=== PATIENT | male | born 1980 ===

== ENCOUNTER 2020-02-16 16:38 | Outpatient (REF) | payer OTHER, SELFPAY | END 2020-02-16 16:39 | disposition home or self-care (01) | LOC: HO.LAB 16:38 | PROVIDERS: Visit Provider Nurse Practitioner Family | DX: B00.1 Herpesviral vesicular dermatitis (principal) | CPT/HCPCS: 87255 ==

== ENCOUNTER 2020-08-23 11:49 | Outpatient (REF) | payer OTHER, SELFPAY ==
[2020-08-23 13:31] LABS: Glucose Urine UA NEG (NEG); Leukocyte Esterase Urine NEG (NEG); Nitrite Urine NEG (NEG); Specific Gravity - Urine >= 1.030 (1.005-1.025); Urine Blood NEG (NEG); Urine Ketones NEG (NEG); Urine Protein NEG (NEG-TRACE)
[2020-08-23 13:31] LABS: MANUAL DIFF FLAG NO
[2020-08-23 13:34] LABS: Appearance Urine HAZY; Color Urine DARK YELLOW
[2020-08-23 13:43] LABS: Basophils Absolute Auto 0.1 X10*3/uL (0.0-0.2); Basophils Percent Auto 1.2 % (0-2); Eosinophils Absolute Auto 0.2 X10*3/uL (0.0-0.4); Eosinophils Percent Auto 2.5 % (0-4); Hematocrit 42.6 % (42-52); Hemoglobin 14.1 g/dl (14.0-18.0); Imm Gran Abs Auto 0.01 X10*3/uL (0.00-0.03); Imm Gran Pct Auto 0.2 % (0.0-0.4); Lymphocytes Absolute Auto 2.2 X10*3/uL (1.2-4.9); Lymphocytes Percent Auto 37.3 % (20-40); Mean Corpuscular HGB Conc 33.1 g/dl (31.0-36.0); Mean Corpuscular Hemoglobin 30.7 pg (27.0-33.0); Mean Corpuscular Volume 92.8 fL (80-98); Mean Platelet Volume 10.2 fL (9.4-12.4); Monocytes Absolute Auto 0.5 X10*3/uL (0.1-1.2); Monocytes Percent Auto 8.4 % (2-11); Neutrophils Percent Auto 50.4 % (45-73); Platelet Count 333 X10*3/uL (160-400); Red Blood Count 4.59 X10*6/uL (4.60-5.80); Red Cell Distribution Width 12.8 % (11.0-16.0)
[2020-08-23 14:01] LABS: Alanine Aminotransferase 22 U/L (0-40); Albumin Level 4.4 g/dL (3.5-5.0); Alkaline Phosphatase 57 U/L (39-117); Anion Gap 13 (12-20); Aspartate Amino Transferase 29 U/L (5-37); Bilirubin Total 1.7 mg/dL (0.0-1.0); Blood Urea Nitrogen 20 mg/dL (9-16); Calcium 9.5 mg/dL (8.4-10.2); Carbon Dioxide 29 mmol/L (22-29); Chloride 103 mmol/L (96-108); Cholesterol 181 mg/dL; Estimated Glomerular Filt Rate > 60; Glucose Fasting 93 mg/dL (60-99); HDL Cholesterol 75 mg/dL; LDL Cholesterol Calculated 96 mg/dl; Potassium 4.1 mmol/L (3.3-5.1); Sodium 141 mmol/L (135-145); Total Protein 6.9 g/dL (6.5-8.0); Triglycerides 50 mg/dL
[2020-08-23 14:15] LABS: TSH reflex Free T4 1.92 uIU/mL (0.32-4.0); Vitamin D 25-OH Total 18.2 ng/mL (>30)
[2020-08-23 14:30] LABS: Folate 16.6 ng/mL (> or = 4.0); Vitamin B12 215 pg/mL (200-900)
[2020-08-23 14:36] LABS: Erythrocyte Sedimentation Rate 19 MM/HR (0-15)
== END 2020-08-23 11:50 | disposition home or self-care (01) ==
LOC: HO.LAB 11:49
PROVIDERS: PCP Internal Medicine; Visit Provider Internal Medicine
DX: Z00.00 Encounter for general adult medical examination without abnormal findings (principal); E66.9 Obesity, unspecified; E78.00 Pure hypercholesterolemia, unspecified; R20.2 Paresthesia of skin; I10 Essential (primary) hypertension; E55.9 Vitamin D deficiency, unspecified
CPT/HCPCS: 36415; 80053; 80061; 81003; 82306; 82607; 82746; 84443; 85025; 85652

== ENCOUNTER → 2021-01-16 11:37 | Outpatient (BNVA) | payer OTHER, SELFPAY | PROVIDERS: PCP Internal Medicine; Referring Provider Internal Medicine; Visit Provider Psychiatry & Neurology Neurology ==

== ENCOUNTER → 2021-01-23 11:36 | Outpatient (BNVA) | payer OTHER, SELFPAY | PROVIDERS: PCP Internal Medicine; Referring Provider Internal Medicine; Visit Provider Nurse Practitioner Family ==

== ENCOUNTER → 2021-02-21 12:47 | Outpatient (REF) | payer OTHER, SELFPAY | LOC: HO.SL 12:47 | PROVIDERS: PCP Internal Medicine; Visit Provider Nurse Practitioner Family | DX: R06.81 Apnea, not elsewhere classified (principal); R40.0 Somnolence; R06.83 Snoring | CPT/HCPCS: 95806 ==

== ENCOUNTER → 2021-05-08 14:01 | Outpatient (BNVA) | payer OTHER, SELFPAY | PROVIDERS: PCP Internal Medicine; Referring Provider Internal Medicine; Visit Provider Nurse Practitioner Family ==

== ENCOUNTER 2022-03-04 16:32 | Outpatient (REF) | payer OTHER, SELFPAY ==
[2022-03-04 17:19] LABS: Influenza A PCR NEGATIVE (Negative); Influenza B PCR NEGATIVE (Negative); Resp Syncy Virus RNA Qual PCR NEGATIVE (Negative); SARS COV2 PCR INHOUSE POSITIVE (Negative)
== END 2022-03-04 16:33 | disposition home or self-care (01) ==
LOC: HO.LNP 16:32
PROVIDERS: Visit Provider Nurse Practitioner Family
DX: Z20.822 Contact with and (suspected) exposure to COVID-19 (principal); J06.9 Acute upper respiratory infection, unspecified
CPT/HCPCS: 0241U

== ENCOUNTER → 2022-07-18 15:36 | Outpatient (BNVA) | payer OTHER, SELFPAY | PROVIDERS: PCP Internal Medicine; Visit Provider Nurse Practitioner Family | DX: Z13.89 Encounter for screening for other disorder (principal) ==

== ENCOUNTER 2022-12-05 09:20 | Emergency (ER) | payer OTHER, SELFPAY ==
--- NOTE | 2022-12-05 09:25 | ECG_ITS ---
Test Reason : chest pain Blood Pressure : / mmHG Vent. Rate : 066 BPM Atrial Rate : 066 BPM P-R Int : 190 ms QRS Dur : 114 ms QT Int : 422 ms P-R-T Axes : 015 -39 002 degrees QTc Int : 442 ms Normal sinus rhythm Left axis deviation Moderate voltage criteria for LVH, may be normal variant ( R in aVL , [place] product ) Abnormal ECG When compared with ECG of 27-OCT-2019 09:31, No significant change was found Referred By: Generic ED Physician Electronically Signed By:JENNIFER STROUD
[2022-12-05 09:52] VITALS: BP 129/87; PULSE 70; RESP 10; TEMP 36.7; O2SAT 97; BMI 38.5
[2022-12-05 09:53] LABS: MANUAL DIFF FLAG NO
[2022-12-05 09:57] LABS: Basophils Absolute Auto 0.1 X10*3/uL (0.0-0.2); Basophils Percent Auto 0.7 % (0-2); Eosinophils Absolute Auto 0.2 X10*3/uL (0.0-0.4); Eosinophils Percent Auto 3.2 % (0-4); Hemoglobin 15.4 g/dl (14.0-18.0); Imm Gran Abs Auto 0.02 X10*3/uL (0.00-0.03); Imm Gran Pct Auto 0.3 % (0.0-0.4); Lymphocytes Absolute Auto 2.6 X10*3/uL (1.2-4.9); Lymphocytes Percent Auto 38.5 % (20-40); Mean Corpuscular HGB Conc 34.2 g/dl (31.0-36.0); Mean Corpuscular Hemoglobin 31.2 pg (27.0-33.0); Mean Corpuscular Volume 91.1 fL (80.0-98.0); Mean Platelet Volume 9.7 fL (9.4-12.4); Monocytes Absolute Auto 0.5 X10*3/uL (0.1-1.2); Monocytes Percent Auto 7.6 % (2-11); Neutrophils Absolute Auto 3.4 x10*3/uL (2.0-8.3); Neutrophils Percent Auto 49.7 % (45-73); Platelet Count 279 X10*3/uL (160-400); Red Blood Count 4.94 X10*6/uL (4.60-5.80); Red Cell Distribution Width 12.5 % (11.0-16.0); White Blood Count 6.8 X10*3/uL (4.8-10.8)
[2022-12-05 10:14] LABS: Anion Gap 10 (12-20); Blood Urea Nitrogen 16 mg/dL (9-16); Calcium 9.3 mg/dL (8.4-10.2); Carbon Dioxide 27 mmol/L (22-29); Chloride 106 mmol/L (96-108); Creatinine Clr Calc Pharmacy 125.7; Estimated Glomerular Filt Rate > 60; Glucose Random 97 mg/dL (60-115); Potassium 3.9 mmol/L (3.3-5.1); Sodium 139 mmol/L (135-145)
[2022-12-05 10:25] LABS: Troponin-I High Sensitivity < 2.7 ng/L (<3.5-35.0)
--- NOTE | 2022-12-05 12:31 | ED_ITS ---
HPI - Chest Pain General Chief Complaint: Chest Pain Stated Complaint: chest discomfort Time Seen by Provider: 12/05/22 12:23 Source: patient and old records reviewed Mode of arrival: ambulatory Limitations: no limitations History of Present Illness HPI narrative: 42 yo male with hx of asthma, anxiety, obesity, HLD here with c/o chest pain x 1 month better with burping, no symtoms while exercising at the gym and no other associated symptoms. no known CAD, no travel or procedures in last month. States his job is stressful. this happened 15 years ago and he was told it was stress MD complaint: chest pain Onset (ago): month(s) (1) Timing of current episode: episodic Prior episodes: Yes Onset: during rest Pain location: left chest Pain radiation: none Severity: mild Quality: dull Relieving factors: nothing Exacerbating factors: nothing Treatment prior to arrival: none Related Data Previous Rx's Medication Instructions Recorded azithromycin 250 mg tablet See Rx Instructions PO .COMPLEX #6 07/30/22 tabs prednisone 20 mg tablet 60 mg PO DAILY #9 tabs 07/30/22 albuterol sulfate 90 mcg/actuation 2 puff PO Q6H PRN for wheezing 10/07/22 aerosol inhaler #8.5 ea montelukast 10 mg tablet 10 mg PO BEDTIME #90 tabs 10/30/22 Allergies Allergy/AdvReac Type Severity Reaction Status Date / Time No Known Allergies Allergy Verified 07/30/22 16:32 Review of Systems Review of Systems: Constitutional : No Weight loss, No Fever, No Chills Cardiovascular : pos Chest Pain, no SOB, no Dyspnea on Exertion, No Orthopnea, No Edema, No Palpitations Respiratory : No Cough, No Sputum Gastrointestinal : no Nausea, No Vomiting, No Diarrhea, No abdominal Pain, No Hematochezia, No Melena Genitourinary : No Dysuria, No Urinary Frequency Musculoskeletal : No joint pain, No Myalgias, No Joint Swelling Skin : No Skin Lesions, No rash Neuro : No Weakness, No Numbness, No Dizziness, No Headache Psych : No Anxiety/Panic, No Depression All other systems reviewed and are negative [facility] Past Medical History Attestation statement: The following information was validated with the patient. Source: old records reviewed Medical History Anxiety Asthma Elevated blood pressure reading Excess skin of abdominal wall Obesity (BMI 30-39.9) Obstructive sleep apnea Paresthesia of left arm Pure hypercholesterolemia Vitamin D deficiency Surgical History History of hip surgery History of tonsillectomy Family History Family History Father Healthy adult Mother No problems noted. Sister Healthy adult Social History Social History Housing: House Alcohol intake: current Alcohol intake frequency: a few times a month Patient Tobacco Use Status: Never used Tobacco e-Cigarette/Vaping Use: Never Used Second Hand Smoke Exposure: No service: No Current occupational status: employed Cognitive needs: No Hearing needs: No Vision needs: Yes Physical Exam Vital Signs: Vital Signs: Last Vital Signs Temp 98.1 F 12/05/22 09:52 Pulse 70 12/05/22 09:52 Resp 10 L 12/05/22 09:52 BP 129/87 12/05/22 09:52 Pulse Ox 97 12/05/22 09:52 BMI result Body Mass Index 38.5 Appearance: Alert. Oriented X3. No acute distress. Eyes: Pupils equal, round and reactive to light. ENT: Pharynx normal. Neck: Normal inspection. Neck supple. CVS: Normal heart rate and rhythm. Pulses normal. Respiratory: No respiratory distress. Breath sounds normal. Abdomen: Soft and nontender. Skin: Skin warm and dry. Normal skin color. Normal skin turgor. Extremities: No lower extremity edema. No calf ttp Neuro: Oriented X 3. No motor deficit. No sensory deficit. Medical Decision Making Medical Decision Making MDM Narrative: 42 yo male with hx of asthma, anxiety, obesity, HLD here with c/o atypical chest pain for 1 month on and off with no associated symptoms relieved with burping. He feels great working out without any chest pain so atypical for ACS, PERC negative, he has normal pulses intact distally doubt dissection. EKG no acute ischemia and trop flat - he can follow up with cardiology will trial pepcid x 1 week to see if that improves his symptoms. Differential Diagnosis Differential Diagnoses: The differential diagnosis associated with the presentation includes GERD, atypical chest pain, PERC negative doubt VTE, acs low risk given avid work out without symptoms, MSK pain, dissection low risk given 1 month Admission/Observation Consideration of admission/observation: Escalation of care including admission/observation considered EKG nonischemic trop flat and HEART score = 1 can be followed up as outpatient Lab Data MDM Lab Attestation statement: I reviewed the patient's lab results. trop flat 12/05/22 09:40 12/05/22 09:40 Labs: Lab Results 12/05/22 12/05/22 12/05/22 Range/Units 09:40 09:40 09:40 WBC 6.8 (4.8-10.8) X10*3/uL RBC 4.94 (4.60-5.80) X10*6/uL Hgb 15.4 (14.0-18.0) g/dl Hct 45.0 (42.0-52.0) % MCV 91.1 (80.0-98.0) fL MCH 31.2 (27.0-33.0) pg MCHC 34.2 (31.0-36.0) g/dl RDW 12.5 (11.0-16.0) % Plt Count 279 (160-400) X10*3/uL MPV 9.7 (9.4-12.4) fL Immature Gran % (Auto) 0.3 (0.0-0.4) % Neut % (Auto) 49.7 (45-73) % Lymph % (Auto) 38.5 (20-40) % [place] % (Auto) 7.6 (2-11) % Eos % (Auto) 3.2 (0-4) % Baso % (Auto) 0.7 (0-2) % Lymph # (Auto) 2.6 (1.2-4.9) X10*3/uL [place] # (Auto) 0.5 (0.1-1.2) X10*3/uL Eos # (Auto) 0.2 (0.0-0.4) X10*3/uL Baso # (Auto) 0.1 (0.0-0.2) X10*3/uL Abs Immat Gran (auto) 0.02 (0.00-0.03) X10*3/uL Absolute Neuts (auto) 3.4 (2.0-8.3) x10*3/uL Absolute Nucleated RBC 0.000 (0.0-0.012) X10*3/uL Nucleated RBC % (auto) 0.0 (0.0-0.2) /100WBC Sodium 139 (135-145) mmol/L Potassium 3.9 (3.3-5.1) mmol/L Chloride 106 (96-108) mmol/L Carbon Dioxide 27 (22-29) mmol/L Anion Gap 10 L (12-20) BUN 16 (9-16) mg/dL Creatinine 1.04 (0.5-1.4) mg/dL Estim Creat Clear Calc 125.7 Estimated GFR > 60 Random Glucose 97 (60-115) mg/dL Calcium 9.3 (8.4-10.2) mg/dL Troponin I High Sens < 2.7 (<3.5-35.0) ng/L Independent Interpretation I performed an independent interpretation of an: EKG Interpretation: Rate: 66 Rhythm: NSR [place]: normal Normal P waves. Normal YOU. Normal QRS complex. ST T wave : inverted t waves V1 and III qTC: normal prior studies: no acute ischemia The study has been interpreted contemporaneously by me. . External Record Review External record reviewed: Office record Tests considered The following testing was considered but not selected: CXR but clear lungs and no dyspnea doubt pneumonia Discharge Plan Discharge Clinical Impression: Atypical chest pain Patient Disposition: Home, Self-Care Instructions: Chest Pain (ED) Additional Instructions: take 20mg pepcid over the counter daily for one week to see if this helps symptoms. avoid lat work out for a couple of days. follow up with cardiology for further workup return for worsening symptoms, increased pain, shortness of breath, fainting or any other concerns. Prescriptions: No Action albuterol sulfate 90 mcg/actuation HFA aerosol inhaler 2 puff PO Q6H PRN (Reason: for wheezing) Qty: 8.5 5RF montelukast 10 mg tablet 10 mg PO BEDTIME Qty: 90 1RF azithromycin 250 mg tablet See Rx Instructions PO .COMPLEX Qty: 6 0RF Rx Instructions: take 500 mg today (day 1), then 250 mg for 4 days (days 2-5) PO prednisone 20 mg tablet 60 mg PO DAILY Qty: 9 0RF Referrals: Taran La MD [Physician] - (schedule appointment - may need PCP referral. ) Interventions: ED Discharge Assessment Last Done: 12/05/22 12:55 Discharge Date/Time: 12/05/22 12:56
== END 2022-12-05 12:56 | disposition home or self-care (01) ==
PROVIDERS: Emergency Provider Emergency Medicine; PCP Internal Medicine
DX: R07.89 Other chest pain (principal); E78.00 Pure hypercholesterolemia, unspecified; E66.9 Obesity, unspecified; Z68.38 Body mass index [BMI] 38.0-38.9, adult
CPT/HCPCS: 36415; 80048; 84484; 85025; 93005; 99283

== ENCOUNTER 2023-01-08 17:01 | Emergency (ER) | payer OTHER, SELFPAY ==
--- NOTE | ~2023-01-08 | XR_ITS ---
EXAMINATION: XR CHEST CLINICAL INFORMATION: Chest pain. COMPARISON: 10/27/2019. TECHNIQUE: 2 views of the chest were obtained. FINDINGS: The cardiomediastinal silhouette is normal. There is no focal lung consolidation or pleural effusion. The bony structures and soft tissues are unremarkable. XR/XR chest 2V IMPRESSION: No active cardiopulmonary disease.
--- NOTE | 2023-01-08 17:04 | ECG_ITS ---
Test Reason : CHEST PAIN Blood Pressure : / mmHG Vent. Rate : 069 BPM Atrial Rate : 069 BPM P-R Int : 184 ms QRS Dur : 112 ms QT Int : 410 ms P-R-T Axes : 020 -41 012 degrees QTc Int : 439 ms Normal sinus rhythm Possible Left atrial enlargement Left axis deviation Left ventricular hypertrophy ( R in aVL , [place] product ) Abnormal ECG When compared with ECG of 05-DEC-2022 09:32, No significant change was found Referred By: Emily Rawls Electronically Signed By:JENNIFER STROUD
--- NOTE | 2023-01-08 17:32 | ED_ITS ---
HPI - Chest Pain General Chief Complaint: Chest Pain Stated Complaint: chest pain, back pain. seen same reason last mth Time Seen by Provider: 01/08/23 18:56 Source: patient Mode of arrival: ambulatory Limitations: no limitations History of Present Illness HPI narrative: Patient is a 42 old male who presents emergency department for evaluation of 2 months of left anterior chest pain that has been constant in nature with variable intensity. At times it is made worse with exercise/movement of the extremities, heavy lifting but is also felt while at rest. Denies shortness of breath, difficulty breathing, dizziness, lightheadedness, neck pain, neck stiffness, abdominal pain, nausea, vomiting, numbness or tingling of the extremities. Denies recent lower extremity pain, swelling, redness, prolonged immobilization or surgical procedure, personal history of DVT/PE/malignancy. He endorses history of similar symptoms in the remote past which was thought to be related to stress. Related Data Previous Rx's Medication Instructions Recorded azithromycin 250 mg tablet See Rx Instructions PO .COMPLEX #6 07/30/22 tabs prednisone 20 mg tablet 60 mg (3 x 20 mg) PO DAILY #9 tabs 07/30/22 albuterol sulfate 90 mcg/actuation 2 puff PO Q6H PRN for wheezing 10/07/22 aerosol inhaler #8.5 ea montelukast 10 mg tablet 10 mg PO BEDTIME #90 tabs 10/30/22 Allergies Allergy/AdvReac Type Severity Reaction Status Date / Time No Known Allergies Allergy Verified 01/08/23 17:32 Review of Systems 2 Review of Systems: Yes all other systems are reviewed and are negative [facility] Past Medical History Attestation statement: The following information was validated with the patient. Source: old records reviewed Medical History Obstructive sleep apnea Elevated blood pressure reading Excess skin of abdominal wall Paresthesia of left arm Anxiety Obesity (BMI 30-39.9) Pure hypercholesterolemia Vitamin D deficiency Asthma Surgical History History of hip surgery History of tonsillectomy Family History Family History Father Healthy adult Mother No problems noted. Sister Healthy adult Social History Social History (Reviewed 12/05/22 @ 12:32 by BRITTANY Tadeo Housing: House Alcohol intake: current Alcohol intake frequency: a few times a month Patient Tobacco Use Status: Never used Tobacco Smoked in Last 30 Days: No e-Cigarette/Vaping Use: Never Used Second Hand Smoke Exposure: No Advance Directives: No Advance Directives Information Provided: No service: No Current occupational status: employed Cognitive needs: No Hearing needs: No Vision needs: Yes Physical Exam 2 Vital Signs: Vital Signs: Last Vital Signs Temp 98 F 01/08/23 17:33 Pulse 84 01/08/23 17:33 Resp 18 01/08/23 17:33 BP 137/96 H 01/08/23 17:33 Pulse Ox 100 01/08/23 17:33 O2 Del Method Room Air 01/08/23 17:33 BMI result Body Mass Index 38.1 Appearance: Alert.?Oriented to person, place and time. No acute distress.?Normal affect. Eyes: Pupils equal, round and reactive to light.? ENT: Pharynx normal.?? Neck: Normal inspection.? Neck supple.?? CVS: Heart sounds normal. Normal heart rate and rhythm.? Pulses normal.?? Respiratory: No respiratory distress.? Lung sounds clear to auscultation bilaterally?? Abdomen: Soft and non-tender. Normoactive bowel sounds. No pulsatile mass.?? Skin: Skin warm and dry.? Normal skin color.? ? Extremities: No lower extremity edema.? No calf ttp? Neuro: Moves all extremities spontaneously. Sensation intact bilaterally. CN II- XII intact. No focal neuro deficits. Ambulates with normal steady gait. Course Course Course Narrative: RME: 42-year-old male with past medical history anxiety, asthma, RADHA, HLD presenting to the ED complaining of constant chest pain x2 months. Admits working out w/certain movements makes pain worse & stress makes pain worse. Described as sharp, nonradiating. Denies SOB, LE edema, travel Lungs CTA, CP not reproducible on exam EKG, Labs, CXR ordered Full HPI, ROS and PE to be performed by primary ED provider. Reevaluation(s) Reevaluation #1: CBC is without leukocytosis or anemia, CMP is unremarkable. High sensitive troponin below detectable levels an EKG is without acute ischemic findings. HEART score 1. Unlikely ACS, no indication for admission at this time. Although PERC negative and no risk factors to suggest pulmonary embolism given persistent pain D-dimer was obtained which was negative, reassured patient this is unlikely pulmonary embolism. Advised outpatient follow-up with his primary care provider, who is working to try and obtain earlier outpatient appointment with Cardiology. Currently Cardiology appointment scheduled for March 2023. Although as previously mentioned chest pain is atypical. Time: 21:28 Medications Administered Discontinued Medications Generic Name Dose Route Start Last Admin Trade Name Freq PRN Reason Stop Dose Admin Naproxen 500 mg 01/08/23 20:34 01/08/23 20:41 Naproxen 500 Mg Tablet PO 01/08/23 20:35 500 mg ONCE ONE Administration Medical Decision Making Medical Decision Making [facility] Narrative: Patient is a 42 old male with past medical history of asthma, anxiety, BC, hyperlipidemia presenting to emergency department for evaluation of persistent chest pain as per HPI. The time my examination he is overall well-appearing, nontoxic, afebrile, without tachycardia tachypnea or hypoxia. Pain is atypical in nature, less likely to be ACS, perc negative unlikely pulmonary embolism, pulsatile mass, doubt dissection. Will obtain CBC to evaluate for leukocytosis/ anemia, CMP and lipase to evaluate for abnormal electrolytes /abnormal renal function/ abnormal hepatic/biliary function, EKG and troponin to evaluate for ischemia/ACS. Chest x-ray to evaluate for consolidation/ infiltrate/ mass/ pulmonary congestion. Differential Diagnosis Differential Diagnoses: The differential diagnosis associated with the presentation includes (GERD, atypical chest pain, pulmonary embolism, ACS, musculoskeletal pain) Admission/Observation Consideration of admission/observation: Escalation of care including admission/observation considered (Considered admission for chest pain, see course narrative for further detail) Lab Data [facility] Lab Attestation statement: I reviewed the patient's lab results. (See course narrative for further detail) 01/08/23 18:09 01/08/23 18:09 Labs: Lab Results 01/08/23 01/08/23 Range/Units 18:09 20:50 WBC 8.8 (4.8-10.8) X10*3/uL RBC 5.00 (4.60-5.80) X10*6/uL Hgb 15.7 (14.0-18.0) g/dl Hct 44.9 (42.0-52.0) % MCV 89.8 (80.0-98.0) fL MCH 31.4 (27.0-33.0) pg MCHC 35.0 (31.0-36.0) g/dl RDW 12.2 (11.0-16.0) % Plt Count 325 (160-400) X10*3/uL MPV 9.7 (9.4-12.4) fL Immature Gran % (Auto) 0.5 H (0.0-0.4) % Neut % (Auto) 55.6 (45-73) % Lymph % (Auto) 33.1 (20-40) % [place] % (Auto) 8.2 (2-11) % Eos % (Auto) 1.9 (0-4) % Baso % (Auto) 0.7 (0-2) % Lymph # (Auto) 2.9 (1.2-4.9) X10*3/uL [place] # (Auto) 0.7 (0.1-1.2) X10*3/uL Eos # (Auto) 0.2 (0.0-0.4) X10*3/uL Baso # (Auto) 0.1 (0.0-0.2) X10*3/uL Abs Immat Gran (auto) 0.04 H (0.00-0.03) X10*3/uL Absolute Neuts (auto) 4.9 (2.0-8.3) x10*3/uL Absolute Nucleated RBC 0.000 (0.0-0.012) X10*3/uL Nucleated RBC % (auto) 0.0 (0.0-0.2) /100WBC D-Dimer High Sensitivty < 150 NG/ML Sodium 142 (135-145) mmol/L Potassium 3.7 (3.3-5.1) mmol/L Chloride 104 (96-108) mmol/L Carbon Dioxide 28 (22-29) mmol/L Anion Gap 14 (12-20) BUN 12 (9-16) mg/dL Creatinine 0.90 (0.5-1.4) mg/dL Estim Creat Clear Calc 144.5 Estimated GFR > 60 Random Glucose 87 (60-115) mg/dL Calcium 9.8 (8.4-10.2) mg/dL Total Bilirubin 0.9 (0.0-1.0) mg/dL Direct Bilirubin 0.3 (0.0-0.5) mg/dL AST 20 (5-37) U/L ALT 13 (0-40) U/L Alkaline Phosphatase 69 (39-117) U/L Troponin I High Sens < 2.7 (<3.5-35.0) ng/L Total Protein 7.6 (6.5-8.0) g/dL Albumin 4.4 (3.5-5.0) g/dL Independent Interpretation I performed an independent interpretation of an: EKG and Plain X-Ray (I personally interpreted chest x-ray and agree with radiologist impression, no evidence of consolidation pneumonia or pulmonary congestion) Interpretation: Rate: 69 Rhythm:? Normal sinus rhythm with LVH Normal P waves.? Normal YOU.?? Normal QRS complex.?? ST T wave :??No ST elevation, no ST depression, T-wave inversion in III, which is seen on prior qTC:439 prior studies:? November 2022 The study has been interpreted contemporaneously by me. Radiology Impression Discussion of test interpretation with radiology: I have reviewed the radiologist's reading. Radiologist Impression: XR/XR chest 2V IMPRESSION: No active cardiopulmonary disease. External Record Review External record reviewed: Outpatient record Discharge Plan Discharge Clinical Impression: Atypical chest pain Patient Disposition: Home, Self-Care Instructions: Chest Pain (ED), Noncardiac Chest Pain (ED) Additional Instructions: As discussed you may trial a course of anti-inflammatory medication to help with pain. You can take ibuprofen 200 mg, 3 tablets (600mg) every 6-8 hours as needed for pain, in addition to Tylenol 500 mg, 2 tablets (1,000mg) every 4-6 hours as needed for pain, but not to exceed 3 doses daily (3,000mg).? Please contact your primary care provider to arrange for follow-up within the next 3 days, and further follow-up with cardiology as scheduled. You may return back to the emergency department with any new or worsening symptoms or concerns. Prescriptions: No Action albuterol sulfate 90 mcg/actuation HFA aerosol inhaler 2 puff PO Q6H PRN (Reason: for wheezing) Qty: 8.5 5RF montelukast 10 mg tablet 10 mg PO BEDTIME Qty: 90 1RF azithromycin 250 mg tablet See Rx Instructions PO .COMPLEX Qty: 6 0RF Rx Instructions: take 500 mg today (day 1), then 250 mg for 4 days (days 2-5) PO prednisone 20 mg tablet 60 mg PO DAILY Qty: 9 0RF Referrals: Kofi Bright MD [Primary Care Provider] -
[2023-01-08 17:33] VITALS: BP 137/96; PULSE 84; RESP 18; TEMP 36.6; O2SAT 100; BMI 38.1
[2023-01-08 18:21] LABS: MANUAL DIFF FLAG NO
[2023-01-08 18:35] LABS: Alanine Aminotransferase 13 U/L (0-40); Albumin Level 4.4 g/dL (3.5-5.0); Alkaline Phosphatase 69 U/L (39-117); Anion Gap 14 (12-20); Aspartate Amino Transferase 20 U/L (5-37); Basophils Absolute Auto 0.1 X10*3/uL (0.0-0.2); Basophils Percent Auto 0.7 % (0-2); Bilirubin Direct 0.3 mg/dL (0.0-0.5); Bilirubin Total 0.9 mg/dL (0.0-1.0); Blood Urea Nitrogen 12 mg/dL (9-16); Calcium 9.8 mg/dL (8.4-10.2); Carbon Dioxide 28 mmol/L (22-29); Chloride 104 mmol/L (96-108); Creatinine Clr Calc Pharmacy 144.5; Eosinophils Absolute Auto 0.2 X10*3/uL (0.0-0.4); Eosinophils Percent Auto 1.9 % (0-4); Estimated Glomerular Filt Rate > 60; Glucose Random 87 mg/dL (60-115); Hematocrit 44.9 % (42.0-52.0); Hemoglobin 15.7 g/dl (14.0-18.0); Imm Gran Abs Auto 0.04 X10*3/uL (0.00-0.03); Imm Gran Pct Auto 0.5 % (0.0-0.4); Lymphocytes Absolute Auto 2.9 X10*3/uL (1.2-4.9); Lymphocytes Percent Auto 33.1 % (20-40); Mean Corpuscular Hemoglobin 31.4 pg (27.0-33.0); Mean Corpuscular Volume 89.8 fL (80.0-98.0); Mean Platelet Volume 9.7 fL (9.4-12.4); Monocytes Absolute Auto 0.7 X10*3/uL (0.1-1.2); Monocytes Percent Auto 8.2 % (2-11); Neutrophils Absolute Auto 4.9 x10*3/uL (2.0-8.3); Neutrophils Percent Auto 55.6 % (45-73); Platelet Count 325 X10*3/uL (160-400); Potassium 3.7 mmol/L (3.3-5.1); Red Cell Distribution Width 12.2 % (11.0-16.0); Sodium 142 mmol/L (135-145); Total Protein 7.6 g/dL (6.5-8.0); White Blood Count 8.8 X10*3/uL (4.8-10.8)
[2023-01-08 18:43] LABS: Troponin-I High Sensitivity < 2.7 ng/L (<3.5-35.0)
[2023-01-08] MEDS: NaPROXEN 500 MG TABLET PO (20:41)
--- NOTE | 2023-01-08 20:51 | PC.NURSE ---
pt medicated per JUN for 10/21 left upper cp
[2023-01-08 21:22] LABS: D Dimer High Sensitivity < 150 NG/ML
== END 2023-01-08 21:52 | disposition home or self-care (01) ==
PROVIDERS: Nurse Practitioner Family; Physician Assistant; Emergency Provider Emergency Medicine; PCP Internal Medicine
DX: R07.89 Other chest pain (principal); M54.50 Low back pain, unspecified; G47.33 Obstructive sleep apnea (adult) (pediatric); Z79.899 Other long term (current) drug therapy
CPT/HCPCS: 36415; 71046; 80048; 80076; 84484; 85025; 85379; 93005; 99284

== ENCOUNTER 2023-01-24 15:06 | Outpatient (AMB) | payer OTHER, SELFPAY ==
[2023-01-24 15:13] VITALS: BP 132/96; PULSE 95; RESP 17; O2SAT 98; BMI 38.6
--- NOTE | 2023-01-24 15:13 | MHC.PC.OV ---
Vital Signs 01/24/23 15:13 Height 6 ft Weight 285 lb BMI 38.6 BP 132/96 H Blood Pressure Location Lt brachial Position Sitting Respiration 17 Pulse 95 Pulse Source Pulse Oximeter Pulse Oximetry (%) 98 Oxygen Delivery Method Room Air Intake Visit Reasons: patient requesting pe Intake Note: Patient is here today for a physical. Pt seen seen multiple time at the ER for chest discomfort near the heart area. Last EKG done at [facility]- possible Left atrial enlargement. Cardiology consult is scheduled for 04/03/23 at 1:00 p.m and pt would like to be seen sooner. 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: No Accompanied by: Self / Same As Patient Allergies No Known Allergies Allergy (Verified 01/24/23 15:52) Medication List - Last Reconciled 01/24/23 by Kofi Bright MD albuterol sulfate 90 mcg/actuation 2 puffs PO Q6H PRN montelukast 10 mg PO BEDTIME naproxen 500 mg PO BID PRN Tobacco use date assessed: 01/24/23 Dental Screening Dental Screen Date: 01/24/23 Did you have a dental visit in the last 12 months?: Yes Did you have a dental problem in the last 6 months where you did not have access to dental care?: No Was dental information given to patient?: Patient has dentist HPI patient requesting pe HPI Details Patient comes in today for his annual physical examination - was last seen by me in August 2021 Relates that he went to the ER twice in the past few weeks (on 12/05/22 and then on 01/08/23) for recurrent anterior chest pains Describes his chest pains as more of heartburn-like symptoms rather than actual sharp pains States that he is able to work out at the gym and lift weights as well as go on a treadmill and these do not seem to make his chest symptoms worse but he is still concerned about his recurrent symptoms States that he had a 3 y/o child that he needs to be around for and would like to get these checked out ABBE He has requested for a cardiology referral and was given an appt for March 2023 - states that he does not want to wait 2 months to find out whether he is having some heart issues or not He denies any headaches or dizziness Denies any SOB No nausea/vomiting, no abdominal pain No change in bowel habits noted Denies any acute urinary symptoms [facility] Medical History Obstructive sleep apnea Elevated blood pressure reading Excess skin of abdominal wall Paresthesia of left arm Anxiety Obesity (BMI 30-39.9) Pure hypercholesterolemia Vitamin D deficiency Asthma Surgical History History of hip surgery History of tonsillectomy Family History Father Healthy adult Mother No problems noted. Sister Healthy adult Social History Housing: House Alcohol intake: current Alcohol intake frequency: a few times a month Patient Tobacco Use Status: Never used Tobacco e-Cigarette/Vaping Use: Never Used Second Hand Smoke Exposure: No service: No Current occupational status: employed Cognitive needs: No Hearing needs: No Vision needs: Yes Questionnaire PHQ-9 Over the last 2 weeks, how often have you been bothered by any of the following problems? 1. Little interest or pleasure in doing things: not at all 2. Feeling down, depressed, or hopeless: not at all 3. Trouble falling or staying asleep, or sleeping too much: not at all 4. Feeling tired or having little energy: not at all 5. Poor appetite or overeating: not at all 6. Feeling bad about yourself - or that you are a failure or have let yourself or your family down: not at all 7. Trouble concentrating on things, such as reading the newspaper or watching television: not at all 8. Moving or speaking so slowly that other people could have noticed. Or the opposite - being so fidgety or restless that you have been moving around a lot more than usual: not at all 9. Thoughts that you would be better off or of hurting yourself in some way: not at all Total score: 0 Depression Screening Interpretation: Negative Depression Screening Done: Yes 90414 - PHQ-9 Billing: Yes Source: Developed by Drs. Nadir Bean, Alysa Hernandez, Helder Hayes and colleagues, with an educational maia from [employer]. Thrive Questionnaire Date Thrive assessed: 01/24/23 I am a: Patient What is your living situation today?: I have a steady place to live Within the past 12 months, did the food you bought not last and you didn't have the money to get more?: Never true Within the past 12 months, did you worry whether your food would run out before you got money to buy more?: Never true Do you have trouble paying for medicines?: No Do you have trouble getting transportation to medical appointments?: No Do you have trouble paying your heating and electricity bill?: No Do you have trouble taking care of your child, family member or friend?: No Do you have trouble with day-to-day activities such as bathing, preparing meals, shopping, managing finances, etc.?: No Are you currently unemployed and looking for a job?: No Are you interested in more education?: No Currently or been in a relationship where the following occur: no concerns reported AUDIT C Alcohol Use Questionnaire (AUDIT-C) 1. How often do you have a drink containing alcohol?: Monthly or less 2. How many drinks containing alcohol do you have on a typical day when you are drinking?: 1 or 2 3. How often do you have six or more drinks on one occasion?: Never Total Score: 1 Score Reviewed/Action Taken: Yes KADY-7 AMB Questionnaire KADY-7 Date KADY - 7 assessed: 08/31/21 Source: Developed by Drs. Nadir Bean, Alysa Hernandez, Helder Hayes and colleagues, with an educational maia from [employer]. Review of Systems Const Denies chills, Denies fatigue, Denies fever(s), Denies headache(s), Denies malaise and Denies weakness Eyes Denies blurry vision, Denies change in vision, Denies irritation and Denies itchy eyes ENT Denies dysphagia, Denies dizziness, Denies otalgia, Denies headache(s), Denies nasal congestion, Denies neck pain, Denies odynophagia and Denies sore throat Card Reports chest pain (recurrent-described as similar to heartburns although he denies heartburns), Denies rapid heart rate, Denies irregular heart rhythm, Denies palpitations and Denies dyspnea Resp Denies chest congestion, Denies cough, Denies dyspnea and Denies wheezing GI Denies abdominal pain, Denies bloating, Denies constipation, Denies dysphagia, Denies heartburn, Denies diarrhea, Denies nausea, Denies odynophagia and Denies vomiting Denies hematuria, Denies difficulty urinating, Denies dysuria, Denies urinary frequency and Denies urinary urgency Musc Denies back pain, Denies arthralgias, Denies joint swelling, Denies muscle weakness and Denies neck pain Skin/Breast Denies change in pigmentation, Denies lesions, Denies rash and Denies unusual bruising Neuro Denies dizziness, Denies headache(s), Denies paresthesias and Denies weakness Endo Denies fatigue and Denies palpitations Aller/Immun Denies itchy eyes and Denies wheezing Physical exam (Primary Care) Vital Signs: Last Vital Signs Pulse 95 01/24/23 15:13 Resp 17 01/24/23 15:13 BP 132/96 H 01/24/23 15:13 Pulse Ox 98 01/24/23 15:13 Oxygen Delivery Method Room Air 01/24/23 15:13 BMI result Body Mass Index 38.6 Tobacco/Smoking Status: Tobacco use Status Tobacco use date assessed 01/24/23 01/24/23 15:24 Patient Tobacco Use Status Never used Tobacco 01/24/23 15:17 e-Cigarette/Vaping Use Never Used 01/24/23 15:17 Depression Screening Interpretation: Negative Thrive Assessment: Date of Thrive Assessment Date Thrive assessed 08/31/21 01/24/23 15:17 Currently or been in a relationship where the following occur: no concerns reported Const General: no acute distress, alert and awake Orientation/consciousness: patient oriented x3 [facility] Head: Yes normocephalic and Yes atraumatic Ears: external ears normal, TM's normal bilaterally and EAC's normal General nose exam: No nasal discharge present Face and sinus: Yes normal facial exam and Yes sinuses nontender Teeth and gingiva: dentition normal Throat: Yes posterior oropharynx normal and Yes tonsils normal (no TP congestion) Eyes Eyelids: Yes eyelids normal Conjunctivae: conjunctivae normal Pupils: Equal, round and reactive pupils present EOM: EOMs intact bilaterally Neck Neck: Yes no lymphadenopathy and Yes supple Thyroid: Thyroid normal Resp Auscultation: clear to auscultation bilaterally, no rales and no wheezes Cardio Rate: regular rate Rhythm: regular rhythm Heart sounds: no murmurs GI Palpation (GI): Soft to palpation, nontender and No hepatosplenomegaly present Auscultation: normal bowel sounds General: Yes no CVA tenderness Back/Spine/Pelvis Back: no CVA tenderness Thoracic/Lumbar Spine: thoracic and lumbar spine normal to inspection Skin Lesions: no lesions Rashes: no rashes Neuro General: patient oriented x3, moves all extremities, no focal motor deficits and CN's II-XI intact bilaterally Cranial nerves: Yes Equal, round and reactive pupils present Cognition (Neuro): normal cognition Gait exam (Neuro): Normal gait present Extrem General: Yes no clubbing, cyanosis or edema Assessment and Plan Assessment & Plan (1) Annual physical exam: Code(s): Z00.00 - Encounter for general adult medical examination without abnormal findings Plan: Check labs ABBE (2) Chest pressure: Code(s): R07.89 - Other chest pain Plan: Patient's EKGs done recently (on 12/05/22 and 01/08/23) show NSR with possible LAE, LAD and LVH (presence of R wave in aVL) but are mostly unchanged compared to his EKGs done in 2019 and in 2013 - his EKG back in 2013 also did show a left axis deviation with (+) R wave in aVL suggestive of LVH He has an appointment scheduled to see cardiology and is instructed to make sure he keeps that appt. He is also on a cancellation list so he will be called in earlier if anyone cancels his or her appt He is advised in the meantime to start taking low dose Aspirin 81 mg QD at least until he is seen by cardiology Will send him for some additional labs for further evaluation Will also send him for an echocardiogram ABBE for further evaluation (3) Pure hypercholesterolemia: Code(s): E78.00 - Pure hypercholesterolemia, unspecified Plan: Reinforced low cholesterol diet Will recheck his fasting lipids ABBE for follow up (4) Benign essential hypertension: Code(s): I10 - Essential (primary) hypertension Plan: Reinforced low sodium diet Patient used to take Losartan 25 mg QD (had a recurrent cough when he was on Lisinopril previously) but he stopped taking Losartan when his BP improved significantly after he was able to lose weight down to about 220 pounds a few years ago He has since gained weight again to his current 285 pounds His BP has been up and down over the past few years and with his current symptoms, have advised that he should start back on Losartan 25 mg QD for now until his chest symptoms get checked out further Have instructed patient to call if he starts experiencing recurrent symptoms of hypotension, including dizziness/lightheadedness that are especially triggered by changes in position and his systolic BP drops below 100 mm consistently (5) Obstructive sleep apnea: Comment: Mild to moderate degree of sleep apnea. The AHI was 15/hr and oxygen denise was 86%. Code(s): G47.33 - Obstructive sleep apnea (adult) (pediatric) Plan: Was diagnosed with moderate RADHA on previous sleep study Continue using his CPAP device when sleeping at night Follow up with Sleep Medicine as scheduled (6) Asthma: Code(s): J45.909 - Unspecified asthma, uncomplicated Qualifiers: Asthma severity: mild Asthma persistence: intermittent Asthma complication type: uncomplicated Qualified Code(s): J45.20 - Mild intermittent asthma, uncomplicated Plan: Stable - continue Montelukast 10 mg QD and Albuterol HFA 2 inhalations every 6 hours as needed (7) Vitamin D deficiency: Code(s): E55.9 - Vitamin D deficiency, unspecified Plan: He has not been taking his Vitamin D supplements in a while now Will recheck his Vitamin D level ABBE for follow up (8) Anxiety: Code(s): F41.9 - Anxiety disorder, unspecified Plan: Used to take Hydroxyzine PRN but stopped taking it a while back when he felt that his anxiety was better controlled although he has been getting more anxious again lately due to his recurrent chest symptoms Does not wish to take anything for his anxiety at this time and just wants to get his heart checked out ABBE (9) Obesity (BMI 30-39.9): Code(s): E66.9 - Obesity, unspecified Plan: Reinforced diet/exercise as tolerated/lose weight Plan Follow up in 3 months but is advised that if any of his tests and/or labs come back with concerning results, we will check back with him ABBE and see him again sooner if appropriate or necessary Orders: Orders Lipid Panel 01/24/23 E78.00 - Pure hypercholesterolemia, unspecified, R07.9 - Chest pain, unspecified C Reactive Protein 01/24/23 R07.9 - Chest pain, unspecified Erythrocyte Sedimentation Rate 01/24/23 M79.7 - Fibromyalgia, R07.9 - Chest pain, unspecified TSH reflex Free T4 01/24/23 E78.00 - Pure hypercholesterolemia, unspecified, R07.9 - Chest pain, unspecified Vitamin D 25-OH Total 01/24/23 E55.9 - Vitamin D deficiency, unspecified, R07.9 - Chest pain, unspecified Troponin-I High Sensitivity 01/24/23 R07.9 - Chest pain, unspecified CA echo transthoracic complete 01/24/23 I51.7 - Cardiomegaly, R07.9 - Chest pain, unspecified, R94.31 - Abnormal electrocardiogram [ECG] [EKG] Medications: New losartan 25 mg PO DAILY 90 days 90 tabs 1RF aspirin 81 mg PO DAILY 90 days 90 tabs 1RF Coding Level of Care Code Est Pt Prev Care 40-64y(34219) Diagnoses Annual physical exam Z00.00 Chest pressure R07.89 Pure hypercholesterolemia E78.00 Benign essential hypertension I10 Obstructive sleep apnea G47.33 Mild intermittent asthma without complication J45.20 Asthma severity: mild Asthma persistence: intermittent Asthma complication type: uncomplicated Vitamin D deficiency E55.9 Anxiety F41.9 Obesity (BMI 30-39.9) E66.9
== END 2023-01-24 16:13 | disposition home or self-care (01) ==
PROVIDERS: PCP Internal Medicine; Visit Provider Internal Medicine
DX: Z00.00 Encounter for general adult medical examination without abnormal findings (principal); R07.89 Other chest pain; E78.00 Pure hypercholesterolemia, unspecified; I10 Essential (primary) hypertension; G47.33 Obstructive sleep apnea (adult) (pediatric); J45.20 Mild intermittent asthma, uncomplicated; E55.9 Vitamin D deficiency, unspecified; F41.9 Anxiety disorder, unspecified
CPT/HCPCS: 99396

== ENCOUNTER 2023-01-24 16:23 | Outpatient (REF) | payer OTHER, SELFPAY ==
[2023-01-24 16:35] LABS: MANUAL DIFF FLAG NO
[2023-01-24 17:10] LABS: Basophils Absolute Auto 0.1 X10*3/uL (0.0-0.2); Basophils Percent Auto 0.8 % (0-2); Eosinophils Absolute Auto 0.2 X10*3/uL (0.0-0.4); Eosinophils Percent Auto 2.1 % (0-4); Hematocrit 45.9 % (42.0-52.0); Hemoglobin 15.8 g/dl (14.0-18.0); Imm Gran Abs Auto 0.03 X10*3/uL (0.00-0.03); Imm Gran Pct Auto 0.4 % (0.0-0.4); Lymphocytes Absolute Auto 3.3 X10*3/uL (1.2-4.9); Lymphocytes Percent Auto 39.1 % (20-40); Mean Corpuscular HGB Conc 34.4 g/dl (31.0-36.0); Mean Corpuscular Hemoglobin 31.5 pg (27.0-33.0); Mean Corpuscular Volume 91.4 fL (80.0-98.0); Mean Platelet Volume 10.2 fL (9.4-12.4); Monocytes Absolute Auto 0.7 X10*3/uL (0.1-1.2); Monocytes Percent Auto 7.7 % (2-11); Neutrophils Absolute Auto 4.2 x10*3/uL (2.0-8.3); Neutrophils Percent Auto 49.9 % (45-73); Platelet Count 334 X10*3/uL (160-400); Red Blood Count 5.02 X10*6/uL (4.60-5.80); Red Cell Distribution Width 12.4 % (11.0-16.0); White Blood Count 8.4 X10*3/uL (4.8-10.8)
[2023-01-24 17:14] LABS: Appearance Urine Clear; Color Urine Yellow; Glucose Urine UA Negative (Negative); Leukocyte Esterase Urine Negative (Negative); Nitrite Urine Negative (Negative); PH 5.5 (5.0-9.0); Specific Gravity - Urine >= 1.030 (1.005-1.025); Urine Blood Negative (Negative); Urine Ketones Negative (Negative); Urine Protein Negative (Neg-Trace)
[2023-01-24 17:45] LABS: Alanine Aminotransferase 20 U/L (0-40); Albumin Level 4.6 g/dL (3.5-5.0); Alkaline Phosphatase 68 U/L (39-117); Anion Gap 13 (12-20); Aspartate Amino Transferase 20 U/L (5-37); Bilirubin Total 0.9 mg/dL (0.0-1.0); Blood Urea Nitrogen 15 mg/dL (9-16); C Reactive Protein 0.36 mg/dL (< or = 0.50); Calcium 9.8 mg/dL (8.4-10.2); Carbon Dioxide 27 mmol/L (22-29); Chloride 106 mmol/L (96-108); Cholesterol 242 mg/dL (<200); Estimated Glomerular Filt Rate > 60; Glucose Fasting 89 mg/dL (60-99); HDL Cholesterol 60 mg/dL (>40); LDL Cholesterol Calculated 163 mg/dL (<100); Potassium 3.8 mmol/L (3.3-5.1); Sodium 142 mmol/L (135-145); Total Protein 7.7 g/dL (6.5-8.0); Triglycerides 99 mg/dL (<150)
[2023-01-24 17:47] LABS: Troponin-I High Sensitivity < 2.7 ng/L (<3.5-35.0)
[2023-01-24 17:58] LABS: Erythrocyte Sedimentation Rate 2 MM/HR (0-15)
[2023-01-24 18:00] LABS: TSH reflex Free T4 2.69 uIU/mL (0.32-4.0); Vitamin D 25-OH Total 15.3 ng/mL (>30)
== END 2023-01-24 16:24 | disposition home or self-care (01) ==
LOC: HO.LAB 16:23
PROVIDERS: PCP Internal Medicine; Visit Provider Internal Medicine
DX: I10 Essential (primary) hypertension (principal); M79.7 Fibromyalgia; R07.9 Chest pain, unspecified; R30.0 Dysuria; E55.9 Vitamin D deficiency, unspecified; E78.00 Pure hypercholesterolemia, unspecified
CPT/HCPCS: 36415; 80053; 80061; 81003; 82306; 84443; 84484; 85025; 85652; 86140

== ENCOUNTER → 2023-02-21 09:01 | Outpatient (REF) | payer OTHER, SELFPAY ==
--- NOTE | 2023-02-21 09:03 | CA_ITS ---
Transthoracic Echocardiogram Patient (Last, First, Middle): Baljeet Lopez O Gender: Male Date of : 1980 Age: 42 Procedure Date: 02/21/2023 Procedure Type: Transthoracic Echocardiogram Location: OP Height: 182.88 cm Weight: 129.28 kg BSA: 2.48 m2 Heart Rate: bpm BP: 110 / 78 mmHg Smalltalk Developer: TO Referring MD: Kofi Bright MD Javascript Software Engineer: Naman Blackwood MD Symptoms: R07.9 - Chest pain, unspecified Study Quality: Fair ECG Rhythm: Sinus Conclusions: - 1. Normal LV ejection fraction 60 65% with mild LVH with normal filling pattern 2. Normal cardiac valvular Doppler 3. Normal RV systolic pressure 4. Mildly dilated ascending aorta at 4.1 cm 5. No gross pericardial effusion Findings Procedure Information The patient declines contrast. Left Ventricle Normal left ventricular size and systolic function. There is mildly increased left ventricular wall thickness. The visually estimated ejection fraction is between 60-65%. Spectral Doppler is indicative of a normal filling pattern. Right Ventricle Normal right ventricular cavity size and systolic function. Atria The left atrium is normal in size. Interatrial shunt cannot be excluded. The right atrium is normal in size. Aortic Valve Normal aortic valve structure and function. There is no aortic valve stenosis. There is no aortic valve regurgitation. Mitral Valve Normal mitral valve structure and function. There is trace mitral valve regurgitation. There is no mitral valve stenosis. Pulmonic Valve The pulmonic valve is likely normal. There is trace pulmonic valve regurgitation. Tricuspid Valve Normal tricuspid valve structure. There is trace tricuspid valve regurgitation. The right ventricular systolic pressure is normal. The right ventricular systolic pressure is 18 mmHg. Normal right atrial pressure. There is no evidence of pulmonary hypertension. Great Vessels The pulmonary artery was not well visualized. There is mild dilatation of the ascending aorta measuring 4.10 cm. Venous The inferior vena cava is normal in size and collapses greater than 50% with inspiration. Pericardium/Pleural There is no evidence of pericardial effusion. Prior Study Comparison No prior study available for comparison. Measurements 2D Linear Measurements IVSd: 1.25 0.6-0.9/0.6-1.0 cm LVIDd: 5.10 3.9-5.3/4.2-5.9 cm LVIDd Index: 2.06 2.4-3.2/2.2-3.1 cm/m2 LVIDs: 3.09 2.0-3.6 cm LVPWd: 1.09 0.7-1.1 cm LA Diam: 3.90 2.7-3.8/3.0-4.0 cm LAIDs Index: 1.57 1.5-2.3 cm/m2 LV Mass: 290.35 67-162/88-224 g LV Mass Index: 117.08 43-95/49-115 g/m2 LVOT Diam: 2.40 3.0+(-)1.3 cm 2D Systolic Function EF 4C: 65.80 >55% Mitral Valve MV Pk E: 0.77 MV PK A: 0.67 MV Decel Time: 239.00 E/A: 1.10 E'Lateral: 11.10 E'Medial: 7.29 E/E' Med: 10.50 E/E' Lat: 6.90 PHT: 70.00 MVA PHT: 3.14 Decel Summers: 3.21 Aortic Valve AoV Pk Kevin: 1.26 AoV Mn Kevin: 0.86 AoV VTI: 0.27 AoV Pk Grad: 6.00 Aov Mn Grad: 3.00 RUTH Cont.VTI: 3.64 LVOT LVOT Pk Kevin: 1.12 LVOT Mn Kevin: 0.68 LVOT VTI: 0.22 LVOT Pk Grad: 5.00 LVOT Mn Grad: 2.00 LVOT Diam: 2.40 LVOT Area: 4.52 Diastolic Function MV Pk E: 0.77 MV Pk A: 0.67 E/A: 1.10 E'Medial: 7.29 E/E' Med: 10.50 E' Laterial: 11.10 E/E' Lat: 6.90 Right Ventricle TAPSE (mm): 25.90 TVS' Kevin: 12.20 Tricuspid Valve TR Pk Kevin: 1.95 TR Pk Grad: 15.00 RA Press: 3.00 RVSP: 18.00 Great Vessels Aorta Sinus of Valsalva: 4.45 2.0-3.5 cm Ao Asc: 4.10 2.1-3.4 cm Updated in Other Vendor System with Status of Final Naman Blackwood MD electronically signed on 02/21/2023 5:48:24 PM with status of Final
== END ==
LOC: HO.CARD 09:01
PROVIDERS: PCP Internal Medicine; Visit Provider Internal Medicine
DX: R07.9 Chest pain, unspecified (principal); I51.7 Cardiomegaly; R94.31 Abnormal electrocardiogram [ECG] [EKG]
CPT/HCPCS: 93306

== ENCOUNTER → 2023-02-21 09:03 | Outpatient (BNV) | payer OTHER, SELFPAY | PROVIDERS: PCP Internal Medicine; Visit Provider Internal Medicine Cardiovascular Disease | DX: R07.9 Chest pain, unspecified (principal) | CPT/HCPCS: 93306 ==

== ENCOUNTER 2023-04-03 12:53 | Outpatient (AMB) | payer OTHER, SELFPAY ==
--- NOTE | 2023-04-03 12:55 | A.OFFVIS_ITS ---
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 He is a 42-year-old male with recently diagnosed hypertension on losartan as was hyperlipidemia with last LDL of 163 done in January. Patient also has obstructive sleep apnea. He has been having are retrosternal chest discomfort which she describes as heartburn which is almost constantly present as per him but gets exacerbated and has symptoms that can last for an hour or so. He has some tingling down his left arm. This has gotten concern. He went to emergency room twice and both times he had negative EKGs and blood work. He was subsequently referred here for further workup. He just had a baby about 4 weeks ago and had taken 3 weeks off from work. He notice that his symptoms improved and he thinks this might be stress-induced related to the work. Over the last year or so he has gained weight. He is concerned about the same. However he said with exercises symptoms are not worse. And symptoms make it better. Denies any other associated symptoms. [facility] Medical History Obstructive sleep apnea Elevated blood pressure reading Excess skin of abdominal wall Paresthesia of left arm Anxiety Obesity (BMI 30-39.9) Pure hypercholesterolemia Vitamin D deficiency Asthma Surgical History History of hip surgery History of tonsillectomy Family History Father Healthy adult Mother No problems noted. Sister Healthy adult Social History Housing: House Alcohol intake: current Alcohol intake frequency: a few times a month Patient Tobacco Use Status: Never used Tobacco e-Cigarette/Vaping Use: Never Used Second Hand Smoke Exposure: No service: No Current occupational status: employed Cognitive needs: No Hearing needs: No Vision needs: Yes Review of Systems Const Denies chills, Denies daytime sleepiness, Denies fatigue, Denies fever(s), Denies frequent falls, Denies poor appetite, Denies snoring, Denies stops breathing during sleep, Denies weakness, Denies weight gain and Denies weight loss Eyes Denies loss of vision ENT Denies dizziness and Denies hearing loss Card Denies chest pain, Denies claudication, Denies leg edema, Denies lighthea dedness, Denies palpitations, Denies dyspnea, Denies dyspnea on exertion and Denies orthopnea Resp Denies cough, Denies excessive phlegm production, Denies dyspnea, Denies dyspnea on exertion, Denies snoring and Denies wheezing GI Denies abdominal pain, Denies hematochezia, Denies change in bowel habits, Denies nausea and Denies vomiting Denies dysuria and Denies urinary frequency Musc Denies arthralgias, Denies muscle weakness, Denies numbness and Denies other (frequent falls) Skin/Breast Denies nail changes and Denies rash Neuro Denies Abnormal speech present, Denies dizziness, Denies frequent falls, Denies loss of vision, Denies memory loss, Denies numbness and Denies weakness Psych Denies depression and Denies memory loss Endo Denies fatigue and Denies palpitations Wes/Lymph Reports easy bruising and Reports other (anemia) Aller/Immun Denies wheezing Physical Exam Vital Signs: Last Vital Signs Pulse 74 04/03/23 12:56 BP 126/80 04/03/23 12:56 BMI result Body Mass Index 39.5 Const General: cooperative, comfortable, no acute distress, well developed, alert, awake and Physically active Nutritional Appearance: well nourished and obese Orientation/consciousness: patient oriented x3 HEENT Head: Yes normocephalic and Yes atraumatic Neck Neck: Yes trachea midline, Yes supple and Yes no JVD Resp Effort & Inspection: normal respiratory effort Auscultation: clear to auscultation bilaterally Cardio Jugular venous distension: no JVD Palpation: normal PMI Rate: regular rate Rhythm: regular rhythm Heart sounds: S1 normal heart sound present, S2 normal heart sound present, no click, no gallops, no murmurs and no rubs Bruits: no carotid bruits GI Inspection: Yes obesity Auscultation: normal bowel sounds Skin General skin exam: no rashes or lesions noted Neuro General: patient oriented x3 and no focal motor deficits Speech: No Abnormal speech present Extrem General: Yes no clubbing, cyanosis or edema Office Procedures EKG Details: EKG shows normal sinus rhythm with leftward axis with minimal voltage criteria for LVH [id number], Complete Assessment & Plan Assessment & Plan (1) Chest pain: Code(s): R07.9 - Chest pain, unspecified Plan: Patient with chest pain syndrome mostly induced by stress. Coronary artery disease is likely but given the nature of his chest pain is fairly atypical for myocardial ischemia. He has baseline EKG which appears normal. He has good functional status. Will suggest a treadmill stress test to evaluate for myocardial ischemia. If this is negative, further workup for acid reflux should be pursued. Would consider starting empirically on omeprazole 20 mg daily to see if this improves his symptoms. We discussed about stress mitigation strategies. He understands this well. P.r.n. antacid use can also be considered. (2) Pure hypercholesterolemia: Code(s): E78.00 - Pure hypercholesterolemia, unspecified Plan: Hyperlipidemia is not meeting the criteria for treatment at this point time. Although he has multiple risk factors including hypertension, obesity. Eliazar mmend aggressive lifestyle modification weight loss program regular physical activity. If his LDL remains elevated can consider target for treatment for statin therapy to target goal LDL less than 100 mg/dL. Blood pressure is currently well optimized advised to monitor blood pressure at home maintain a log. Goal blood pressure less than 130/84. Low-salt diet was discussed. Continue CPAP therapy. Follow up in the clinic if need be. Thank you for allowing me to partake in her care Orders: Orders CA stress test 2 Weeks R07.9 - Chest pain, unspecified Coding Level of Care Code New Pt Level 4 (04620) Diagnoses Chest pain R07.9 Pure hypercholesterolemia E78.00 CPT Codes EKG - CPT: 47487-[id number], Complete ([id number])
[2023-04-03 12:56] VITALS: BP 126/80; PULSE 74; BMI 39.5
== END 2023-04-03 13:32 | disposition home or self-care (01) ==
PROVIDERS: PCP Internal Medicine; Visit Provider Internal Medicine Cardiovascular Disease
DX: R07.9 Chest pain, unspecified (principal); E78.00 Pure hypercholesterolemia, unspecified
CPT/HCPCS: 93010; 99204

== ENCOUNTER → 2023-04-03 12:53 | Outpatient (BNVA) | payer OTHER, SELFPAY | PROVIDERS: PCP Internal Medicine; Visit Provider Internal Medicine Cardiovascular Disease | DX: R07.9 Chest pain, unspecified (principal); E78.00 Pure hypercholesterolemia, unspecified | CPT/HCPCS: 93005 ==

== ENCOUNTER → 2023-04-17 08:29 | Outpatient (REF) | payer OTHER, SELFPAY | LOC: HO.CARD 08:29 | PROVIDERS: PCP Internal Medicine; Visit Provider Internal Medicine Cardiovascular Disease | DX: R07.9 Chest pain, unspecified (principal) | CPT/HCPCS: 93017 ==

== ENCOUNTER → 2023-04-17 08:31 | Outpatient (BNV) | payer OTHER, SELFPAY | PROVIDERS: PCP Internal Medicine; Visit Provider Nurse Practitioner | DX: R07.9 Chest pain, unspecified (principal) | CPT/HCPCS: 93016; 93018 ==

== ENCOUNTER 2023-07-18 14:39 | Outpatient (AMB) | payer OTHER, SELFPAY ==
--- NOTE | 2023-07-18 14:52 | MHC.OFFVIS ---
Intake Vital Signs 07/18/23 14:55 Height 6 ft Weight 300 lb 2 oz BMI 40.7 BP 130/80 Blood Pressure Location Lt brachial Position Sitting Pulse 95 Pulse Source Pulse Oximeter Pulse Oximetry (%) 96 Oxygen Delivery Method Room Air Intake Visit Reasons: 1yr Sleep apnea F/U - CONF w/address Intake Note: Patient presents for 1 year F/U. Allergies No Known Allergies Allergy (Verified 07/18/23 14:55) HPI HPI Comments History of Present Illness Details 42 y/o male patient presents for follow up of RADHA on CPAP. The compliance and therapy response (04/17/23-07/15/23) reviewed with the patient. He is on APAP [id number]. Usage days 84% and average usage hours 6 hours. The max pressure is 14.5 and the residual AHI was 0.4. Pt's sleep study (02/22/21) result was significant for mild to moderate degree of sleep apena. The AHI was 15/hr and oxygen denise was 86%. Pt reports sleep well with CPAP and having refreshing sleep. He feels more energy during the day. [facility] Medical History Obstructive sleep apnea Elevated blood pressure reading Excess skin of abdominal wall Paresthesia of left arm Anxiety Obesity (BMI 30-39.9) Pure hypercholesterolemia Vitamin D deficiency Asthma Surgical History History of hip surgery History of tonsillectomy Family History Father Healthy adult Mother No problems noted. Sister Healthy adult Social History Housing: House Alcohol intake: current Alcohol intake frequency: a few times a month Patient Tobacco Use Status: Never used Tobacco e-Cigarette/Vaping Use: Never Used Second Hand Smoke Exposure: No service: No Current occupational status: employed Cognitive needs: No Hearing needs: No Vision needs: Yes Review of Systems Const All systems reviewed & are unremarkable except as noted in HPI and below Physical Exam Vital Signs: Last Vital Signs Pulse 95 07/18/23 14:55 BP 130/80 07/18/23 14:55 Pulse Ox 96 07/18/23 14:55 Oxygen Delivery Method Room Air 07/18/23 14:55 BMI result Body Mass Index 40.7 Const General: no acute distress Orientation/consciousness: patient oriented x3 HEENT Other: Mallampati grade 3 Resp Effort & Inspection: able to speak in complete sentences Auscultation: clear to auscultation bilaterally Cardio Rate: regular rate Rhythm: regular rhythm Neuro General: patient oriented x3 Psych Mental Status: mental status grossly normal Speech and movement: Clear speech present Attitude: cooperative Assessment & Plan Assessment & Plan (1) Obstructive sleep apnea: Comment: Mild to moderate degree of sleep apnea. The AHI was 15/hr and oxygen denise was 86%. Code(s): G47.33 - Obstructive sleep apnea (adult) (pediatric) Plan Advised patient to continue to use APAP [id number] as patient experiences good clinical effects. Stressed compliance, use CPAP nightly and more than 4 hours. Coding Level of Care Code Est Pt Level 3 (43577) Diagnoses Obstructive sleep apnea G47.33
[2023-07-18 14:55] VITALS: BP 130/80; PULSE 95; O2SAT 96; BMI 40.7
== END 2023-07-18 15:05 | disposition home or self-care (01) ==
PROVIDERS: PCP Internal Medicine; Visit Provider Nurse Practitioner Family
DX: G47.33 Obstructive sleep apnea (adult) (pediatric) (principal)
CPT/HCPCS: 99213

== ENCOUNTER → 2023-07-18 14:39 | Outpatient (BNVA) | payer OTHER, SELFPAY | PROVIDERS: Visit Provider Nurse Practitioner Family ==

== ENCOUNTER 2023-11-28 10:32 | Outpatient (AMB) | payer OTHER, SELFPAY ==
--- NOTE | 2023-11-28 10:33 | MHC.OFFWIV ---
Intake Vital Signs 11/28/23 10:35 Height 6 ft Weight 302 lb BMI 41.0 BP 120/90 H Blood Pressure Location Rt brachial Position Sitting Pulse 80 Pulse Source Pulse Oximeter Temp 98.1 F Temp Source Oral Pulse Oximetry (%) 98 Oxygen Delivery Method Room Air Intake Visit Reasons: EP- Sinuses are all stuffy, feels pressure in head Intake Note: Patient here sinus congestion and slight cough since yesterday Patient Tobacco Use Status: Never used Tobacco Allergies No Known Allergies Allergy (Verified 11/28/23 10:36) Do you need a note to return to daycare/school/sports/work: No HPI HPI Comments History of Present Illness Details 43 y/o male patient who presents to the walk in clinic with c/o URI symptoms since yesterday. Reports coughing, body aches and subjective fevers. He was in [place] with his family for 1 week, and was around alot of people. [facility] Medical History Obstructive sleep apnea Elevated blood pressure reading Excess skin of abdominal wall Paresthesia of left arm Anxiety Obesity (BMI 30-39.9) Pure hypercholesterolemia Vitamin D deficiency Asthma Surgical History History of hip surgery History of tonsillectomy Family History Father Healthy adult Mother No problems noted. Sister Healthy adult Social History Housing: House Alcohol intake: current Alcohol intake frequency: a few times a month Patient Tobacco Use Status: Never used Tobacco e-Cigarette/Vaping Use: Never Used Second Hand Smoke Exposure: No service: No Current occupational status: employed Cognitive needs: No Hearing needs: No Vision needs: Yes Review of Systems Const All systems reviewed & are unremarkable except as noted in HPI and below Physical Exam Vital Signs: Last Vital Signs Temp 98.1 F 11/28/23 10:35 Pulse 80 11/28/23 10:35 BP 120/90 H 11/28/23 10:35 Pulse Ox 98 11/28/23 10:35 Oxygen Delivery Method Room Air 11/28/23 10:35 BMI result Body Mass Index 41.0 Const General: comfortable and no acute distress Nutritional Appearance: obese Orientation/consciousness: patient oriented x3 HEENT Head: Yes normocephalic Ears: external ears normal and TM abnormal bulging bilateral and with fluid behind the TM bilateral General nose exam: Abnormal mucous membranes and turbinates present boggy and erythematous and Nasal discharge present mucoid Resp Effort & Inspection: normal respiratory effort and able to speak in complete sentences Auscultation: clear to auscultation bilaterally, no crackles, no rales, no rhonchi and no wheezes Cardio Heart sounds: S1 normal heart sound present and S2 normal heart sound present Neuro General: patient oriented x3 Assessment & Plan Assessment & Plan (1) Upper respiratory tract infection: Code(s): J06.9 - Acute upper respiratory infection, unspecified Qualifiers: URI type: unspecified viral URI Qualified Code(s): J06.9 - Acute upper respiratory infection, unspecified Plan: SARs ordered Rest and hydrate well Acetaminophen for pain relief Plan SARs ordered Rest and hydrate well Acetaminophen for pain relief Orders: Orders SARS-CoV2/FLU/RSV Today J06.9 - Acute upper respiratory infection, unspecified Medications: New pseudoephedrine HCl ER (Sudafed 24 Hour) 240 mg PO DAILY PRN 60 tabs 0RF nasal congestion J06.9 - Acute upper respiratory infection, unspecified oxymetazoline 0.05% (Afrin (oxymetazoline)) 2 sprays intranasal Q12H 3 days PRN 15 mL 0RF nasal congestion J06.9 - Acute upper respiratory infection, unspecified acetaminophen 1,000 mg (2 x 500 mg) PO Q6H PRN 30 caps 0RF fever J06.9 - Acute upper respiratory infection, unspecified Coding Level of Care Code Est Pt Level 3 (74719) Diagnoses Viral upper respiratory tract infection J06.9 URI type: unspecified viral URI Time Spent (min) 15
[2023-11-28 10:35] VITALS: BP 120/90; PULSE 80; TEMP 36.7; O2SAT 98; BMI 41.0
== END 2023-11-28 11:10 | disposition home or self-care (01) ==
PROVIDERS: PCP Internal Medicine; Visit Provider Nurse Practitioner Family
DX: J06.9 Acute upper respiratory infection, unspecified (principal)
CPT/HCPCS: 99213

== ENCOUNTER 2023-11-28 11:04 | Outpatient (REF) | payer OTHER, SELFPAY ==
[2023-11-28 14:07] LABS: Influenza A PCR NEGATIVE (Negative); Influenza B PCR NEGATIVE (Negative); Resp Syncy Virus RNA Qual PCR NEGATIVE (Negative); SARS COV2 PCR INHOUSE POSITIVE (Negative)
== END 2023-11-28 11:05 | disposition home or self-care (01) ==
LOC: HO.LAB 11:04
PROVIDERS: Visit Provider Nurse Practitioner Family
DX: J06.9 Acute upper respiratory infection, unspecified (principal)
CPT/HCPCS: 0241U

== ENCOUNTER 2024-01-19 08:41 | Outpatient (AMB) | payer OTHER, SELFPAY ==
--- NOTE | 2024-01-19 09:19 | MHC.OFFWIV ---
Intake Vital Signs 01/19/24 09:20 Height 6 ft Weight 304 lb BMI 41.2 BP 120/78 Blood Pressure Location Rt brachial Position Sitting Pulse 91 Pulse Source Pulse Oximeter Pulse Oximetry (%) 97 Oxygen Delivery Method Room Air Intake Visit Reasons: EP ? woke up w/right eye swollen & some discharge Intake Note: Patient here for swelling in right eye, woke up with discharge this morning. Patient Tobacco Use Status: Never used Tobacco Allergies No Known Allergies Allergy (Verified 01/19/24 09:21) Do you need a note to return to daycare/school/sports/work: No HPI EP ? woke up w/right eye swollen & some discharge HPI Details This note is constructed using voice recognition software. While every effort has been made to ensure accuracy, clinical safety specialist errors may have been included. The patient is a 43 year old male who presents to the clinic today with right eye swelling with clear discharge since yesterday. He denies fever, chills, cough, shortness of breath, or any other URI symptoms. He denies difficulty vision and any pain with moving his eye. He has not tried anything to make it better, nothing seems to make it worse COUNTS INCLUDE 234 BEDS AT THE [facility] Medical History Obstructive sleep apnea Elevated blood pressure reading Excess skin of abdominal wall Paresthesia of left arm Anxiety Obesity (BMI 30-39.9) Pure hypercholesterolemia Vitamin D deficiency Asthma Surgical History History of hip surgery History of tonsillectomy Family History Father Healthy adult Mother No problems noted. Sister Healthy adult Social History Housing: House Alcohol intake: current Alcohol intake frequency: a few times a month Patient Tobacco Use Status: Never used Tobacco e-Cigarette/Vaping Use: Never Used Second Hand Smoke Exposure: No service: No Current occupational status: employed Cognitive needs: No Hearing needs: No Vision needs: Yes Review of Systems Const All systems reviewed & are unremarkable except as noted in HPI and below Physical Exam Vital Signs: Last Vital Signs Pulse 91 01/19/24 09:20 BP 120/78 01/19/24 09:20 Pulse Ox 97 01/19/24 09:20 Oxygen Delivery Method Room Air 01/19/24 09:20 BMI result Body Mass Index 41.2 Const General: cooperative, healthy appearing, comfortable, no acute distress and well developed Orientation/consciousness: patient oriented x3 Limitations: no limitations Eyes Alignment and Position: alignment normal Eyelids: Yes eyelid abnormality (Hordeolum to right upper lid with slight edema) Conjunctivae: conjunctivae normal Sclerae: sclerae normal Corneas: corneas normal Pupils: Equal, round and reactive pupils present EOM: EOMs intact bilaterally Direct Ophthalmoscopy: normal light reflex and no photophobia Resp Effort & Inspection: normal respiratory effort and able to speak in complete sentences Neuro General: patient oriented x3 Cranial nerves: Yes Equal, round and reactive pupils present Assessment & Plan Assessment & Plan (1) Hordeolum: Code(s): H00.019 - Hordeolum externum unspecified eye, unspecified eyelid Qualifiers: Hordeolum type: externum Laterality: right Eyelid: upper Qualified Code(s): H00.011 - Hordeolum externum right upper eyelid Plan: Advised warm compresses minimum 4 times per day. Offered prescription of erythromycin for symptomatic management, however patient has declined at this time. Advised follow up as needed with worsening or failure to resolve, or any problems with vision that should develop. Plan See above for full details and plan. Coding Level of Care Code Est Pt Level 3 (59427) Diagnoses Hordeolum externum of right upper eyelid H00.011 Hordeolum type: externum Laterality: right Eyelid: upper
[2024-01-19 09:20] VITALS: BP 120/78; PULSE 91; O2SAT 97; BMI 41.2
== END 2024-01-19 10:15 | disposition home or self-care (01) ==
PROVIDERS: PCP Internal Medicine; Visit Provider Registered Nurse
DX: H00.011 Hordeolum externum right upper eyelid (principal)

== ENCOUNTER → 2024-01-19 08:41 | Outpatient (BNVA) | payer OTHER, SELFPAY | PROVIDERS: PCP Internal Medicine; Visit Provider Registered Nurse ==

== ENCOUNTER 2024-03-25 08:44 | Emergency (ER) | payer OTHER, SELFPAY ==
[2024-03-25 09:38] VITALS: BP 146/92; PULSE 68; RESP 18; TEMP 36.3; O2SAT 97; BMI 40.7
--- NOTE | 2024-03-25 09:43 | ED.BACK ---
HPI - Back Pain/Injury General Chief Complaint: Back Pain/Injury Stated Complaint: back pain Source: patient Limitations: no limitations History of Present Illness ED Provider: Megan robledo PA-C HPI Narrative: 43-year-old male with a history of hypertension, sleep apnea, obesity, presents with right-sided lumbar back pain x2 weeks. Patient states he was moving furniture prior to the onset of his discomfort. The pain is nonradiating, worse with transitioning from sitting to standing. Denies weakness of lower extremities, paresthesia, bowel incontinence or urinary retention. Related Data Previous Rx's ?Medication ?Instructions ?Recorded aspirin 81 mg chewable tablet 81 mg PO DAILY 90 days #90 tabs 07/18/23 losartan 25 mg tablet 25 mg PO DAILY 90 days #90 tabs 07/21/23 acetaminophen 500 mg capsule 1,000 mg (2 x 500 mg) PO Q6H PRN 11/28/23 fever #30 caps oxymetazoline 0.05 % nasal spray 2 spray intranasal Q12H PRN nasal 11/28/23 (Afrin (oxymetazoline)) congestion 3 days #15 mL montelukast 10 mg tablet 10 mg PO BEDTIME #90 tabs 02/23/24 albuterol sulfate 90 mcg/actuation 2 puff PO Q6H PRN for wheezing 03/15/24 aerosol inhaler #8.5 ea meloxicam 15 mg tablet 15 mg PO DAILY #7 tabs 03/25/24 methocarbamol 750 mg tablet 1,500 mg (2 x 750 mg) PO TID PRN 03/25/24 pain #20 tabs Allergies Allergy/AdvReac Type Severity Reaction Status Date / Time No Known Allergies Allergy Verified 03/25/24 09:42 Review of Systems Review of Systems: Yes all other systems are reviewed and are negative Constitutional: Constitutional: Denies fatigue and Denies fever(s) Cardiovascular: Cardiovascular: Denies chest pain Gastrointestinal: Gastrointestinal: Denies abdominal pain Musculoskeletal: Musculoskeletal: Denies muscle weakness, Denies numbness and Denies tingling Neurologic: Denies numbness and Denies tingling Endocrine: Endocrine: Denies fatigue [facility] Past Medical History Attestation statement: The following information was validated with the patient. Medical History Obstructive sleep apnea Elevated blood pressure reading Excess skin of abdominal wall Paresthesia of left arm Anxiety Obesity (BMI 30-39.9) Pure hypercholesterolemia Vitamin D deficiency Asthma Surgical History History of hip surgery History of tonsillectomy Family History Family History Father Healthy adult Mother No problems noted. Sister Healthy adult Social History Social History Housing: House Alcohol intake: current Alcohol intake frequency: a few times a month Patient Tobacco Use Status: Never used Tobacco e-Cigarette/Vaping Use: Never Used Second Hand Smoke Exposure: No service: No Current occupational status: employed Cognitive needs: No Hearing needs: No Vision needs: Yes Physical Exam Vital Signs: Vital Signs: Last Vital Signs Temp 97.3 F 03/25/24 09:38 Pulse 68 03/25/24 09:38 Resp 18 03/25/24 09:38 BP 146/92 H 03/25/24 09:38 Pulse Ox 97 03/25/24 09:38 O2 Del Method Room Air 03/25/24 09:38 BMI result Body Mass Index 40.7 Const: Other: Alert overall well-appearing Orientation/consciousness: patient oriented x3 Resp: Other: Nonlabored respirations Cardio: Other: Normal peripheral perfusion Skin: Other: Warm dry no rash Neuro: General: patient oriented x3, gait normal, no focal motor deficits and CN's II-XI intact bilaterally Extrem: Other: Strength 5/5 bilateral lower extremities with resistance Psych: Other: Calm cooperative Medical Decision Making Medical Decision Making MDM Narrative: 43-year-old male with a history of hypertension, sleep apnea, obesity, presents with right-sided lumbar back pain x2 weeks. Patient states he was moving furniture prior to the onset of his discomfort. The pain is nonradiating, worse with transitioning from sitting to standing. Denies weakness of lower extremities, paresthesia, bowel incontinence or urinary retention. Problem: Obesity History: Per patient I have considered the following differential diagnoses: Lumbar strain, sciatica, radiculopathy, cauda equina Plan: Patient has simple lumbar strain, he has a mechanism of injury that preceded the discomfort. He has no red flag signs or symptoms concerning for cord compression, also no symptoms of sciatica/radiculopathy. We will treat with a muscle relaxant and an anti-inflammatory. No indication for labs or imaging. Discharge Plan Discharge Clinical Impression: Lumbar strain Patient Disposition: Home, Self-Care Instructions: Low Back Strain (ED), Lower Back Exercises (ED) Additional Instructions: You are being treated for lumbar strain. See home care instructions. Use the methocarbamol, this is a muscle relaxant, as needed for pain. To note you can not drive or operate machinery while taking this medication as it can cause drowsiness. Use the meloxicam as directed, this is an anti-inflammatory, take it with food. You need to follow up with your primary care provider if your symptoms persist, you may require physical therapy. Prescriptions: New methocarbamol 750 mg tablet 1,500 mg PO TID PRN (Reason: pain) Qty: 20 0RF meloxicam 15 mg tablet 15 mg PO DAILY Qty: 7 0RF No Action aspirin 81 mg tablet,chewable 81 mg PO DAILY 90 Days Qty: 90 1RF losartan 25 mg tablet 25 mg PO DAILY 90 Days Qty: 90 1RF montelukast 10 mg tablet 10 mg PO BEDTIME Qty: 90 1RF albuterol sulfate 90 mcg/actuation HFA aerosol inhaler 2 puff PO Q6H PRN (Reason: for wheezing) Qty: 8.5 1RF oxymetazoline [Afrin (oxymetazoline)] 0.05 % spray,non-aerosol 2 spray intranasal Q12H PRN (Reason: nasal congestion) 3 Days Qty: 15 0RF acetaminophen 500 mg capsule 1,000 mg PO Q6H PRN (Reason: fever) Qty: 30 0RF Stand Alone Forms: Work/School Release Print Language: Frisian
[2024-03-25 09:55] VITALS: BP 146/92; PULSE 68; RESP 18; TEMP 36.3; O2SAT 97
== END 2024-03-25 09:56 | disposition home or self-care (01) ==
PROVIDERS: Emergency Provider Student in an Organized Health Care Education/Training Program; PCP Internal Medicine
DX: S39.012A Strain of muscle, fascia and tendon of lower back, initial encounter (principal); X50.0XXA Overexertion from strenuous movement or load, initial encounter; Y93.E9 Activity, other interior property and clothing maintenance; Y92.019 Unspecified place in single-family (private) house as the place of occurrence of the external cause; Y99.9 Unspecified external cause status
CPT/HCPCS: 99282; 99283

== ENCOUNTER 2024-04-28 12:59 | Outpatient (REF) | payer OTHER, SELFPAY ==
--- NOTE | ~2024-04-28 | XR_ITS ---
CLINICAL HISTORY: S92.351A - Displaced fracture of fifth metatarsal bone, left foot, init... 3 view left foot Comparison: None Findings: Fracture of the proximal 5th metatarsal. No dislocations. No significant loss of joint space, osteophytes, or erosions. No ankle effusion. No radiopaque foreign body. IMPRESSION: 1. Fifth metatarsal fracture. This document has been electronically signed by: Ronald Blum MD on 04/30/2024 08:03:40
== END 2024-04-28 13:00 | disposition home or self-care (01) ==
LOC: HO.HOSX 12:59
DX: S99.192A Other physeal fracture of left metatarsal, initial encounter for closed fracture (principal)
CPT/HCPCS: 28470; 73630

== ENCOUNTER 2024-04-28 14:33 | Outpatient (AMB) | payer OTHER, SELFPAY ==
--- NOTE | 2024-04-28 14:57 | A.OFFVIS_ITS ---
Vital Signs 04/28/24 15:02 Height 6 ft Weight 300 lb BMI 40.7 Handedness Left Intake Visit Reasons: FC - left 5th metatarsal fx, DOI 04/11/24 Intake Note: Baljeet is a 43 year old male who presents today for a evaluation of his left foot injury, DOI 04/11/24. Patient reports he was getting ready for bed. When he was shutting the [employer] tree lights he stumbled and tripped into his slides and fell. He mentions he is feeling relief with the boot. Patient was seen at [facility] and they gave him a tall walking boot and crutches. Denies numbness and tingling. Allergies No Known Allergies Allergy (Verified 05/05/24 13:05) HPI HPI FC - left 5th metatarsal fx, DOI 04/11/24: Details: Baljeet is a 43 year old male who presents today for a evaluation of his left foot injury, DOI 04/11/24. Patient reports he was getting ready for bed. When he was shutting the [email or web address] tree lights he stumbled and tripped into his slides and fell. He mentions he is feeling relief with the boot. Patient was seen at [facility] and they gave him a tall walking boot and crutches. Denies numbness and tingling. [facility] Medical History Obstructive sleep apnea Elevated blood pressure reading Excess skin of abdominal wall Paresthesia of left arm Anxiety Obesity (BMI 30-39.9) Pure hypercholesterolemia Vitamin D deficiency Asthma Surgical History History of hip surgery History of tonsillectomy Family History Father Healthy adult Mother No problems noted. 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 Cognitive needs: No Hearing needs: No Vision needs: Yes Review of Systems Const All systems reviewed & are unremarkable except as noted in HPI and below Physical Exam Vital Signs: BMI result Body Mass Index 40.7 Extrem Other: Patient's left foot swollen and ecchymotic to inspection No erythema No lacerations, abrasions, open areas No evidence of infection Patient reports tenderness to palpation of the lateral aspect of the left foot, particularly over the base of the 5th metatarsal No tenderness to palpation of the medial foot, lateral or medial malleoli, or elsewhere on the left foot Patient is able to flex and extend the digits of the left foot without difficulty Distal sensation intact Capillary refill brisk Office Procedures AMB Fracture Care Fracture Billing Code: Fracture Billing Code Casting/Splints 36711-[id number] Leg Cast Application Procedure code (CPT) selection complete Results Reviewed Results Reviewed: X-rays obtained in the office today and independently reviewed by me, Jose Roberto Anthony PA-C, demonstrate nondisplaced fracture of the base of the 5th metatarsal of the right foot consistent with Jacobs fracture. Assessment & Plan Assessment & Plan (1) Jacobs fracture: Code(s): S99.199A - Other physeal fracture of unspecified metatarsal, initial encounter for closed fracture Category: Medical Plan 1. Jacobs fracture of the left foot Date of injury 04/11/2024 Patient is educated about this injury Patient is educated about the typical treatment course At this time, patient was told that he needs to be completely nonweightbearing on the left foot, and is placed into a short-leg cast Patient is also provided with crutches at this time, as he did not have them coming into the office Patient is educated on proper cast care and precautions Patient will be out of work until follow-up Patient will follow-up in 3 weeks with repeat x-rays, sooner with any acute concerns Coding Level of Care Code New Pt Level 3 (34044) Diagnoses Jacobs fracture S99.199A CPT Codes Fracture Care - Fracture Billing Code: Fracture Billing Code ([id number]) Casting - CPT: 69578-[id number] Leg Cast Application ([id number])
[2024-04-28 15:02] VITALS: BMI 40.7
== END 2024-04-28 15:46 | disposition home or self-care (01) ==
PROVIDERS: PCP Internal Medicine
DX: S92.355A Nondisplaced fracture of fifth metatarsal bone, left foot, initial encounter for closed fracture (principal)
CPT/HCPCS: 28470; 99203

== ENCOUNTER → 2024-04-28 14:37 | Outpatient (BNV) | payer OTHER, SELFPAY | PROVIDERS: Visit Provider Specialist | DX: S92.352A Displaced fracture of fifth metatarsal bone, left foot, initial encounter for closed fracture (principal) | CPT/HCPCS: 73630 ==

== ENCOUNTER 2024-05-05 12:45 | Emergency (ER) | payer OTHER, SELFPAY ==
--- NOTE | 2024-05-05 12:46 | ECG_ITS ---
Test Reason : CHEST PAIN Blood Pressure : */* mmHG Vent. Rate : 71 BPM Atrial Rate : 71 BPM P-R Int : 178 ms QRS Dur : 102 ms QT Int : 388 ms P-R-T Axes : 22 -43 18 degrees QTcB Int : 421 ms Normal sinus rhythm Possible Left atrial enlargement Left axis deviation Incomplete right bundle branch block Abnormal ECG When compared with ECG of 08-Jan-2023 17:58, No significant change was found Referred By: Alexandra Orellana Electronically Signed By: MIRIAM CHIU MD
[2024-05-05 13:04] VITALS: BP 116/80; PULSE 77; RESP 18; TEMP 36.6; O2SAT 96; BMI 39.3
--- NOTE | 2024-05-05 13:04 | ED_ITS ---
HPI - General Adult General Chief complaint: Chest Pain Stated complaint: Chest Pain X 2 Days Time Seen by Provider: 05/05/24 17:07 Source: patient Mode of arrival: ambulatory Limitations: no limitations History of Present Illness ED Provider: Dr. Martin Sandra HPI narrative: 43-year-old male with a history of RADHA, hypertension, paresthesias, anxiety, obesity, hypercholesterolemia, asthma who presents emergency department for evaluation of constant, left anterior chest pain x2 days. Patient states that the pain came on gradually 2 days prior and has been constant since onset but waxing and waning in intensity. Describes the pain as a tingling/burning/sharp pain which is 6/10 at its worst. The pain is worse if he moves his head or neck. He states that he was had similar pain in the past and has been treated with anti-inflammatory medications and anti spasm medications. The patient states he had a twisting injury to his left foot in March of 2024 and was diagnosed with a 5th metatarsal fracture and placed in a cast proximally 1 week prior. He denies any pain or swelling in his leg. He denied shortness of breath, nausea, vomiting, pain radiating to his neck, jaw back or arms. Related Data Previous Rx's ?Medication ?Instructions ?Recorded aspirin 81 mg chewable tablet 81 mg PO DAILY 90 days #90 tabs 07/18/23 losartan 25 mg tablet 25 mg PO DAILY 90 days #90 tabs 07/21/23 acetaminophen 500 mg capsule 1,000 mg (2 x 500 mg) PO Q6H PRN 11/28/23 fever #30 caps oxymetazoline 0.05 % nasal spray 2 spray intranasal Q12H PRN nasal 11/28/23 (Afrin (oxymetazoline)) congestion 3 days #15 mL montelukast 10 mg tablet 10 mg PO BEDTIME #90 tabs 02/23/24 albuterol sulfate 90 mcg/actuation 2 puff PO Q6H PRN for wheezing 03/15/24 aerosol inhaler #8.5 ea meloxicam 15 mg tablet 15 mg PO DAILY #7 tabs 03/25/24 methocarbamol 750 mg tablet 1,500 mg (2 x 750 mg) PO TID PRN 03/25/24 pain #20 tabs cyclobenzaprine 10 mg tablet 10 mg PO TID PRN muscle pain or 05/05/24 spasm #20 tabs naproxen sodium 550 mg tablet 550 mg PO BID PRN pain #20 tabs 05/05/24 (Anaprox DS) Allergies Allergy/AdvReac Type Severity Reaction Status Date / Time No Known Allergies Allergy Verified 05/05/24 13:05 Review of Systems 2 Review of Systems: Yes all other systems are reviewed and are negative [facility] Past Medical History [facility] Narrative: Social history: He denies tobacco, alcohol and drug use. Medical History Obstructive sleep apnea Elevated blood pressure reading Excess skin of abdominal wall Paresthesia of left arm Anxiety Obesity (BMI 30-39.9) Pure hypercholesterolemia Vitamin D deficiency Asthma Surgical History History of hip surgery History of tonsillectomy Family History Family History Father Healthy adult Mother No problems noted. 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 Elevated BMI of 39.3 kg per m2. Head: Normocephalic, atraumatic EENT: PERRL, Lids normal, sclera normal, conjunctiva normal, nose normal , ears normal, throat without erythema or exudates Neck: Supple, no adenopathy Lung: breath sounds symmetric, no wheezing, rales or rhonchi Chest: symmetric movement, tenderness with palpation of the left anterior chest along the costochondral joints Heart: regular rate and rhythm, normal S1, S2 no murmurs or rubs Abdomen: soft, non-tender, nondistended, normal bowel sounds Back: no vertebral tenderness, no CVAT Extremities: Left foot and ankle he was in a short fiberglass cast, patient has no significant tenderness palpation of his thighs bilaterally and he was states that his thighs are symmetric with no swelling Neuro: Awake, alert, oriented, normal speech, cranial nerves intact, moves all extremities symmetrically Psych: Pleasant, cooperative Course Course Course Narrative: This is a rapid medical exam performed by Aileen Orellana NP: Additional HPI, ROS, PE not included below will be deferred to primary provider. Patient is a 43-year-old male with history of HTN, RADHA, anxiety, asthma presenting with complaint of chest pain for the past few days. Left foot in cast for 5th metatarsal fx. Denies any calf pain or swelling. Medical Decision Making Medical Decision Making [facility] Narrative: 43-year-old male with a history of RADHA, hypertension, paresthesias, anxiety, obesity, hypercholesterolemia, asthma who presents emergency department for evaluation of gradual onset, constant, waxing and waning left anterior chest pain x2 days. Pain is worse with movement of his chest head and neck, with no shortness of breath, dyspnea on exertion. The patient does have a cast on his left foot and ankle secondary to a 5th metatarsal fracture x1 week, but he was had no pain or swelling of his thigh. Vital signs were normal. Physical examination did reveal tenderness palpation of the left anterior chest and left costochondral joints. Differential diagnosis: ?Includes but is not limited to myocardial infarction, myocardial ischemia, pulmonary embolism, costochondritis, musculoskeletal pain, anemia, electrolyte abnormalities Course: My independent interpretation patient's laboratory evaluation as follows: CBC was normal. PT/INR normal. Chloride elevated 110, BUN elevated 21 with a normal creatinine. LFTs were normal. High sensitive troponin I was below detectable limits Twelve EKG was unremarkable. Patient's presentation physical findings and worse with movement laboratory evaluation is consistent with costochondritis and I did discuss this with the patient. Patient was given a prescription for naproxen 500 mg q.12 hours as needed for pain and Flexeril 10 mg 3 times a day as needed for pain and spasm. He was given printed and verbal instructions and discharged home. Admission/Observation Consideration of admission/observation: Escalation of care including admission/observation considered (Yes) Lab Data [facility] Lab Attestation statement: I reviewed the patient's lab results. 05/05/24 13:02 05/05/24 13:02 Labs: Lab Results 05/05/24 Range/Units 13:02 WBC 9.0 (4.8-10.8) X10*3/uL RBC 4.95 (4.60-5.80) X10*6/uL Hgb 15.5 (14.0-18.0) g/dl Hct 44.8 (42.0-52.0) % MCV 90.5 (80.0-98.0) fL MCH 31.3 (27.0-33.0) pg MCHC 34.6 (31.0-36.0) g/dl RDW 12.3 (11.0-16.0) % Plt Count 343 (160-400) X10*3/uL MPV 9.8 (9.4-12.4) fL Immature Gran % (Auto) 0.3 (0.0-0.4) % Neut % (Auto) 60.6 (45-73) % Lymph % (Auto) 27.1 (20-40) % [place] % (Auto) 8.8 (2-11) % Eos % (Auto) 2.4 (0-4) % Baso % (Auto) 0.8 (0-2) % Lymph # (Auto) 2.5 (1.2-4.9) X10*3/uL [place] # (Auto) 0.8 (0.1-1.2) X10*3/uL Eos # (Auto) 0.2 (0.0-0.4) X10*3/uL Baso # (Auto) 0.1 (0.0-0.2) X10*3/uL Abs Immat Gran (auto) 0.03 (0.00-0.03) X10*3/uL Absolute Neuts (auto) 5.5 (2.0-8.3) x10*3/uL Absolute Nucleated RBC 0.000 (0.0-0.012) X10*3/uL Nucleated RBC % (auto) 0.0 (0.0-0.2) /100WBC PT 12.4 (10.9-12.4) SEC INR 1.1 (0.9-1.1) Sodium 140 (135-145) mmol/L Potassium 3.9 (3.3-5.1) mmol/L Chloride 110 H (96-108) mmol/L Carbon Dioxide 25 (22-29) mmol/L Anion Gap 9 L (12-20) BUN 21 H (9-16) mg/dL Creatinine 0.85 (0.5-1.4) mg/dL Estim Creat Clear Calc 153.9 Estimated GFR > 60 Random Glucose 91 (60-115) mg/dL Calcium 9.8 (8.4-10.2) mg/dL Total Bilirubin 0.8 (0.0-1.0) mg/dL AST 32 (5-37) U/L ALT 34 (0-40) U/L Alkaline Phosphatase 65 (39-117) U/L Troponin I High Sens < 2.7 (<3.5-35.0) ng/L Total Protein 7.5 (6.5-8.0) g/dL Albumin 4.2 (3.5-5.0) g/dL Independent Interpretation I performed an independent interpretation of an: EKG Interpretation: My independent interpretation patient's laboratory evaluation done at 12:57 hours is as follows: Normal sinus rhythm with a rate of 71, normal SD interval, prolonged QRS of 102 milliseconds, normal QTC of 421 milliseconds, no ST segment elevation, no ST segment depression, inverted T-waves in lead 3 and V1, no PACs, no PVCs. Compared to EKG dated 01/08/2023 T-wave inversions were old, there is no significant change. Prescription Management I considered prescription management with: Pain Medication (Naproxen) and Other (Muscle anti spasmodic: Flexeril) Chronic Conditions Patient?s care impacted by: Hypertension and Other (Hypercholesterolemia) Discharge Plan Discharge Clinical Impression: Acute costochondritis Patient Disposition: Home, Self-Care Instructions: Costochondritis (ED) Additional Instructions: Your blood work was unremarkable. Your EKG was normal. Your exam and findings are consistent with inflammation of the muscles and joints of your chest (costochondritis). Please follow the costochondritis instructions. Take naproxen 500 mg pills, 1 pill every 12 hours as needed for pain. Take Flexeril (cyclobenzaprine) 10 mg pills, 1 pill every 6-8 hours as needed for pain or spasm. ?This medication will make you sleepy. ?Do not drive or work while taking this medication. Follow-up with your doctor in 2 days. Please return to the emergency department if your symptoms get worse or if you develop any symptoms that are concerning to you. Prescriptions: New naproxen sodium [Anaprox DS] 550 mg tablet 550 mg PO BID PRN (Reason: pain) Qty: 20 0RF cyclobenzaprine 10 mg tablet 10 mg PO TID PRN (Reason: muscle pain or spasm) Qty: 20 0RF No Action aspirin 81 mg tablet,chewable 81 mg PO DAILY 90 Days Qty: 90 1RF losartan 25 mg tablet 25 mg PO DAILY 90 Days Qty: 90 1RF montelukast 10 mg tablet 10 mg PO BEDTIME Qty: 90 1RF albuterol sulfate 90 mcg/actuation HFA aerosol inhaler 2 puff PO Q6H PRN (Reason: for wheezing) Qty: 8.5 1RF methocarbamol 750 mg tablet 1,500 mg PO TID PRN (Reason: pain) Qty: 20 0RF meloxicam 15 mg tablet 15 mg PO DAILY Qty: 7 0RF oxymetazoline [Afrin (oxymetazoline)] 0.05 % spray,non-aerosol 2 spray intranasal Q12H PRN (Reason: nasal congestion) 3 Days Qty: 15 0RF acetaminophen 500 mg capsule 1,000 mg PO Q6H PRN (Reason: fever) Qty: 30 0RF Print Language: [place]
[2024-05-05 13:07] LABS: MANUAL DIFF FLAG NO
[2024-05-05 13:16] LABS: Basophils Absolute Auto 0.1 X10*3/uL (0.0-0.2); Basophils Percent Auto 0.8 % (0-2); Eosinophils Absolute Auto 0.2 X10*3/uL (0.0-0.4); Eosinophils Percent Auto 2.4 % (0-4); Hematocrit 44.8 % (42.0-52.0); Hemoglobin 15.5 g/dl (14.0-18.0); INTERNATIONAL NORM RATIO 1.1 (0.9-1.1); Imm Gran Abs Auto 0.03 X10*3/uL (0.00-0.03); Imm Gran Pct Auto 0.3 % (0.0-0.4); Lymphocytes Absolute Auto 2.5 X10*3/uL (1.2-4.9); Lymphocytes Percent Auto 27.1 % (20-40); Mean Corpuscular HGB Conc 34.6 g/dl (31.0-36.0); Mean Corpuscular Hemoglobin 31.3 pg (27.0-33.0); Mean Corpuscular Volume 90.5 fL (80.0-98.0); Mean Platelet Volume 9.8 fL (9.4-12.4); Monocytes Absolute Auto 0.8 X10*3/uL (0.1-1.2); Monocytes Percent Auto 8.8 % (2-11); Neutrophils Absolute Auto 5.5 x10*3/uL (2.0-8.3); Neutrophils Percent Auto 60.6 % (45-73); Platelet Count 343 X10*3/uL (160-400); Prothrombin Time 12.4 SEC (10.9-12.4); Red Blood Count 4.95 X10*6/uL (4.60-5.80); Red Cell Distribution Width 12.3 % (11.0-16.0)
[2024-05-05 13:28] LABS: Alanine Aminotransferase 34 U/L (0-40); Albumin Level 4.2 g/dL (3.5-5.0); Alkaline Phosphatase 65 U/L (39-117); Anion Gap 9 (12-20); Aspartate Amino Transferase 32 U/L (5-37); Bilirubin Total 0.8 mg/dL (0.0-1.0); Blood Urea Nitrogen 21 mg/dL (9-16); Calcium 9.8 mg/dL (8.4-10.2); Carbon Dioxide 25 mmol/L (22-29); Chloride 110 mmol/L (96-108); Creatinine Clr Calc Pharmacy 153.9; Estimated Glomerular Filt Rate > 60; Glucose Random 91 mg/dL (60-115); Potassium 3.9 mmol/L (3.3-5.1); Sodium 140 mmol/L (135-145); Total Protein 7.5 g/dL (6.5-8.0)
[2024-05-05 13:33] LABS: Troponin-I High Sensitivity < 2.7 ng/L (<3.5-35.0)
[2024-05-05 18:18] VITALS: BP 116/80; PULSE 77; RESP 18; TEMP 36.6; O2SAT 96
== END 2024-05-05 18:19 | disposition home or self-care (01) ==
PROVIDERS: Registered Nurse Emergency; Emergency Provider Emergency Medicine Emergency Medical Services; PCP Internal Medicine
DX: R07.89 Other chest pain (principal); M94.0 Chondrocostal junction syndrome [Tietze]; Z79.899 Other long term (current) drug therapy
CPT/HCPCS: 36415; 80053; 84484; 85025; 85610; 93005; 99283

== ENCOUNTER → 2024-05-05 12:46 | Outpatient (BNV) | payer OTHER, SELFPAY | PROVIDERS: PCP Internal Medicine; Visit Provider Internal Medicine Cardiovascular Disease | DX: R94.31 Abnormal electrocardiogram [ECG] [EKG] (principal) | CPT/HCPCS: 93010 ==

== ENCOUNTER 2024-05-17 09:56 | Outpatient (AMB) | payer OTHER, SELFPAY ==
--- NOTE | 2024-05-17 10:02 | A.OFFPC_ITS ---
Vital Signs 05/17/24 10:05 Height 6 ft BMI Reason not done Patient refused/unable BP 122/66 Blood Pressure Location Lt brachial Position Sitting Pulse 78 Pulse Source Pulse Oximeter Temp 96.9 F Temp Source Skin Pulse Oximetry (%) 97 Oxygen Delivery Method Room Air Intake Visit Reasons: discuss a wheelchair Intake Note: Patient is here to follow up on discuss wheelchair. 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: Not Required per policy Accompanied by: Self / Same As Patient Allergies No Known Allergies Allergy (Verified 05/17/24 10:49) Medication List - Last Reconciled 05/17/24 by Kofi Bright MD acetaminophen 1,000 mg (2 x 500 mg) PO Q6H PRN albuterol sulfate 90 mcg/actuation 2 puffs PO Q6H PRN aspirin 81 mg PO DAILY 90 days cyclobenzaprine 10 mg PO TID PRN [Kneeling Scooter As directed] losartan 25 mg PO DAILY 90 days meloxicam 15 mg PO DAILY methocarbamol 1,500 mg (2 x 750 mg) PO TID PRN montelukast 10 mg PO BEDTIME naproxen sodium (Anaprox DS) 550 mg PO BID PRN oxymetazoline 0.05% (Afrin (oxymetazoline)) 2 sprays intranasal Q12H PRN 3 days Tobacco use date assessed: 05/17/24 Dental Screening Dental Screen Date: 05/17/24 Did you have a dental visit in the last 12 months?: Yes Did you have a dental problem in the last 6 months where you did not have access to dental care?: No Was dental information given to patient?: Patient has dentist HPI discuss a wheelchair HPI Details Patient comes in today for his follow-up visit and mainly to discuss about getting a prescription for a wheelchair Patient recently sustained a fall at home when he tripped over a slide and landed awkwardly, resulting in a fracture of the 5th metatarsal in his left Following the initial injury, patient went to a local urgent care center about one week later for increasing pain in his foot and wasy diagnosed with a fracture after x-rays were done He was advised that surgery was not necessary but his foot was immobilized with a cast and he was instructed to follow-up with orthopedics ABBE He was initially considering requesting a wheelchair to help improve his mobility but was advised to get a knee scooter instead due to insurance constraints surrounding wheelchair coverage Patient also reports previous ER visits for increased back pain and chest pain, which were evaluated and he was then prescribed some anti-inflammatory medication and muscle relaxants [facility] Medical History Obstructive sleep apnea Elevated blood pressure reading Excess skin of abdominal wall Paresthesia of left arm Anxiety Obesity (BMI 30-39.9) Pure hypercholesterolemia Vitamin D deficiency Asthma Surgical History History of hip surgery History of tonsillectomy Family History Father Healthy adult Mother No problems noted. 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 1. Little interest or pleasure in doing things: not at all 2. Feeling down, depressed, or hopeless: not at all 3. Trouble falling or staying asleep, or sleeping too much: not at all 4. Feeling tired or having little energy: not at all 5. Poor appetite or overeating: not at all 6. Feeling bad about yourself - or that you are a failure or have let yourself or your family down: not at all 7. Trouble concentrating on things, such as reading the newspaper or watching television: not at all 8. Moving or speaking so slowly that other people could have noticed. Or the opposite - being so fidgety or restless that you have been moving around a lot more than usual: not at all 9. Thoughts that you would be better off or of hurting yourself in some way: not at all Total score: 0 Depression Screening Interpretation: Negative Depression Screening Done: Yes 40181 - PHQ-9 Billing: Yes Source: Developed by Drs. Nadir Bean, Helder Chandra and colleagues, with an educational maia from [employer]. Thrive Questionnaire Date Thrive assessed: 05/17/24 I am a: Patient What is your living situation today?: I have a steady place to live Within the past 12 months, did the food you bought not last and you didn't have the money to get more?: Never true Within the past 12 months, did you worry whether your food would run out before you got money to buy more?: Never true Do you have trouble paying for medicines?: No Do you have trouble getting transportation to medical appointments?: No Do you have trouble paying your heating and electricity bill?: No Do you have trouble taking care of your child, family member or friend?: No Do you have trouble with day-to-day activities such as bathing, preparing meals, shopping, managing finances, etc.?: No Are you currently unemployed and looking for a job?: No Are you interested in more education?: No Please select the resources that you would like help with: None Currently or been in a relationship where the following occur: No concerns reported THRIVE Score: 0 AUDIT C Alcohol Use Questionnaire (AUDIT-C) 1. How often do you have a drink containing alcohol?: Monthly or less 2. How many drinks containing alcohol do you have on a typical day when you are drinking?: 1 or 2 Total Score: 1 Score Reviewed/Action Taken: Yes KADY-7 AMB Questionnaire KADY-7 Date KADY - 7 assessed: 05/17/24 Feeling nervous, anxious, or on edge: 0 = Not at all Not being able to stop or control worryin = Not at all Worrying too much about different things: 0 = Not at all Trouble relaxin = Not at all Being so restless that it is hard to sit still: 0 = Not at all Becoming easily annoyed or irritable: 0 = Not at all Feeling afraid as if something awful might happen: 0 = Not at all Total KADY-7 score (0-4 normal; 5-9 mild; 10-14 moderate; 15-21 severe): 0 Source: Developed by Alysa Bobby Kurt Kroenke and colleagues, with an educational maia from [employer]. Review of Systems Const Denies chills, Denies fatigue, Denies fever(s) and Denies headache(s) ENT Denies dysphagia, Denies dizziness, Denies otalgia, Denies headache(s), Denies neck pain, Denies odynophagia and Denies sore throat Card Reports chest pain (recurrent-described as similar to heartburns although he denies heartburns), Denies irregular heart rhythm, Denies palpitations and Denies dyspnea Resp Denies chest congestion, Denies cough and Denies dyspnea GI Denies abdominal pain, Denies constipation, Denies dysphagia, Denies heartburn, Denies diarrhea, Denies nausea, Denies odynophagia and Denies vomiting Denies difficulty urinating, Denies dysuria and Denies urinary frequency Musc Details: increased pain over the left foot - foot is now in a cast Denies back pain, Denies arthralgias and Denies neck pain Skin/Breast Denies rash Neuro Denies dizziness, Denies headache(s) and Denies paresthesias Endo Denies fatigue and Denies palpitations Physical exam (Primary Care) Vital Signs: Last Vital Signs Temp 96.9 F 05/17/24 10:05 Pulse 78 05/17/24 10:05 BP 122/66 05/17/24 10:05 Pulse Ox 97 05/17/24 10:05 Oxygen Delivery Method Room Air 05/17/24 10:05 Tobacco/Smoking Status: Tobacco use Status Tobacco use date assessed 05/17/24 05/17/24 10:11 Patient Tobacco Use Status Never used Tobacco 05/17/24 10:11 e-Cigarette/Vaping Use Never Used 05/17/24 10:11 PHQ-9: PHQ-9 Score PHQ-9: Total score 0 05/17/24 10:53 Depression Screening Interpretation: Negative Thrive Assessment: Date of Thrive Assessment Date Thrive assessed 05/17/24 05/17/24 10:11 Currently or been in a relationship where the following occur: No concerns reported Const General: no acute distress and alert HENMT Ears: TM's normal bilaterally and EAC's normal Throat: Yes posterior oropharynx normal and Yes tonsils normal (no TP congestion) Neck Neck: Yes no lymphadenopathy and Yes supple Thyroid: Thyroid normal Resp Auscultation: clear to auscultation bilaterally, no rales and no wheezes Cardio Rate: regular rate Rhythm: regular rhythm Heart sounds: no murmurs GI Palpation (GI): Soft to palpation and nontender Auscultation: normal bowel sounds General: Yes no CVA tenderness Back/Spine/Pelvis Back: no CVA tenderness Thoracic/Lumbar Spine: No lumbar spinal tenderness Skin Rashes: no rashes Extrem General: Yes no clubbing, cyanosis or edema Left lower extremity: foot (is currently in a cast) Results Reviewed Results Reviewed: Laboratory Tests 01/24/23 05/05/24 16:33 13:02 WBC 8.4 9.0 Hgb 15.8 15.5 Hct 45.9 44.8 Plt Count 334 343 ESR 2 Sodium 142 140 Potassium 3.8 3.9 Creatinine 0.94 0.85 Estimated GFR > 60 > 60 Random Glucose 91 Fasting Glucose 89 Calcium 9.8 9.8 AST 20 32 ALT 20 34 Triglycerides 99 Cholesterol 242 H LDL Cholesterol, Calc 163 H Coding Level of Care Code Est Pt Level 3 (45323) Diagnoses Closed nondisplaced fracture of fifth metatarsal bone of left foot with routine healing, subsequent encounter S92.355D Fracture alignment: nondisplaced Fracture type: closed Pure hypercholesterolemia E78.00 Benign essential hypertension I10 Obstructive sleep apnea G47.33 Mild intermittent asthma without complication J45.20 Asthma severity: mild Asthma persistence: intermittent Asthma complication type: uncomplicated Vitamin D deficiency E55.9 Anxiety F41.9 Obesity (BMI 30-39.9) E66.9 Additional Codes PHQ-9 - 72611 - PHQ-9 Billing: Yes ([id number]) Assessment & Plan Assessment & Plan (1) Fracture of fifth metatarsal bone of left foot with routine healing: Code(s): S92.352D - Displaced fracture of fifth metatarsal bone, left foot, subsequent encounter for fracture with routine healing Category: Medical Qualifiers: Fracture alignment: nondisplaced Fracture type: closed Qualified Code(s): S92.355D - Nondisplaced fracture of fifth metatarsal bone, left foot, subsequent encounter for fracture with routine healing Plan: Patient's left foot is currently in a cast He has already been seen by Orthopedics for follow-up and is currently waiting for his knee scooter to arrive Follow-up with orthopedics as scheduled (2) Pure hypercholesterolemia: Code(s): E78.00 - Pure hypercholesterolemia, unspecified Category: Medical Plan: Reinforced low cholesterol diet Will recheck his fasting lipids in 4 months for follow up (3) Benign essential hypertension: Code(s): I10 - Essential (primary) hypertension Category: Medical Plan: Reinforced low sodium diet Patient used to take Losartan 25 mg QD (had a recurrent cough when he was on Lisinopril previously) but he stopped taking Losartan when his BP improved significantly after he was able to lose weight down to about 220 pounds a few years ago He has since gained weight again to his current 285 pounds His BP has been up and down over the past few years and with his current symptoms, have advised that he should start back on Losartan 25 mg QD for now until his chest symptoms get checked out further Have instructed patient to call if he starts experiencing recurrent symptoms of hypotension, including dizziness/lightheadedness that are especially triggered by changes in position and his systolic BP drops below 100 (4) Obstructive sleep apnea: Comment: Mild to moderate degree of sleep apnea. The AHI was 15/hr and oxygen denise was 86%. Code(s): G47.33 - Obstructive sleep apnea (adult) (pediatric) Category: Medical Plan: He was diagnosed with moderate RADHA on previous sleep study Continue using his CPAP device when sleeping at night Follow up with Sleep Medicine as scheduled (5) Asthma: Code(s): J45.909 - Unspecified asthma, uncomplicated Category: Medical Qualifiers: Asthma severity: mild Asthma persistence: intermittent Asthma complication type: uncomplicated Qualified Code(s): J45.20 - Mild intermittent asthma, uncomplicated Plan: Stable - continue Montelukast 10 mg QD and Albuterol HFA 2 inhalations every 6 hours as needed (6) Vitamin D deficiency: Code(s): E55.9 - Vitamin D deficiency, unspecified Category: Medical Plan: He has not been taking his Vitamin D supplements in a while now Will recheck his Vitamin D level in 4 months for follow up (7) Anxiety: Code(s): F41.9 - Anxiety disorder, unspecified Category: Medical Plan: He used to take Hydroxyzine PRN but stopped taking it a while back when he felt that his anxiety was better controlled although he has been getting more anxious again lately due to his recurrent chest symptoms Does not wish to take anything for his anxiety at this time (8) Obesity (BMI 30-39.9): Code(s): E66.9 - Obesity, unspecified Category: Medical Plan: Reinforced diet/exercise as tolerated/lose weight Plan To return in 4 months for his next annual physical examination Orders: Orders Complete Blood Count Auto Diff 4 Months D64.9 - Anemia, unspecified, Z00.00 - Encounter for general adult medical examination without abnormal findings TSH reflex Free T4 4 Months E78.00 - Pure hypercholesterolemia, unspecified, Z00.00 - Encounter for general adult medical examination without abnormal findings Vitamin D 25-OH Total 4 Months E55.9 - Vitamin D deficiency, unspecified, Z00.00 - Encounter for general adult medical examination without abnormal findings Hemoglobin A1c 4 Months R73.9 - Hyperglycemia, unspecified Comprehensive [place]. Panel Fast 4 Months E78.00 - Pure hypercholesterolemia, unspecified, Z00.00 - Encounter for general adult medical examination without abnormal findings Lipid Panel 4 Months E78.00 - Pure hypercholesterolemia, unspecified, Z00.00 - Encounter for general adult medical examination without abnormal findings UA CC w/rflx Micro + Cult 4 Months R30.0 - Dysuria, Z00.00 - Encounter for general adult medical examination without abnormal findings
[2024-05-17 10:05] VITALS: BP 122/66; PULSE 78; TEMP 36.1; O2SAT 97
== END 2024-05-17 11:06 | disposition home or self-care (01) ==
PROVIDERS: PCP Internal Medicine; Visit Provider Internal Medicine
DX: S92.355D Nondisplaced fracture of fifth metatarsal bone, left foot, subsequent encounter for fracture with routine healing (principal); E78.00 Pure hypercholesterolemia, unspecified; I10 Essential (primary) hypertension; G47.33 Obstructive sleep apnea (adult) (pediatric); J45.20 Mild intermittent asthma, uncomplicated; E55.9 Vitamin D deficiency, unspecified; F41.9 Anxiety disorder, unspecified; E66.9 Obesity, unspecified

== ENCOUNTER → 2024-05-17 09:56 | Outpatient (BNVA) | payer OTHER, SELFPAY | PROVIDERS: PCP Internal Medicine; Visit Provider Internal Medicine | DX: S92.355D Nondisplaced fracture of fifth metatarsal bone, left foot, subsequent encounter for fracture with routine healing (principal); E78.00 Pure hypercholesterolemia, unspecified; I10 Essential (primary) hypertension; G47.33 Obstructive sleep apnea (adult) (pediatric); J45.20 Mild intermittent asthma, uncomplicated; E55.9 Vitamin D deficiency, unspecified; F41.9 Anxiety disorder, unspecified; E66.9 Obesity, unspecified; Z99.89 Dependence on other enabling machines and devices | CPT/HCPCS: 96127 ==

== ENCOUNTER 2024-05-26 08:12 | Outpatient (REF) | payer OTHER, SELFPAY ==
--- NOTE | ~2024-05-26 | XR_ITS ---
EXAMINATION: XR FOOT 3 OR MORE VIEWS LEFT, XR ANKLE 3 OR MORE VIEWS LEFT HISTORY: M25.572 - Pain in left ankle and joints of left foot COMPARISON: Comparison is made with the prior examination of the left foot dated 04/28/2024. FINDINGS: Six views of the left foot and ankle are submitted. Osseous mineralization is normal. Again seen is a nondisplaced fracture of the base of the 5th metatarsal. The fracture line remains visible. The ankle is intact. The joint spaces are preserved. There is a small plantar calcaneal spur. The soft tissues are unremarkable. XR/XR ankle LT min 3V IMPRESSION: Nondisplaced fracture of the base of the 5th metatarsal without change. Electronically signed by: aNdir Ruiz MD 05/27/2024 07:08 AM [facility]IE SUE
--- NOTE | ~2024-05-26 | XR_ITS ---
EXAMINATION: XR FOOT 3 OR MORE VIEWS LEFT, XR ANKLE 3 OR MORE VIEWS LEFT HISTORY: M25.572 - Pain in left ankle and joints of left foot COMPARISON: Comparison is made with the prior examination of the left foot dated 04/28/2024. FINDINGS: Six views of the left foot and ankle are submitted. Osseous mineralization is normal. Again seen is a nondisplaced fracture of the base of the 5th metatarsal. The fracture line remains visible. The ankle is intact. The joint spaces are preserved. There is a small plantar calcaneal spur. The soft tissues are unremarkable. XR/XR foot LT min 3V IMPRESSION: Nondisplaced fracture of the base of the 5th metatarsal without change. Electronically signed by: Nadir Ruiz MD 05/27/2024 07:08 AM [facility]
== END 2024-05-26 08:13 | disposition home or self-care (01) ==
LOC: HO.HOSX 08:12
DX: S92.355D Nondisplaced fracture of fifth metatarsal bone, left foot, subsequent encounter for fracture with routine healing (principal)
CPT/HCPCS: 29405; 73610; 73630

== ENCOUNTER 2024-05-26 14:18 | Outpatient (AMB) | payer OTHER, SELFPAY ==
--- NOTE | 2024-05-26 14:31 | MHC.OFFVIS ---
Intake Visit Reasons: OV 5th metatarsal bone, left foot DOI-04/11/24 Intake Note: Baljeet is a 43 year old male who presents today for follow up s/p left foot injury, DOI 04/11/24. During last visit patient was instructed to be completely non-weight bearing, placed into a short-leg cast, and given crutches. Patient was also instructed to be out of work until today's visit. Today patient reports he is not having pain at the moment. Allergies No Known Allergies Allergy (Verified 05/26/24 14:57) HPI HPI OV 5th metatarsal bone, left foot DOI-04/11/24: Details: Baljeet is a 43 year old male who presents today for follow up s/p left foot injury, DOI 04/11/24. During last visit patient was instructed to be completely non-weight bearing, placed into a short-leg cast, and given crutches. Patient was also instructed to be out of work until today's visit. Today patient reports he is not having pain at the moment. [facility] Medical History Obstructive sleep apnea Elevated blood pressure reading Excess skin of abdominal wall Paresthesia of left arm Anxiety Obesity (BMI 30-39.9) Pure hypercholesterolemia Vitamin D deficiency Asthma Surgical History History of hip surgery History of tonsillectomy Family History Father Healthy adult Mother No problems noted. 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 Cognitive needs: No Hearing needs: No Vision needs: Yes (Glasses) Review of Systems Const All systems reviewed & are unremarkable except as noted in HPI and below Physical Exam Extrem Other: Patient's left foot swollen and ecchymotic to inspection No erythema No lacerations, abrasions, open areas No evidence of infection Patient reports mild tenderness to palpation of the lateral aspect of the left foot, particularly over the base of the 5th metatarsal No tenderness to palpation of the medial foot, lateral or medial malleoli, or elsewhere on the left foot Patient is able to flex and extend the digits of the left foot without difficulty Distal sensation intact Capillary refill brisk Office Procedures Casting/Splints 85565-Vqtla Leg Cast Application Procedure code (CPT) selection complete Results Reviewed Results Reviewed: X-rays obtained in the office today and independently reviewed by me, Jose Roberto Anthony PA-C, demonstrate nondisplaced fracture of the base of the 5th metatarsal of the right foot consistent with Jacobs fracture with minimal evidence of bony healing Assessment & Plan Assessment & Plan (1) Jacobs fracture: Code(s): S99.199A - Other physeal fracture of unspecified metatarsal, initial encounter for closed fracture Category: Medical Plan 1. 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
== END 2024-05-26 16:08 | disposition home or self-care (01) ==
PROVIDERS: PCP Internal Medicine
DX: S92.351D Displaced fracture of fifth metatarsal bone, right foot, subsequent encounter for fracture with routine healing (principal); Z48.89 Encounter for other specified surgical aftercare
CPT/HCPCS: 29405; 99024

== ENCOUNTER → 2024-05-26 14:24 | Outpatient (BNV) | payer OTHER, SELFPAY | PROVIDERS: Visit Provider Radiology Diagnostic Radiology | DX: S92.354A Nondisplaced fracture of fifth metatarsal bone, right foot, initial encounter for closed fracture (principal) | CPT/HCPCS: 73610; 73630 ==

== ENCOUNTER 2024-06-11 08:00 | Outpatient (REF) | payer OTHER, SELFPAY ==
--- NOTE | ~2024-06-11 | XR_ITS ---
EXAMINATION: XR FOOT 3 OR MORE VIEWS LEFT HISTORY: M79.672 - Pain in left foot COMPARISON: Comparison is made with the prior examination dated 05/26/2024. FINDINGS: Three views of the left foot are submitted. Osseous mineralization is normal. Again seen is a nondisplaced fracture of the base of the 5th metatarsal. The fracture line is slightly blurred when compared to the prior study, but remains visible. There are degenerative changes of the talonavicular joint. There is a small plantar calcaneal spur. The soft tissues are unremarkable. XR/XR foot LT min 3V IMPRESSION: Nondisplaced fracture of the base of the 5th metatarsal. Electronically signed by: Nadir Ruiz MD 06/14/2024 09:57 AM KATIE
== END 2024-06-11 08:01 | disposition home or self-care (01) ==
LOC: HO.HOSX 08:00
DX: M79.672 Pain in left foot (principal); S92.355A Nondisplaced fracture of fifth metatarsal bone, left foot, initial encounter for closed fracture; X58.XXXA Exposure to other specified factors, initial encounter; Y93.9 Activity, unspecified; Y92.9 Unspecified place or not applicable; Y99.9 Unspecified external cause status
CPT/HCPCS: 73630

== ENCOUNTER 2024-06-11 11:04 | Outpatient (AMB) | payer OTHER, SELFPAY ==
[2024-06-11 11:36] VITALS: BMI 39.3
--- NOTE | 2024-06-11 11:36 | MHC.OFFVIS ---
Vital Signs 06/11/24 11:36 Height 6 ft Weight 290 lb BMI 39.3 Intake Visit Reasons: OV - Left 5th Metatarsal Fx-04/11/24 Cast off w XR Intake Note: Baljeet is a 43 year old male who presents today for follow up s/p left foot fracture 04/11/24. At his last visit he was placed in a short leg cast and instructed to remain non weight bearing. Patient reports he is doing well. Reports occasional numbness and tingling, as well as pain. Patient hopes to go on a boot today. Allergies No Known Allergies Allergy (Verified 06/11/24 11:40) HPI HPI OV - Left 5th Metatarsal Fx-04/11/24 Cast off w XR: Details: Baljeet is a 43 year old male who presents today for follow up s/p left foot fracture 04/11/24. At his last visit he was placed in a short leg cast and instructed to remain non weight bearing. Patient reports he is doing well. Reports occasional numbness and tingling, as well as pain. Patient hopes to go on a boot today. [facility] Medical History Obstructive sleep apnea Elevated blood pressure reading Excess skin of abdominal wall Paresthesia of left arm Anxiety Obesity (BMI 30-39.9) Pure hypercholesterolemia Vitamin D deficiency Asthma Surgical History History of hip surgery History of tonsillectomy Family History Father Healthy adult Mother No problems noted. 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 [employer] Cognitive needs: No Hearing needs: No Vision needs: Yes (Glasses) Review of Systems Const All systems reviewed & are unremarkable except as noted in HPI and below Physical Exam Vital Signs: BMI result Body Mass Index 39.3 Extrem Other: Patient's left foot swollen and ecchymotic to inspection No erythema No lacerations, abrasions, open areas No evidence of infection Patient reports no tenderness to palpation of the lateral aspect of the left foot, particularly over the base of the 5th metatarsal No tenderness to palpation of the medial foot, lateral or medial malleoli, or elsewhere on the left foot Patient is able to flex and extend the digits of the left foot without difficulty Distal sensation intact Capillary refill brisk Assessment & Plan Assessment & Plan (1) Jacobs fracture: Code(s): S99.199A - Other physeal fracture of unspecified metatarsal, initial encounter for closed fracture Category: Medical Plan 1. Jacobs fracture of the left foot Date of injury 04/11/2024 Patient is educated about this injury Patient is educated about the typical treatment course At this time, patient was told that he can begin weight-bearing on the left foot, and his placed into a tall boot today Patient was educated that if he experiences increases in pain or swelling, he should cease weight-bearing and call us for repeat assessment Patient can return to work as long as he wears the boot Patient will follow-up in 4 weeks with repeat x-rays, sooner with any acute concerns Orders: Orders XR foot LT min 3V Today M79.672 - Pain in left foot Coding Level of Care Code Global (95009) Diagnoses Jacobs fracture S99.199A
== END 2024-06-11 11:54 | disposition home or self-care (01) ==
PROVIDERS: PCP Internal Medicine
DX: S99.199A Other physeal fracture of unspecified metatarsal, initial encounter for closed fracture (principal)
CPT/HCPCS: 99024

== ENCOUNTER → 2024-06-11 11:05 | Outpatient (BNV) | payer OTHER, SELFPAY | PROVIDERS: Visit Provider Radiology Diagnostic Radiology | DX: S92.355A Nondisplaced fracture of fifth metatarsal bone, left foot, initial encounter for closed fracture (principal) | CPT/HCPCS: 73630 ==

== ENCOUNTER 2024-07-05 09:45 | Outpatient (AMB) | payer OTHER, SELFPAY ==
--- NOTE | 2024-07-05 10:29 | AM.OFFWIN_ITS ---
Intake Vital Signs 07/05/24 10:32 BMI Reason not done Patient refused/unable BP 120/80 Blood Pressure Location Rt brachial Position Sitting Pulse 82 Pulse Source Pulse Oximeter Pulse Oximetry (%) 98 Oxygen Delivery Method Room Air Intake Visit Reasons: EP RT eye concerns Intake Note: Patient here for right eye redness and swelling that has been present for a couple of days now. Patient Tobacco Use Status: Never used Tobacco Allergies No Known Allergies Allergy (Verified 07/05/24 10:34) Do you need a note to return to daycare/school/sports/work: No HPI HPI Comments History of Present Illness Details History of Present Illness The patient is a 43-year-old male presenting with a stye in the right eye. - The condition began to significantly b other the patient towards the end of his workday 5 days ago with worsening to the point of early work departure the next day. - Application of warm compresses and sty e ocular drops has been attempted with inconsistent relief, as the condition appears to wax and wane, presenting periods of significant irritation gloria to having a constant foreign body sensation. - The stye has caused mild irritation an d episodes of slight bleeding on frequent touching. - The patient reports multiple recurrent styes in the same location over the past year and a half, with prior history affecting the left eye many years prior. - The patient does not wear contact lens es and reports no active discharge and has no visual changes. - Patient has expressed interest in pote ntial drainage, given similar issues requiring surgical intervention in a family member. Physical Exam General: Cooperative, healthy appearing, comfortable, no acute distress and well developed Orientation: Patient oriented x3 Limitations: No limitations Head: Normal to inspection Ears: Hearing grossly normal bilaterally Nose: Normal External nose present Face and sinus: Normal facial exam Eyes: 0.25cm erythematous lump on right lower inner eyelid, no drainage. eyes, lids and surrounding area otherwise normal Neck: Normal visual inspection and Yes full ROM Respiratory: Normal respiratory effort and able to speak in complete sentences. Skin: No rashes or lesions noted Neuro: Patient oriented x3 Extremities: Normal to inspection [facility] Medical History Obstructive sleep apnea Elevated blood pressure reading Excess skin of abdominal wall Paresthesia of left arm Anxiety Obesity (BMI 30-39.9) Pure hypercholesterolemia Vitamin D deficiency Asthma Surgical History History of hip surgery History of tonsillectomy Family History Father Healthy adult Mother No problems noted. 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 Cognitive needs: No Hearing needs: No Vision needs: Yes (Glasses) Review of Systems Const All systems reviewed & are unremarkable except as noted in HPI and below Physical Exam Vital Signs: Last Vital Signs Pulse 82 07/05/24 10:32 BP 120/80 07/05/24 10:32 Pulse Ox 98 07/05/24 10:32 Oxygen Delivery Method Room Air 07/05/24 10:32 Assessment & Plan Assessment & Plan (1) Hordeolum externum of right lower eyelid: Code(s): H00.012 - Hordeolum externum right lower eyelid Plan: The proposed plan involves maintaining rigorous warm compress application to the right eye to mitigate the obstruction and promote drainage. Erythromycin ophthalmic ointment will be initiated to prevent or treat potential infections, applying it four times daily. This is expected to stay in place better than drops, minimizing wastage. Lid scrubs could be used as an additional method for comfort and faster resolution. Should the stye recur persistently, coordinating a consultation with an dairy farmworker may become necessary for further evaluation and potential procedural management. Maintaining good eyelid hygiene and frequent monitoring of symptoms are recommended to prevent recurrence. Patient was informed and verbally consented to the use of an ambient scribe for clinic note documentation during this visit. Medications: New erythromycin Apply to left eye 4 times a day while awake 0.5 inches ophthalmic (eye) QID 3.5 grams 0RF Coding Level of Care Code Est Pt Level 3 (88157) Diagnoses Hordeolum externum of right lower eyelid H00.012
[2024-07-05 10:32] VITALS: BP 120/80; PULSE 82; O2SAT 98
== END 2024-07-05 11:16 | disposition home or self-care (01) ==
PROVIDERS: PCP Internal Medicine; Visit Provider Physician Assistant
DX: H00.012 Hordeolum externum right lower eyelid (principal)

== ENCOUNTER → 2024-07-05 09:45 | Outpatient (BNVA) | payer OTHER, SELFPAY | PROVIDERS: PCP Internal Medicine; Visit Provider Physician Assistant ==

== ENCOUNTER 2024-07-14 07:54 | Outpatient (REF) | payer OTHER, SELFPAY ==
--- NOTE | ~2024-07-14 | XR_ITS ---
EXAMINATION: XR FOOT 3 OR MORE VIEWS LEFT HISTORY: M79.672 - Pain in left foot COMPARISON: Comparison is made with the prior examination dated 06/11/2024. FINDINGS: Three views of the left foot are submitted. Osseous mineralization is normal. Again seen is a nondisplaced fracture of the base of the 5th metatarsal. The fracture line remains visible. The joint spaces are preserved. The soft tissues are unremarkable. XR/XR foot LT min 3V IMPRESSION: Nondisplaced fracture of the base of the 5th metatarsal without change. Electronically signed by: Nadir Ruiz MD 07/14/2024 10:43 AM EDT
== END 2024-07-14 07:55 | disposition home or self-care (01) ==
LOC: HO.HOSX 07:54
DX: M79.672 Pain in left foot (principal); S92.355D Nondisplaced fracture of fifth metatarsal bone, left foot, subsequent encounter for fracture with routine healing
CPT/HCPCS: 73630

== ENCOUNTER 2024-07-14 09:22 | Outpatient (AMB) | payer OTHER, SELFPAY ==
[2024-07-14 09:34] VITALS: BMI 39.3
--- NOTE | 2024-07-14 09:34 | MHC.OFFVIS ---
Vital Signs 07/14/24 09:34 Height 6 ft Weight 290 lb BMI 39.3 Intake Visit Reasons: OV - Left 5th Metatarsal Fx-04/11/24 Cast off w XR Intake Note: Baljeet is a 43 year old male who presents today for a follow up visit of his left 5th Metatarsal fracture DOI: 04/11/24. States he is doing well, has returned to work wearing his boot and onky has pain with certain movements. Allergies No Known Allergies Allergy (Verified 07/14/24 09:36) HPI HPI OV - Left 5th Metatarsal Fx-04/11/24 Cast off w XR: Details: Baljeet is a 43 year old male who presents today for a follow up visit of his left 5th Metatarsal fracture DOI: 04/11/24. States he is doing well, has returned to work wearing his boot and onky has pain with certain movements. Patient does state he has still been using his crutches to help with weight-bearing. No other acute complaints or concerns at this time. [facility] Medical History Obstructive sleep apnea Elevated blood pressure reading Excess skin of abdominal wall Paresthesia of left arm Anxiety Obesity (BMI 30-39.9) Pure hypercholesterolemia Vitamin D deficiency Asthma Surgical History History of hip surgery History of tonsillectomy Family History Father Healthy adult Mother No problems noted. 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 Cognitive needs: No Hearing needs: No Vision needs: Yes (Glasses) Review of Systems Const All systems reviewed & are unremarkable except as noted in HPI and below Physical Exam Vital Signs: BMI result Body Mass Index 39.3 Extrem Other: Patient's left foot normal to inspection No erythema No lacerations, abrasions, open areas No evidence of infection Patient reports no tenderness to palpation of the lateral aspect of the left foot No tenderness to palpation of the medial foot, lateral or medial malleoli, or elsewhere on the left foot Patient is able to flex and extend the digits of the left foot without difficulty Distal sensation intact Capillary refill brisk Results Reviewed Results Reviewed: X-rays obtained in the office today and independently reviewed by me, Jose Roberto Anthony PA-C, demonstrate nondisplaced fracture of the base of the 5th metatarsal of the right foot consistent with Jacobs fracture with minimal evidence of bony healing Assessment & Plan Assessment & Plan (1) Jacobs fracture: Code(s): S99.199A - Other physeal fracture of unspecified metatarsal, initial encounter for closed fracture Category: Medical Plan 1. Jacobs fracture of the left foot Date of injury 04/11/2024 Patient is educated about this injury Patient is educated about the typical treatment course At this time, patient was told that he can begin weight-bearing on the left foot, and his placed into a tall boot today Patient was educated that if he experiences increases in pain or swelling, he should cease weight-bearing and call us for repeat assessment Patient can return to work as long as he wears the boot Patient will follow-up in 4 weeks with repeat x-rays, sooner with any acute concerns Orders: Orders XR foot LT min 3V Today M79.672 - Pain in left foot Coding Level of Care Code Global (09676) Diagnoses Jacobs fracture S99.199A
== END 2024-07-14 09:46 | disposition home or self-care (01) ==
LOC: HO.HOS 09:22
DX: S99.199A Other physeal fracture of unspecified metatarsal, initial encounter for closed fracture (principal)
CPT/HCPCS: 99024

== ENCOUNTER → 2024-07-14 09:24 | Outpatient (BNV) | payer OTHER, SELFPAY | PROVIDERS: Visit Provider Radiology Diagnostic Radiology | DX: S92.355A Nondisplaced fracture of fifth metatarsal bone, left foot, initial encounter for closed fracture (principal) | CPT/HCPCS: 73630 ==

== ENCOUNTER 2024-07-27 15:22 | Outpatient (AMB) | payer OTHER, SELFPAY ==
[2024-07-27 15:34] VITALS: BP 126/84; PULSE 84; O2SAT 96
--- NOTE | 2024-07-27 15:34 | A.OFFVIS_ITS ---
Vital Signs 3 07/27/24 15:34 Height 6 ft BP 126/84 Pulse 84 Pulse Source Pulse Oximeter Pulse Oximetry (%) 96 Oxygen Delivery Method Room Air Intake Visit Reasons: Follow up Intake Note: Patient presents follow up for RADHA. Compliance in chart. 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 Second Required: No Accompanied by: Self / Same As Patient Allergies No Known Allergies Allergy (Verified 07/27/24 15:37) Medication List - Last Reconciled 07/27/24 by MYLES Peterson acetaminophen 1,000 mg (2 x 500 mg) PO Q6H PRN albuterol sulfate 90 mcg/actuation 2 puffs PO Q6H PRN aspirin 81 mg PO DAILY 90 days erythromycin 0.5 inches ophthalmic (eye) QID [Kneeling Scooter As directed] losartan 25 mg PO DAILY 90 days meloxicam 15 mg PO DAILY methocarbamol 1,500 mg (2 x 750 mg) PO TID PRN montelukast 10 mg PO BEDTIME naproxen sodium (Anaprox DS) 550 mg PO BID PRN oxymetazoline 0.05% (Afrin (oxymetazoline)) 2 sprays intranasal Q12H PRN 3 days HPI Comments Details: 43-y/o male patient presents for follow up of RADHA on CPAP. Pt's sleep study (02/22/21) result was significant for mild to moderate degree of sleep apena. The AHI was 15/hr and oxygen denise was 86%. Patient reports he continues to use his CPAP nightly, it has become part of his usual routine. He feels good with CPAP use and has good daytime energy. However, he reports that he has not received CPAP supplies, but only once since he received the CPAP in 2021. He has been wary to request refills from his respiratory company, as he states he received a large bill from them awhile ago, and did not understand why. He also notes his CPAP is displaying a error warning regarding humidification. And that the humidification feature is inconsistently working. CPAP compliance report reviewed between 04/28/2024 and 07/26/2024 Overall usage 94% Usage greater than 4 hours 94% Average usage on days used 6 hours and 59 minutes APAP 5-20 cm H2O with EPR set to 2 Maximum pressure 11.2 cm H2O Average leaks 24 L/min Residual AHI 2.8 per hour CPAP device interrogated via BitPass- remote assist does show humidification error. [facility] Medical History Obstructive sleep apnea Elevated blood pressure reading Excess skin of abdominal wall Paresthesia of left arm Anxiety Obesity (BMI 30-39.9) Pure hypercholesterolemia Vitamin D deficiency Asthma Surgical History History of hip surgery History of tonsillectomy Family History Father Healthy adult Mother No problems noted. 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 Cognitive needs: No Hearing needs: No Vision needs: Yes (Glasses) Physical Exam Vital Signs: Last Vital Signs Pulse 84 07/27/24 15:34 BP 126/84 07/27/24 15:34 Pulse Ox 96 07/27/24 15:34 Oxygen Delivery Method Room Air 07/27/24 15:34 Const General: no acute distress Orientation/consciousness: patient oriented x3 Resp Effort & Inspection: normal respiratory effort and able to speak in complete sentences Neuro General: patient oriented x3 Psych Mental Status: mental status grossly normal Speech and movement: Clear speech present Attitude: cooperative Results Reviewed Results Reviewed: Assessment & Plan Assessment & Plan (1) Obstructive sleep apnea: Comment: Mild to moderate degree of sleep apnea. The AHI was 15/hr and oxygen denise was 86%. Code(s): G47.33 - Obstructive sleep apnea (adult) (pediatric) Category: Medical Plan For RADHA: Continue APAP [id number] w/ EPR 2 nightly > 4 hours, as pt continues to have good clinical effect from use. However, patient CPAP device is currently displaying a ?humidification error?, thus, we will request machine check. Patient has not receive new CPAP supplies in a very long time, thus we will request CPAP supplies. Clean CPAP machine and supplies routinely. Change CPAP supplies routinely. Advised to use distilled water in CPAP water reservoir. Pt to contact us or respiratory company with any questions or concerns. Pt to follow-up in 6 months or sooner prn. Coding Level of Care Code Est Pt Level 3 (97182) Diagnoses Obstructive sleep apnea G47.33
== END 2024-07-27 16:25 | disposition home or self-care (01) ==
LOC: HO.HSMS 15:22
PROVIDERS: Visit Provider Nurse Practitioner Family
DX: G47.33 Obstructive sleep apnea (adult) (pediatric) (principal)
CPT/HCPCS: 99213

== ENCOUNTER 2024-08-09 08:09 | Outpatient (REF) | payer OTHER, SELFPAY ==
--- NOTE | ~2024-08-09 | XR_ITS ---
CLINICAL HISTORY: M79.672 - Pain in left foot Left foot three views Comparison: 04/28/2024 Findings: Incompletely healed fracture base of 5th metatarsal. There has been no change in alignment. No new bony abnormalities identified. No radiopaque foreign body noted. Impression: Incompletely healed fracture base of 5th metatarsal This document has been electronically signed by: Quentin Purdy MD on 08/11/2024 18:13:44
== END 2024-08-09 08:10 | disposition home or self-care (01) ==
LOC: HO.HOSX 08:09
DX: M79.672 Pain in left foot (principal); S92.352D Displaced fracture of fifth metatarsal bone, left foot, subsequent encounter for fracture with routine healing
CPT/HCPCS: 73630

== ENCOUNTER 2024-08-09 10:25 | Outpatient (AMB) | payer OTHER, SELFPAY ==
[2024-08-09 10:44] VITALS: BMI 39.3
--- NOTE | 2024-08-09 10:44 | MHC.OFFVIS ---
Vital Signs 08/09/24 10:44 Height 6 ft Weight 290 lb BMI 39.3 Intake Visit Reasons: OV - Left 5th Metatarsal Fx-04/11/24 Cast off w XR Intake Note: Baljeet is a 43 year old male who presents today for a follow up visit of his Jacobs fracture of left foot DOI: 04/11/24. States he is doing well but still has weakness in ankle when weight bearing. Allergies No Known Allergies Allergy (Verified 08/09/24 10:46) HPI HPI OV - Left 5th Metatarsal Fx-04/11/24 Cast off w XR: Details: Baljeet is a 43 year old male who presents today for a follow up visit of his Jacobs fracture of left foot DOI: 04/11/24. States he is doing well but still has weakness in ankle when weight bearing. Denies any pain or discomfort in the left foot. Patient does report that because he is in the boot for so long, he feels his gait is altered, but states he is not interested in any physical therapy at this time. [facility] Medical History Obstructive sleep apnea Elevated blood pressure reading Excess skin of abdominal wall Paresthesia of left arm Anxiety Obesity (BMI 30-39.9) Pure hypercholesterolemia Vitamin D deficiency Asthma Surgical History History of hip surgery History of tonsillectomy Family History Father Healthy adult Mother No problems noted. 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 Cognitive needs: No Hearing needs: No Vision needs: Yes (Glasses) Review of Systems Const All systems reviewed & are unremarkable except as noted in HPI and below Physical Exam Vital Signs: BMI result Body Mass Index 39.3 Const General: no acute distress Orientation/consciousness: patient oriented x3 Resp Effort & Inspection: normal respiratory effort and able to speak in complete sentences Neuro General: patient oriented x3 Extrem Other: Patient's left foot normal to inspection No erythema No lacerations, abrasions, open areas No evidence of infection Patient reports no tenderness to palpation of the lateral aspect of the left foot No tenderness to palpation of the medial foot, lateral or medial malleoli, or elsewhere on the left foot Patient is able to flex and extend the digits of the left foot without difficulty Able to dorsiflex, plantar flex, invert, raimundo the left foot fully and without difficulty Distal sensation intact Capillary refill brisk Psych Mental Status: mental status grossly normal Speech and movement: Clear speech present Attitude: cooperative Results Reviewed Results Reviewed: X-rays obtained in the office today and independently reviewed by me, Jose Roberto Anthony PA-C, demonstrate nondisplaced fracture of the base of the 5th metatarsal of the right foot consistent with Jacobs fracture with good evidence of interval bony healing Assessment & Plan Assessment & Plan (1) Jacobs fracture: Code(s): S99.199A - Other physeal fracture of unspecified metatarsal, initial encounter for closed fracture Category: Medical Plan 1. Jacobs fracture of the left foot Date of injury 04/11/2024 Patient is educated about this injury Patient is educated about the typical treatment course At this time, patient was told that he can discontinue use of the boot, and can bear weight as long as he is wearing supportive footwear Patient was educated that if he experiences increases in pain or swelling, he should cease weight-bearing and call us for repeat assessment Patient will follow-up as needed with any acute concerns Orders: Orders XR foot LT min 3V Today M79.672 - Pain in left foot Coding Level of Care Code Est Pt Level 3 (91823) Diagnoses Jacobs fracture S99.199A
== END 2024-08-09 10:52 | disposition home or self-care (01) ==
LOC: HO.HOS 10:26
PROVIDERS: PCP Internal Medicine
DX: S92.352D Displaced fracture of fifth metatarsal bone, left foot, subsequent encounter for fracture with routine healing (principal)
CPT/HCPCS: 99213

== ENCOUNTER → 2024-08-09 10:29 | Outpatient (BNV) | payer OTHER, SELFPAY | PROVIDERS: Visit Provider Radiology Diagnostic Radiology | DX: S92.352D Displaced fracture of fifth metatarsal bone, left foot, subsequent encounter for fracture with routine healing (principal) | CPT/HCPCS: 73630 ==

== ENCOUNTER 2024-09-10 10:13 | Outpatient (AMB) | payer OTHER, SELFPAY ==
[2024-09-10 10:15] VITALS: BP 110/72; PULSE 70; O2SAT 96; BMI 39.6
--- NOTE | 2024-09-10 10:15 | MHC.PC.OV ---
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 Required: No Accompanied by: Self / Same As Patient Allergies No Known Allergies Allergy (Verified 09/10/24 10:36) Medication List - Last Reconciled 09/10/24 by Kofi Bright MD acetaminophen 1,000 mg (2 x 500 mg) PO Q6H PRN albuterol sulfate 90 mcg/actuation 2 puffs PO Q6H PRN aspirin 81 mg PO DAILY 90 days [Kneeling Scooter As directed] losartan 25 mg PO DAILY 90 days meloxicam 15 mg PO DAILY methocarbamol 1,500 mg (2 x 750 mg) PO TID PRN montelukast 10 mg PO BEDTIME naproxen sodium (Anaprox DS) 550 mg PO BID PRN oxymetazoline 0.05% (Afrin (oxymetazoline)) 2 sprays intranasal Q12H PRN 3 days Tobacco use date assessed: 09/10/24 Dental Screening Dental Screen Date: 09/10/24 Did you have a dental visit in the last 12 months?: No Did you have a dental problem in the last 6 months where you did not have access to dental care?: No Was dental information given to patient?: Patient has dentist HPI Annual exam HPI Details Patient comes in today for his annual physical examination States that he currently feels okay He denies any headaches or dizziness Denies any chest pains, no SOB No nausea/vomiting, no abdominal pain No change in bowel habits noted Feels that his umbilical hernia has gotten bigger lately - he recalls being seen by surgery for this a few years ago (sometime around 2017) and was advised that it was too small at the time to have any intervention done As this appears to have gotten a lot bigger lately, he would like to go back and have surgery take care of this now if possible He denies any acute urinary symptoms He continues to use his CPAP device every night when he is sleeping and feels that this is helping him a lot States that he was not able to get his labs done yet but wants to know if he can go and get them done now as he has not yet eaten anything since he woke up this morning Would also like to know if he can try one of the new weight loss medications as he has not been able to go back to exercising at the gym everyday like he did in the past now that he has a small daughter at home States that he still tries to work out at the gym after work for an hour a couple of times a week but has not been able to lose any significant amount of weight lately [facility] Medical History Obstructive sleep apnea Elevated blood pressure reading Excess skin of abdominal wall Paresthesia of left arm Anxiety Obesity (BMI 30-39.9) Pure hypercholesterolemia Vitamin D deficiency Asthma Surgical History History of hip surgery History of tonsillectomy Family History Father Healthy adult Mother No problems noted. 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 1. Little interest or pleasure in doing things: not at all 2. Feeling down, depressed, or hopeless: not at all 3. Trouble falling or staying asleep, or sleeping too much: not at all 4. Feeling tired or having little energy: not at all 5. Poor appetite or overeating: not at all 6. Feeling bad about yourself - or that you are a failure or have let yourself or your family down: not at all 7. Trouble concentrating on things, such as reading the newspaper or watching television: not at all 8. Moving or speaking so slowly that other people could have noticed. Or the opposite - being so fidgety or restless that you have been moving around a lot more than usual: not at all 9. Thoughts that you would be better off or of hurting yourself in some way: not at all Total score: 0 Depression Screening Interpretation: Negative Depression Screening Done: Yes 98284 - PHQ-9 Billing: Yes Source: Developed by Drs. Nadir Bean, Alysa Hernandez, Helder Hayes and colleagues, with an educational maia from [employer]. Thrive Questionnaire Date Thrive assessed: 09/10/24 I am a: Patient What is your living situation today?: I have a steady place to live Within the past 12 months, did the food you bought not last and you didn't have the money to get more?: Never true Within the past 12 months, did you worry whether your food would run out before you got money to buy more?: Never true Do you have trouble paying for medicines?: No Do you have trouble getting transportation to medical appointments?: No Do you have trouble paying your heating and electricity bill?: No Do you have trouble taking care of your child, family member or friend?: No Do you have trouble with day-to-day activities such as bathing, preparing meals, shopping, managing finances, etc.?: No Are you currently unemployed and looking for a job?: No Are you interested in more education?: No Please select the resources that you would like help with: None Currently or been in a relationship where the following occur: No concerns reported THRIVE Score: 0 AUDIT C Alcohol Use Questionnaire (AUDIT-C) 1. How often do you have a drink containing alcohol?: Never 3. How often do you have six or more drinks on one occasion?: Never Total Score: 0 Score Reviewed/Action Taken: Yes KADY-7 AMB Questionnaire KADY-7 Date KADY - 7 assessed: 09/10/24 Feeling nervous, anxious, or on edge: 0 = Not at all Not being able to stop or control worryin = Not at all Worrying too much about different things: 0 = Not at all Trouble relaxin = Not at all Being so restless that it is hard to sit still: 0 = Not at all Becoming easily annoyed or irritable: 0 = Not at all Feeling afraid as if something awful might happen: 0 = Not at all Total KADY-7 score (0-4 normal; 5-9 mild; 10-14 moderate; 15-21 severe): 0 Source: Developed by Drs. Nadir Bean, Alysa Hernandez, Helder Hayes and colleagues, with an educational maia from [employer]. Review of Systems Const Denies chills, Denies fatigue, Denies fever(s), Denies headache(s), Denies malaise and Denies weakness Eyes Denies blurry vision, Denies change in vision, Denies irritation and Denies itchy eyes ENT Denies dysphagia, Denies dizziness, Denies otalgia, Denies headache(s), Denies nasal congestion, Denies neck pain, Denies odynophagia and Denies sore throat Card Denies rapid heart rate, Denies irregular heart rhythm, Denies palpitations and Denies dyspnea Resp Denies chest congestion, Denies cough, Denies dyspnea and Denies wheezing GI Details: (+) hernia over the right upper periumbilical area Denies abdominal pain, Denies bloating, Denies constipation, Denies dysphagia, Denies heartburn, Denies diarrhea, Denies nausea, Denies odynophagia and Denies vomiting Denies hematuria, Denies difficulty urinating, Denies dysuria, Denies urinary frequency and Denies urinary urgency Musc Denies back pain, Denies arthralgias, Denies joint swelling, Denies muscle weakness and Denies neck pain Skin/Breast Denies change in pigmentation, Denies lesions, Denies rash and Denies unusual bruising Neuro Denies dizziness, Denies headache(s), Denies paresthesias and Denies weakness Endo Denies fatigue and Denies palpitations Aller/Immun Denies itchy eyes and Denies wheezing Physical exam (Primary Care) Vital Signs: Last Vital Signs Pulse 70 09/10/24 10:15 BP 110/72 09/10/24 10:15 Pulse Ox 96 09/10/24 10:15 Oxygen Delivery Method Room Air 09/10/24 10:15 BMI result Body Mass Index 39.6 Tobacco/Smoking Status: Tobacco use Status Tobacco use date assessed 09/10/24 09/10/24 10:22 Patient Tobacco Use Status Never used Tobacco 09/10/24 10:22 e-Cigarette/Vaping Use Never Used 09/10/24 10:22 PHQ-9: PHQ-9 Score PHQ-9: Total score 0 09/10/24 10:22 Depression Screening Interpretation: Negative Thrive Assessment: Date of Thrive Assessment Date Thrive assessed 09/10/24 09/10/24 10:22 Currently or been in a relationship where the following occur: No concerns reported Const General: no acute distress, alert and awake Orientation/consciousness: patient oriented x3 HENMT Head: Yes normocephalic and Yes atraumatic Ears: external ears normal, TM's normal bilaterally and EAC's normal General nose exam: No nasal discharge present Face and sinus: Yes normal facial exam and Yes sinuses nontender Teeth and gingiva: dentition normal Throat: Yes posterior oropharynx normal and Yes tonsils normal (no TP congestion) Eyes Eyelids: Yes eyelids normal Conjunctivae: conjunctivae normal Pupils: Equal, round and reactive pupils present EOM: EOMs intact bilaterally Neck Neck: Yes no lymphadenopathy and Yes supple Thyroid: Thyroid normal Resp Auscultation: clear to auscultation bilaterally, no rales and no wheezes Cardio Rate: regular rate Rhythm: regular rhythm Heart sounds: no murmurs GI Palpation (GI): Soft to palpation, nontender, No hepatosplenomegaly present and Hernia present (periumbilical) Auscultation: normal bowel sounds General: Yes no CVA tenderness Back/Spine/Pelvis Back: no CVA tenderness Thoracic/Lumbar Spine: thoracic and lumbar spine normal to inspection Skin Lesions: no lesions Rashes: no rashes Neuro General: patient oriented x3, moves all extremities, no focal motor deficits and CN's II-XI intact bilaterally Cranial nerves: Yes Equal, round and reactive pupils present Cognition (Neuro): normal cognition Gait exam (Neuro): Normal gait present Extrem General: Yes no clubbing, cyanosis or edema Coding Level of Care Code Est Pt Prev Care 40-64y(62986) Diagnoses Annual physical exam Z00.00 Obstructive sleep apnea G47.33 Pure hypercholesterolemia E78.00 Benign essential hypertension I10 Mild intermittent asthma without complication J45.20 Asthma severity: mild Asthma persistence: intermittent Asthma complication type: uncomplicated Vitamin D deficiency E55.9 Periumbilical hernia K42.9 Anxiety F41.9 Obesity (BMI 30-39.9) E66.9 Colon cancer screening Z12.11 Additional Codes PHQ-9 - 90008 - PHQ-9 Billing: Yes ([id number]) Assessment & Plan Assessment & Plan (1) Annual physical exam: Code(s): Z00.00 - Encounter for general adult medical examination without abnormal findings Category: Medical Plan: Check labs - his lab orders are updated and he can go and get them done today He is also now due to start colon cancer screening at age 43 and will be referred for this (2) Obstructive sleep apnea: Comment: Mild to moderate degree of sleep apnea. The AHI was 15/hr and oxygen denise was 86%. Code(s): G47.33 - Obstructive sleep apnea (adult) (pediatric) Category: Medical Plan: He was diagnosed with moderate RADHA on previous sleep study Continue using his CPAP device when sleeping at night Follow up with Sleep Medicine as scheduled (3) Pure hypercholesterolemia: Code(s): E78.00 - Pure hypercholesterolemia, unspecified Category: Medical Plan: Reinforced low cholesterol diet Will recheck his fasting lipids ABBE for follow up (4) Benign essential hypertension: Code(s): I10 - Essential (primary) hypertension Category: Medical Plan: Reinforced low sodium diet Patient used to take Losartan 25 mg QD (had a recurrent cough when he was on Lisinopril previously) but he stopped taking Losartan when his BP improved significantly after he was able to lose weight down to about 220 pounds a few years ago He has since gained weight again to his current 292.5 pounds His BP has been up and down over the past few years and with his current symptoms, he was advised to go back on Losartan 25 mg QD, which he is still on at present and appears to be doing well on it Have advised patient to continue monitoring his blood pressure regularly (5) Asthma: Code(s): J45.909 - Unspecified asthma, uncomplicated Category: Medical Qualifiers: Asthma severity: mild Asthma persistence: intermittent Asthma complication type: uncomplicated Qualified Code(s): J45.20 - Mild intermittent asthma, uncomplicated Plan: Controlled - continue Montelukast 10 mg QD and Albuterol HFA 2 inhalations every 6 hours as needed (6) Vitamin D deficiency: Code(s): E55.9 - Vitamin D deficiency, unspecified Category: Medical Plan: He has not been taking his Vitamin D supplements in a while now Will recheck his Vitamin D level ABBE for follow up (7) Periumbilical hernia: Code(s): K42.9 - Umbilical hernia without obstruction or gangrene Category: Medical Plan: He recalls being seen by surgery for this a few years ago (sometime around 2017) and was advised that it was too small at the time to have any intervention done Patient states that this has gotten a lot bigger lately and he would like to go back and have surgery take care of this if possible Will refer him again to surgery for further evaluation and management (8) Anxiety: Code(s): F41.9 - Anxiety disorder, unspecified Category: Medical Plan: He used to take Hydroxyzine PRN but stopped taking it a while back when he felt that his anxiety was better controlled although he has been getting more anxious again lately due to his recurrent chest symptoms He still does not wish to take anything for his anxiety at this time (9) Obesity (BMI 30-39.9): Code(s): E66.9 - Obesity, unspecified Category: Medical Plan: Reinforced diet/exercise as tolerated/lose weight Per request, will try starting him on Zepbound 2.5 mg SQ once a week but advised patient that this will likely need insurance approval first, which is not a guarantee at this time (10) Colon cancer screening: Code(s): Z12.11 - Encounter for screening for malignant neoplasm of colon Category: Medical Plan: Will refer him to GI for screening colonoscopy Plan Follow up in 4 months Orders: Orders Prostate Specific Antigen Scr Today Z00.00 - Encounter for general adult medical examination without abnormal findings Referrals General Surgery Referral K42.9 - Umbilical hernia without obstruction or gangrene Gastroenterology Referral Z12.11 - Encounter for screening for malignant neoplasm of colon Medications: New Zepbound (tirzepatide (weight loss)) for 4 weeks 2.5 mg (0.5 mL) subcut QWEEK 4 weeks 2 mL 0RF NS E66.9 - Obesity, unspecified, G47.33 - Obstructive sleep apnea (adult) (pediatric)
== END 2024-09-10 10:54 | disposition home or self-care (01) ==
LOC: HO.HMCH 10:14
PROVIDERS: PCP Internal Medicine; Visit Provider Internal Medicine
DX: Z00.00 Encounter for general adult medical examination without abnormal findings (principal); G47.33 Obstructive sleep apnea (adult) (pediatric); E66.9 Obesity, unspecified; Z68.39 Body mass index [BMI] 39.0-39.9, adult; E78.00 Pure hypercholesterolemia, unspecified; I10 Essential (primary) hypertension; J45.20 Mild intermittent asthma, uncomplicated; E55.9 Vitamin D deficiency, unspecified; K42.9 Umbilical hernia without obstruction or gangrene; F41.9 Anxiety disorder, unspecified; Z12.11 Encounter for screening for malignant neoplasm of colon

== ENCOUNTER 2024-09-10 10:13 | Outpatient (REF) | payer OTHER, SELFPAY ==
[2024-09-10 11:10] LABS: MANUAL DIFF FLAG NO
[2024-09-10 11:47] LABS: Appearance Urine Clear; Color Urine Yellow; Glucose Urine UA Negative (Negative); Leukocyte Esterase Urine Negative (Negative); Nitrite Urine Negative (Negative); PH 5.5 (5.0-9.0); Specific Gravity - Urine >= 1.030 (1.005-1.025); Urine Blood Negative (Negative); Urine Ketones Trace mg/dL (Negative); Urine Protein Negative (Neg-Trace)
[2024-09-10 11:53] LABS: Basophils Absolute Auto 0.1 X10*3/uL (0.0-0.2); Basophils Percent Auto 0.9 % (0-2); Eosinophils Absolute Auto 0.2 X10*3/uL (0.0-0.4); Eosinophils Percent Auto 2.3 % (0-4); Hematocrit 45.3 % (42.0-52.0); Imm Gran Abs Auto 0.03 X10*3/uL (0.00-0.03); Imm Gran Pct Auto 0.4 % (0.0-0.4); Lymphocytes Absolute Auto 2.9 X10*3/uL (1.2-4.9); Mean Corpuscular HGB Conc 33.1 g/dl (31.0-36.0); Mean Corpuscular Hemoglobin 30.1 pg (27.0-33.0); Monocytes Absolute Auto 0.7 X10*3/uL (0.1-1.2); Neutrophils Percent Auto 50.4 % (45-73); Platelet Count 320 X10*3/uL (160-400); Red Blood Count 4.98 X10*6/uL (4.60-5.80); White Blood Count 7.9 X10*3/uL (4.8-10.8)
[2024-09-10 12:11] LABS: Estimated Average Glucose 105 mg/dL; Hemoglobin A1c % 5.3 % (<6.0)
[2024-09-10 13:14] LABS: TSH reflex Free T4 3.14 uIU/mL (0.32-4.0); Vitamin D 25-OH Total 14.4 ng/mL (>30)
[2024-09-10 13:15] LABS: Anion Gap 13 (12-20)
[2024-09-10 13:20] LABS: Alanine Aminotransferase 26 U/L (0-40); Albumin Level 4.5 g/dL (3.5-5.0); Alkaline Phosphatase 68 U/L (39-117); Aspartate Amino Transferase 28 U/L (5-37); Bilirubin Total 0.8 mg/dL (0.0-1.0); Blood Urea Nitrogen 20 mg/dL (9-16); Calcium 9.6 mg/dL (8.4-10.2); Carbon Dioxide 25 mmol/L (22-29); Chloride 108 mmol/L (96-108); Cholesterol 244 mg/dL (<200); Estimated Glomerular Filt Rate > 60; Glucose Fasting 92 mg/dL (60-99); HDL Cholesterol 53 mg/dL (>40); LDL Cholesterol Calculated 168 mg/dL (<100); Sodium 142 mmol/L (135-145); Total Protein 7.3 g/dL (6.5-8.0); Triglycerides 115 mg/dL (<150)
== END 2024-09-10 10:14 | disposition home or self-care (01) ==
LOC: HO.LAB 10:13
PROVIDERS: PCP Internal Medicine; Visit Provider Internal Medicine
DX: Z00.00 Encounter for general adult medical examination without abnormal findings (principal); G47.33 Obstructive sleep apnea (adult) (pediatric); E78.00 Pure hypercholesterolemia, unspecified; I10 Essential (primary) hypertension; J45.20 Mild intermittent asthma, uncomplicated; E55.9 Vitamin D deficiency, unspecified; K42.9 Umbilical hernia without obstruction or gangrene; F41.9 Anxiety disorder, unspecified; E66.9 Obesity, unspecified; Z68.39 Body mass index [BMI] 39.0-39.9, adult; D64.9 Anemia, unspecified; R73.9 Hyperglycemia, unspecified; R30.0 Dysuria; Z12.5 Encounter for screening for malignant neoplasm of prostate
CPT/HCPCS: 36415; 80053; 80061; 81003; 82306; 83036; 84153; 84443; 85025; 96127

== ENCOUNTER 2024-10-18 13:59 | Outpatient (AMB) | payer OTHER, SELFPAY ==
--- NOTE | 2024-10-18 14:09 | MHC.OFFVIS ---
Vital Signs 10/18/24 14:13 Height 6 ft Weight 292 lb 8 oz BMI 39.7 BP 130/82 Blood Pressure Location Lt brachial Position Sitting Pulse 74 Intake Visit Reasons: hernia Intake Note: Patient is seen in office for evaluation of an umbilical hernia. Pt c/o: was seen in the past due to this issue, since hernia has increase, once in a while causes discomfort, weird denies n/v/d/c Seen by Dr Chen:2020 (ultrasound done) Steel Hanger Required: No Accompanied by: Self / Same As Patient Allergies dust, pollen Allergy (Mild, Uncoded 10/18/24 14:12) Unknown Medication List - Last Reconciled 10/18/24 by Ino Chen MD acetaminophen 1,000 mg (2 x 500 mg) PO Q6H PRN albuterol sulfate 90 mcg/actuation 2 puffs PO Q6H PRN aspirin 81 mg PO DAILY 90 days [Kneeling Scooter As directed] losartan 25 mg PO DAILY 90 days montelukast 10 mg PO BEDTIME naproxen sodium (Anaprox DS) 550 mg PO BID PRN oxymetazoline 0.05% (Afrin (oxymetazoline)) 2 sprays intranasal Q12H PRN 3 days HPI Comments Details: 44-year-old male patient presenting for re-evaluation of a ventral hernia. He was previously evaluated on 04/09/2019 for the similar hernia. He initially noted the hernia in 2015 while attempting to do sit-ups as part of a weight management program. At that time he felt a pop with a palpable lump adjacent to the umbilicus. Since this time the lump has continued to increase in size especially while doing exercises. He denies nausea, vomiting, fever, chills, diarrhea, constipation or bloody stools. He denies previous surgery at this location. The hernias noted to reduce when in bed but immediately increases in size when in the standing position. He is requesting repair of this ventral/umbilical hernia. [facility] Medical History Obstructive sleep apnea Elevated blood pressure reading Excess skin of abdominal wall Paresthesia of left arm Anxiety Obesity (BMI 30-39.9) Pure hypercholesterolemia Vitamin D deficiency Asthma Surgical History History of hip surgery History of tonsillectomy Family History Father Healthy adult Mother No problems noted. 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 Cognitive needs: No Hearing needs: No Vision needs: Yes (Glasses) Review of Systems Const All systems reviewed & are unremarkable except as noted in HPI and below Physical Exam Vital Signs: Last Vital Signs Pulse 74 10/18/24 14:13 BP 130/82 10/18/24 14:13 BMI result Body Mass Index 39.7 Const General: cooperative and no acute distress Nutritional Appearance: well nourished Orientation/consciousness: patient oriented x3 Limitations: no limitations HEENT Head: Yes normocephalic and Yes atraumatic Ears: hearing grossly normal bilaterally Resp Effort & Inspection: normal respiratory effort, no audible wheezes, no cough and no respiratory distress Cardio Jugular venous distension: no JVD GI Other: Palpable/visible hernia noted just above the umbilicus to the right of midline measuring approximately 4 cm in diameter. The hernia increases in size with Valsalva maneuvers but does reduce when in the supine position. There was no overlying skin changes no tenderness to palpation. Inspection: Yes normal to inspection Abdomen image:  1. Site of palpable hernia just above the umbilicus. Skin Other: Warm, dry, no rash Neuro General: patient oriented x3 Extrem General: Yes no clubbing, cyanosis or edema Assessment & Plan Assessment & Plan (1) Periumbilical hernia: Code(s): K42.9 - Umbilical hernia without obstruction or gangrene Category: Medical Plan 44-year-old male patient returning for re-evaluation of a ventral/umbilical hernia. The hernia has increased in size in his now causing some mild discomfort. I recommended repair of this umbilical hernia with mesh and after discussion of the procedure, risks, and alternatives, he consents to the surgery. This will be scheduled as a short-stay surgery. He understands that he will need to avoid lifting greater than 10 lb for approximately 1 month following the surgery. Coding Level of Care Code New Pt Level 4 (37095) Diagnoses Periumbilical hernia K42.9
[2024-10-18 14:13] VITALS: BP 130/82; PULSE 74; BMI 39.7
== END 2024-10-18 14:21 | disposition home or self-care (01) ==
PROVIDERS: PCP Internal Medicine; Visit Provider Surgery
DX: K42.9 Umbilical hernia without obstruction or gangrene (principal)
CPT/HCPCS: 99204

== ENCOUNTER 2024-11-24 05:46 | Day surgery (SDC) | payer OTHER, SELFPAY ==
[2024-11-22 13:50] VITALS: BMI 39.7
--- NOTE | 2024-11-23 09:07 | HO.ANESPROP2 ---
Documented by User: Sommer Mendoza NP 11/23/24 09:10 HPI - Anesthesia Eval Consult details Narrative: 44yo M for Repair Hernia Umbilical Reducible with mesh PMFSH Active Problems Active Problems: All Active Problems Colon cancer screening (Acute) Periumbilical hernia (Acute) Hordeolum externum of right lower eyelid (Acute) Fracture of fifth metatarsal bone of left foot (Acute) Fracture of fifth metatarsal bone of left foot with routine healing (Acute) Jacobs fracture (Acute) Benign essential hypertension (Acute) Chest pressure (Acute) Chest pain (Acute) Upper respiratory tract infection (Acute) Annual physical exam (Acute) Obstructive sleep apnea (Acute) Elevated blood pressure reading (Acute) Snoring (Acute) 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 Sister Healthy adult Surgical History Surgical History History of hip surgery History of tonsillectomy Social History Social History Housing: House Are you a primary patient care assistant to a significant other at home: No Do you presently have visiting nurse or other home services: No Alcohol intake: current Alcohol intake frequency: a few times a week Patient Tobacco Use Status: Never used Tobacco e-Cigarette/Vaping Use: Never Used Second Hand Smoke Exposure: No Use of substances other than those prescribed or required for medical reasons: No Have you been hit, kicked, punched, or otherwise hurt by someone within the past year? 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 Rate : 71 BPM Atrial Rate : 71 BPM P-R Int : 178 ms QRS Dur : 102 ms QT Int : 388 ms P-R-T Axes : 22 -43 18 degrees QTcB Int : 421 ms Normal sinus rhythm Possible Left atrial enlargement Left axis deviation Incomplete right bundle branch block Abnormal ECG When compared with ECG of 08-Jan-2023 17:58, No significant change was found Exercise Stress 2023 Protocol: JOHN Max HR: 151 BPM 85% of Pred: 176 BPM Max BP: 188/088 mmHG Max Work Load: 10.4 METS Exercise stress test exercise 9 min 13 sec of John protocol acvhieivng 85% MPHR, witrhout anginal symptoms, with isolated PAC, with normotensive repsonse, without EKG changes. Test reviewed with Dr. Muro ECHO 2022 Conclusions: - 1. Normal LV ejection fraction 60 65% with mild LVH with normal filling pattern 2. Normal cardiac valvular Doppler 3. Normal RV systolic pressure 4. Mildly dilated ascending aorta at 4.1 cm 5. No gross pericardial effusion Assessment and Plan Assessment Anesthesia Assessment: Chart Reviewed Documented by User: Vaibhav Bowden MD 11/24/24 07:14 [facility] Past Medical History Medical History Obstructive sleep apnea Elevated blood pressure reading Excess skin of abdominal wall Paresthesia of left arm Anxiety Obesity (BMI 30-39.9) Pure hypercholesterolemia Vitamin D deficiency Asthma Functional capacity: independent ambulation Family History Family History Father Healthy adult Mother No problems noted. Sister Healthy adult Family history of problems with anesthesia: No Surgical History Surgical History History of hip surgery History of tonsillectomy History of Problems with Anesthesia: No Social History Social History Housing: House Are you a primary patient care assistant to a significant other at home: No Do you presently have visiting nurse or other home services: No Alcohol intake: current Alcohol intake frequency: a few times a week Patient Tobacco Use Status: Never used Tobacco e-Cigarette/Vaping Use: Never Used Second Hand Smoke Exposure: No Use of substances other than those prescribed or required for medical reasons: No Have you been hit, kicked, punched, or otherwise hurt by someone within the past year? 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 Cognitive needs: No Hearing needs: No Vision needs: Yes (Glasses) Meds Allergies Allergy/AdvReac Type Severity Reaction Status Date / Time dust, pollen Allergy Mild Unknown Uncoded 11/24/24 06:19 Exam Exam Date and Time: 11/24/2024 Airway Mallampati Class: II TM Dist: >3cm Neck ROM: Full Heart: rrr Lungs: cta Assessment and Plan Final Anesthetic Review Family History of Problems with Anesthesia: No History of Problems with Anesthesia: No NPO: Yes ASA Class: II Final Preanesthetic Review: No Changes in Pt Med Stat, Meds/Allgs Chart Reviewed, Consent Obtained/Reviewed and Anes Risks/Benef Reviewed Patient Risk: Intermediate Procedure Risk: Low Anesthetic Plan Anesthetic Plan: GA Disposition: Standard PACU
[2024-11-24 06:24] VITALS: BP 132/82; PULSE 69; RESP 14; TEMP 36.7; O2SAT 95; BMI 39.8
[2024-11-24] MEDS: Lactated Ringers 1,000 ML 100 ML IVCONT (06:48)
--- NOTE | 2024-11-24 07:14 | HO.ANESPROP2 ---
[facility]LY [facility], [facility] Active Problems Active Problems: All Active Problems Colon cancer screening (Acute) Periumbilical hernia (Acute) Hordeolum externum of right lower eyelid (Acute) Fracture of fifth metatarsal bone of left foot (Acute) Fracture of fifth metatarsal bone of left foot with routine healing (Acute) Jacobs fracture (Acute) Benign essential hypertension (Acute) Chest pressure (Acute) Chest pain (Acute) Upper respiratory tract infection (Acute) Annual physical exam (Acute) Obstructive sleep apnea (Acute) Elevated blood pressure reading (Acute) Snoring (Acute) 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 (Acute) Excess skin of abdominal wall (Acute) Paresthesia of left arm (Acute) Anxiety (Acute) Obesity (BMI 30-39.9) (Acute) Pure hypercholesterolemia (Acute) Vitamin D deficiency (Acute) Asthma (Acute) Daytime somnolence (Acute) Witnessed episode of apnea (Acute) Cold sore (Acute) Past Medical History Medical History Obstructive sleep apnea Elevated blood pressure reading Excess skin of abdominal wall Paresthesia of left arm Anxiety Obesity (BMI 30-39.9) Pure hypercholesterolemia Vitamin D deficiency Asthma Functional capacity: independent ambulation Family History Family History Father Healthy adult Mother No problems noted. Sister Healthy adult Family history of problems with anesthesia: No Surgical History Surgical History History of hip surgery History of tonsillectomy History of Problems with Anesthesia: No Social History Social History Housing: House Are you a primary rn complex care to a significant other at home: No Do you presently have visiting nurse or other home services: No Alcohol intake: current Alcohol intake frequency: a few times a week Patient Tobacco Use Status: Never used Tobacco e-Cigarette/Vaping Use: Never Used Second Hand Smoke Exposure: No service: No Current occupational status: employed 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 Cognitive needs: No Hearing needs: No Vision needs: Yes (Glasses) Meds Allergies Allergy/AdvReac Type Severity Reaction Status Date / Time dust, pollen Allergy Mild Unknown Uncoded 11/24/24 06:19 Active Medications: Current Medications Albuterol Sulfate (Albuterol Sulfate (0.083%) 2.5 Mg/3 Ml Vial.Neb) 2.5 mg INHALE ONCE PRN PRN Reason: Shortness of Breath/Wheezing Lactated Ringer's (Lr) 1,000 mls @ 100 mls/hr IVCONT .Q10H JOSIANE Last Admin: 11/24/24 06:48 Dose: 100 mls/hr Exam Height,Weight and Vital Signs: Height 6 ft Weight 133 kg Last Vital Signs Temp 98.0 F 11/24/24 06:24 Pulse 69 11/24/24 06:24 Resp 14 11/24/24 06:24 BP 132/82 11/24/24 06:24 Pulse Ox 95 11/24/24 06:24 O2 Del Method Room Air 11/24/24 06:24 Assessment and Plan Final Anesthetic Review Family History of Problems with Anesthesia: No History of Problems with Anesthesia: No
--- NOTE | 2024-11-24 07:19 | MHC.SHP ---
Pre-Procedural Eval Section A - 24 Hr Update-Section A only Date of Service: 11/24/24 The patient is an INPATIENT: No Changes since office visit: Yes Patient answered all questions; No Cold of Flu in the past 2 weeks, No New Medical Problems and No Changes in Medication The patient has been examined within 24 hours of the surgical procedure. The History & Physical has been completed within 30 days and I have reviewed it.: No Section B - Complete if H&P > 30 days Chief Complaint: Umbilical hernia without obstruction or gangrene Details of Present Illness: No change in patient's symptoms. Relevant Family History (Specify if Yes): No Relevant Social History: None Present Medications: see Short Stay Collaborative assessment Medical History: No relevant PMH History of Previous Operations: No relevant previous surgery Allergies: Allergies Allergy/AdvReac Type Severity Reaction Status Date / Time dust, pollen Allergy Mild Unknown Uncoded 11/24/24 06:19 Review of Systems Sugical H&P ROS: Negative: Constitution, Cardiovascular, Respiratory, Neurological, Psychiatric, Hem-Onc, Allergic/Immunologic, Gastrointestinal, Genitourinary, Musculoskeletal and Integumentary Exam Surgical H&P Exam: Normal: HEENT, Normal: Heart, Normal: Lungs, Normal: Extremities, Normal: Abdomen and Normal: Skin Plan Diagnosis/Plan: Unchanged I have reviewed the history and physical and performed a pertinent physical examination on my patient. No changes have occurred unless specified. Time Spent With Patient Time: Total time managing care of this patient today ____ minutes.
--- NOTE | 2024-11-24 08:23 | W.PM.OPN ---
Operative Note Operative Note Date of Service: 11/24/24 Narrative: Preoperative diagnosis: Reducible umbilical hernia Postoperative diagnosis: Same Procedure: Repair of umbilical hernia with mesh Surgeon: Ino Chen MD Oil Well Gun Perforator Operator: Kris Newell PA-C, JANEE Floyd Anesthesia: General LMA Indications for procedure: 44-year-old male patient presenting with a gradually enlarging umbilical hernia which is causing discomfort. On exam the patient has a 4 cm reducible umbilical hernia Operative findings: 4 cm reducible umbilical hernia Specimen: None Estimated blood loss: Less than 2 mL Complications: None Procedure details: Patient was brought to the OR and placed in a supine position. After administering general anesthesia the patient's abdomen was prepped with ChloraPrep and draped in a sterile fashion. A surgical time-out was called the consent confirmed. Patient received preoperative antibiotics and Venodyne boots were in place. Local anesthesia consisting of 0.5% Sensorcaine with epinephrine was infiltrated circumferentially around the umbilicus. A curvilinear incision was made above the umbilicus transversely and carried out through subcutaneous tissue up to the hernia sac. The hernia sac was then sharply dissected down to the fascial defect. The fascial defect was further defined circumferentially in the hernia sac reduced into the abdominal cavity. No incarcerated bowel was noted within the sac. A preperitoneal space was then created both sharply and with electrocautery dissection. A 6.4 cm round Ventralex mesh was then obtained. This was deployed within the preperitoneal space and secured in 4 quadrants using a 1 Tycron suture. Fascia was then closed over the mesh using [id number] 1 Tycron sutures. Wounds were then irrigated with saline solution and suctioned dry. Additional local was infiltrated in the subcutaneous tissue. Dermis was then reapproximated using interrupted 3-0 Polysorb sutures. Skin was closed using a running subcuticular 4-0 Polysorb suture. Sterile dressings consisting of Steri-Strips, 4 x 4 gauze and Tegaderm were then applied. The patient tolerated the procedure well. Sponge, instrument, and needle counts reported as correct. The patient was transferred to PACU in stable condition.
[2024-11-24 08:42] VITALS: BP 116/75; PULSE 63; RESP 16; TEMP 36.3; O2SAT 95
[2024-11-24 08:47] VITALS: BP 111/64; PULSE 69; RESP 18; O2SAT 95
[2024-11-24 08:52] VITALS: BP 113/64; PULSE 63; RESP 18; O2SAT 95
[2024-11-24 08:57] VITALS: BP 113/69; PULSE 59; RESP 18; O2SAT 94
[2024-11-24] MEDS: oxyCODONE HCl Immed Release 5 MG TABLET PO (08:57)
[2024-11-24 09:12] VITALS: BP 116/69; PULSE 60; RESP 18; TEMP 36.4; O2SAT 94
== END 2024-11-24 09:26 | disposition home or self-care (01) ==
PROVIDERS: PCP Internal Medicine; Visit Provider Surgery
PROC: (CPT 49593; principal; 2024-11-24 07:30)
DX: K42.9 Umbilical hernia without obstruction or gangrene (principal); R03.0 Elevated blood-pressure reading, without diagnosis of hypertension; J45.909 Unspecified asthma, uncomplicated; E55.9 Vitamin D deficiency, unspecified; E78.00 Pure hypercholesterolemia, unspecified; G47.33 Obstructive sleep apnea (adult) (pediatric); F41.9 Anxiety disorder, unspecified; E66.9 Obesity, unspecified; Z68.39 Body mass index [BMI] 39.0-39.9, adult; Z79.1 Long term (current) use of non-steroidal anti-inflammatories (NSAID); Z79.82 Long term (current) use of aspirin; Z79.899 Other long term (current) drug therapy; Z91.048 Other nonmedicinal substance allergy status; Z98.890 Other specified postprocedural states
CPT/HCPCS: 49593; C1781; C9088; J0690; J1171; J1885; J2003; J2704; J3010

== ENCOUNTER → 2024-11-24 05:46 | Outpatient (BNV) | payer OTHER, SELFPAY | PROVIDERS: PCP Internal Medicine; Visit Provider Surgery | DX: K42.9 Umbilical hernia without obstruction or gangrene (principal) | CPT/HCPCS: 49593 ==

== ENCOUNTER 2024-12-03 09:08 | Outpatient (AMB) | payer OTHER, SELFPAY ==
--- NOTE | 2024-12-03 09:16 | A.OFFVIS_ITS ---
Vital Signs 3 12/03/24 09:23 Weight 295 lb BP 142/104 H Blood Pressure Location Rt brachial Position Sitting Pulse 79 Intake Visit Reasons: S/P umbilical hernia w/mesh Intake Note: Patient here s/o repair of umbilical hernia with mesh. Patient c/o: umbilical steri strips removed. Incision intact. No bleeding, oozing, inflammation noted. No longer taking rx pain meds. Surgery (): 11-24-2024 Emblem Drawer In Required: No Accompanied by: Self / Same As Patient Allergies dust, pollen Allergy (Mild, Uncoded 12/03/24 09:23) Unknown HPI HPI S/P umbilical hernia w/mesh: Details: Overall doing well, mild pain still but no longer requiring medication. Endorses some pain with certain movements make bending over, and prolonged sitting. Denies drainage from incision site, there was some itching but he has been avoiding scratching this area. Diet and bowel function are back to normal. Works at [employer], no heavy lifting involved. Wondering about returning to exercise, patient is an avid weightlifter [facility] Medical History (Updated 12/02/24 @ 12:43 by SAMANTHA Aguilera) Umbilical hernia (11/24/24) Obstructive sleep apnea Elevated blood pressure reading Excess skin of abdominal wall Paresthesia of left arm Anxiety Obesity (BMI 30-39.9) Pure hypercholesterolemia Vitamin D deficiency Asthma Surgical History (Updated 12/03/24 @ 09:42 by Kris Newell PA-C) History of hip surgery History of tonsillectomy Family History Father Healthy adult Mother No problems noted. 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 Some scabbing at the incision line. No palpable fluid collection no erythema, Steri-Strips removed in office Inspection: No distended Palpation (GI): Soft to palpation, not firm, nontender, no guarding and not rigid Abdomen image: 2 1. Neuro General: patient oriented x3 Assessment & Plan Assessment & Plan (1) S/P umbilical hernia repair, follow-up exam: Code(s): Z09 - Encounter for follow-up examination after completed treatment for conditions other than malignant neoplasm Category: Surgical Plan 44-year-old male s/p umbilical hernia repair on 11/24 returned to the office for routine follow-up. Overall patient doing well pain is well managed at this point, improving. Does have some pain with prolonged sitting, similar to what he would experience at work. Appetite and bowel function at baseline. On exam patient's abdomen is soft and benign, the incision appears to be healing well there was some mild scabbing, advised him not to pick these scabs often let them fall off on their own, he understands. No concern for an incision site infection at this time. We will continue with activity restrictions for 6 weeks postop, I advised him that he will have to slowly returned to activity after this given that he is a active weightlifter, he understands this and plans to start slow, listen to his body and advance as tolerated once he is able to. He is to follow up in 3-4 weeks for another routine follow up. He can return as needed with any concerns prior Coding Level of Care Code Est Pt Level 3 (32965) Diagnoses S/P umbilical hernia repair, follow-up exam Z09
[2024-12-03 09:23] VITALS: BP 142/104; PULSE 79
== END 2024-12-03 09:33 | disposition home or self-care (01) ==
LOC: HO.HGS 09:08
PROVIDERS: PCP Internal Medicine
DX: Z09 Encounter for follow-up examination after completed treatment for conditions other than malignant neoplasm (principal)
CPT/HCPCS: 99213

== ENCOUNTER 2024-12-17 09:32 | Outpatient (AMB) | payer OTHER, SELFPAY ==
--- NOTE | 2024-12-17 09:33 | MHC.OFFVIS ---
Vital Signs 12/17/24 09:39 Weight 293 lb BP 138/80 Blood Pressure Location Rt radial Position Sitting Pulse 81 Intake Visit Reasons: s/p umbilical hernia w/mesh Intake Note: Patient is seen in office for 2 weeks follow up visit, post umbilical hernia repair. Patient c/o: no concerns. Incisions healed well. No longer taking rx pain meds. Feels ready to go back to work. 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 He underwent repair of umbilical hernia with mesh on 11/24/24. He tolerated the procedure well. He reports feeling well overall. He denies abd pain. He reports some very mild discomfort with bending certain ways. He does note some swelling on the right side of his incision which he is concerned about because this is how it looked when he had the hernia. He is tolerating a solid diet. He is moving his bowels normally. He has no other concerns. [facility] Medical History (Updated 12/02/24 @ 12:43 by SAMANTHA Aguilera) Umbilical hernia (11/24/24) Obstructive sleep apnea Elevated blood pressure reading Excess skin of abdominal wall Paresthesia of left arm Anxiety Obesity (BMI 30-39.9) Pure hypercholesterolemia Vitamin D deficiency Asthma Surgical History (Updated 12/03/24 @ 09:42 by Kris Newell PA-C) History of hip surgery History of tonsillectomy Family History Father Healthy adult Mother No problems noted. 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 Cognitive needs: No Hearing needs: No Vision needs: Yes (Glasses) Review of Systems Const All systems reviewed & are unremarkable except as noted in HPI and below Physical Exam Vital Signs: Last Vital Signs Pulse 81 12/17/24 09:39 BP 138/80 12/17/24 09:39 Const Orientation/consciousness: patient oriented x3 Resp Effort & Inspection: normal respiratory effort GI Other: some mild edema lateral to umbilicus/incision site on right, no palpable hernia with valsalva, no fluctuance moderate amount of induration surrounding the incision incision well healed, no erythema, no drainage Skin General skin exam: no rashes or lesions noted Neuro General: patient oriented x3 and moves all extremities Assessment & Plan Assessment & Plan (1) S/P umbilical hernia repair, follow-up exam: Code(s): Z09 - Encounter for follow-up examination after completed treatment for conditions other than malignant neoplasm Category: Surgical Plan 44 year old male presenting for routine follow up s/p repair of umbilical hernia with mesh on 11/24/24. He is doing well post operatively. He does have some mild residual edema and induration surrounding the incision however no evidence of hernia recurrence and the incision itself is clean appearing without evidence of infection. He was reassured this is likely just post operative changes and will improve over time. He was instructed on continuing no heavy lifting until 4-6 weeks post operatively. He can follow up as needed with concerns. Patient comfortable with plan, all questions answered. Coding Level of Care Code Est Pt Level 2 (67434) Diagnoses S/P umbilical hernia repair, follow-up exam Z09
[2024-12-17 09:39] VITALS: BP 138/80; PULSE 81
== END 2024-12-17 10:10 | disposition home or self-care (01) ==
LOC: HO.HGS 09:33
PROVIDERS: PCP Internal Medicine; Visit Provider Physician Assistant Surgical
DX: Z09 Encounter for follow-up examination after completed treatment for conditions other than malignant neoplasm (principal)
CPT/HCPCS: 99212

== ENCOUNTER → 2024-12-17 09:32 | Outpatient (BNVA) | payer OTHER, SELFPAY | PROVIDERS: PCP Internal Medicine; Visit Provider Physician Assistant Surgical | DX: K42.9 Umbilical hernia without obstruction or gangrene (principal); Z98.890 Other specified postprocedural states; Z13.89 Encounter for screening for other disorder ==

== ENCOUNTER 2025-01-14 10:12 | Outpatient (AMB) | payer OTHER, SELFPAY ==
[2025-01-14 10:18] VITALS: BP 122/96; PULSE 81; O2SAT 96; BMI 39.9
--- NOTE | 2025-01-14 10:18 | A.OFFPC_ITS ---
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 Accompanied by: Self / Same As Patient Allergies dust, pollen Allergy (Mild, Uncoded 01/14/25 11:17) Unknown Medication List - Last Reconciled 01/14/25 by Kofi Bright MD albuterol sulfate 90 mcg/actuation 2 puffs PO Q6H PRN cholecalciferol (vitamin D3) 50 mcg PO DAILY 90 days [Kneeling Scooter As directed] losartan 25 mg PO DAILY 90 days montelukast 10 mg PO BEDTIME oxymetazoline 0.05% (Afrin (oxymetazoline)) 2 sprays intranasal Q12H PRN 3 days Tobacco use date assessed: 01/14/25 Dental Screening Dental Screen Date: 01/14/25 Did you have a dental visit in the last 12 months?: No Did you have a dental problem in the last 6 months where you did not have access to dental care?: No Was dental information given to patient?: Patient has dentist HPI 4 month HPI Details Patient comes in today for his follow up visit States that he feels okay He denies any headaches or dizziness Denies any chest pains, no SOB No nausea/vomiting, no abdominal pain No change in bowel habits noted He had his umbilical hernia repair done by Dr. Chen a couple of months ago He would also like to know how he did on his labs done back in August 2024 [facility] Medical History Umbilical hernia (11/24/24) Obstructive sleep apnea Elevated blood pressure reading Excess skin of abdominal wall Paresthesia of left arm Anxiety Obesity (BMI 30-39.9) Pure hypercholesterolemia Vitamin D deficiency Asthma Surgical History (Updated 01/14/25 @ 12:26 by Kofi Bright MD) History of umbilical hernia repair History of hip surgery History of tonsillectomy Family History Father Healthy adult Mother No problems noted. 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 Depression Screening Interpretation: Negative Depression Screening Done: Yes Source: Developed by Drs. Nadir Bean, Alysa Hernandez, Helder Hayes and colleagues, with an educational maia from [employer]. Thrive Questionnaire Date Thrive assessed: 09/03/24 I am a: Patient What is your living situation today?: I have a steady place to live Within the past 12 months, did the food you bought not last and you didn't have the money to get more?: Never true Within the past 12 months, did you worry whether your food would run out before you got money to buy more?: Never true Do you have trouble paying for medicines?: No Do you have trouble getting transportation to medical appointments?: No Do you have trouble paying your heating and electricity bill?: No Do you have trouble taking care of your child, family member or friend?: No Do you have trouble with day-to-day activities such as bathing, preparing meals, shopping, managing finances, etc.?: No Are you currently unemployed and looking for a job?: No Are you interested in more education?: No Please select the resources that you would like help with: None Currently or been in a relationship where the following occur: No concerns reported THRIVE Score: 0 AUDIT C Alcohol Use Questionnaire (AUDIT-C) 1. How often do you have a drink containing alcohol?: Never 3. How often do you have six or more drinks on one occasion?: Never Total Score: 0 Score Reviewed/Action Taken: Yes KADY-7 AMB Questionnaire KADY-7 Date KADY - 7 assessed: 09/10/24 Source: Developed by Alysa Bobby, Helder Hayes and colleagues, with an educational maia from [employer]. Review of Systems Const Denies chills, Denies fatigue, Denies fever(s) and Denies headache(s) ENT Denies dysphagia, Denies dizziness, Denies otalgia, Denies headache(s), Denies neck pain, Denies odynophagia and Denies sore throat Card Denies rapid heart rate, Denies irregular heart rhythm, Denies palpitations and Denies dyspnea Resp Denies chest congestion, Denies cough and Denies dyspnea GI Denies abdominal pain, Denies constipation, Denies dysphagia, Denies heartburn, Denies diarrhea, Denies nausea, Denies odynophagia and Denies vomiting Denies difficulty urinating, Denies dysuria and Denies urinary frequency Musc Denies back pain, Denies arthralgias and Denies neck pain Skin/Breast Denies rash Neuro Denies dizziness, Denies headache(s) and Denies paresthesias Endo Denies fatigue and Denies palpitations Physical exam (Primary Care) Vital Signs: Last Vital Signs Pulse 81 01/14/25 10:18 BP 122/96 H 01/14/25 10:18 Pulse Ox 96 01/14/25 10:18 Oxygen Delivery Method Room Air 01/14/25 10:18 BMI result Body Mass Index 39.9 Tobacco/Smoking Status: Tobacco use Status Tobacco use date assessed 01/14/25 01/14/25 10:24 Patient Tobacco Use Status Never used Tobacco 01/14/25 10:24 e-Cigarette/Vaping Use Never Used 01/14/25 10:24 Depression Screening Interpretation: Negative Thrive Assessment: Date of Thrive Assessment Date Thrive assessed 09/03/24 01/14/25 10:24 Currently or been in a relationship where the following occur: No concerns reported Const General: no acute distress and alert HENMT Ears: TM's normal bilaterally and EAC's normal Throat: Yes posterior oropharynx normal and Yes tonsils normal (no TP congestion) Neck Neck: Yes supple and No lymphadenopathy Thyroid: Thyroid normal Resp Auscultation: clear to auscultation bilaterally, no rales and no wheezes Cardio Rate: regular rate Rhythm: regular rhythm Heart sounds: no murmurs GI Palpation (GI): Soft to palpation and nontender Auscultation: normal bowel sounds General: Yes no CVA tenderness Back/Spine/Pelvis Back: no CVA tenderness Thoracic/Lumbar Spine: No lumbar spinal tenderness Skin Rashes: no rashes Extrem General: Yes no clubbing, cyanosis or edema Results Reviewed Results Reviewed: Laboratory Tests 09/10/24 09/10/24 11:09 11:10 WBC 7.9 Hgb 15.0 Hct 45.3 Plt Count 320 Sodium 142 Potassium 4.0 Creatinine 0.96 Estimated GFR > 60 Fasting Glucose 92 Hemoglobin A1c % 5.3 Calcium 9.6 AST 28 ALT 26 Triglycerides 115 Cholesterol 244 H LDL Cholesterol, Calc 168 H HDL Cholesterol 53 PSA Screen 0.70 25-OH Vitamin D Total 14.4 L TSH 3.14 Ur Specific [place] >= 1.030 H Urine Protein Negative Urine Glucose (UA) Negative Urine Blood Negative Urine Nitrite Negative Ur Leukocyte Esterase Negative Coding Level of Care Code Est Pt Level 4 (48188) Diagnoses Pure hypercholesterolemia E78.00 Benign essential hypertension I10 Mild intermittent asthma without complication J45.20 Asthma severity: mild Asthma persistence: intermittent Asthma complication type: uncomplicated Obstructive sleep apnea G47.33 Vitamin D deficiency E55.9 Periumbilical hernia K42.9 Anxiety F41.9 Obesity (BMI 30-39.9) E66.9 Assessment & Plan Assessment & Plan (1) Pure hypercholesterolemia: Code(s): E78.00 - Pure hypercholesterolemia, unspecified Category: Medical Plan: Results of his labs done back in August 2024 reviewed and discussed with patient - have advised him that his cholesterol levels are still elevated and mostly unchanged from a couple of years ago Reinforced low cholesterol diet Will recheck his fasting lipids and labs in about 6 months for follow up (2) Benign essential hypertension: Code(s): I10 - Essential (primary) hypertension Category: Medical Plan: Reinforced low sodium diet Patient used to take Losartan 25 mg QD (had a recurrent cough when he was on Lisinopril previously) but he stopped taking Losartan when his BP improved significantly after he was able to lose weight down to about 220 pounds a few years ago He has since gained weight again to his current 292.5 pounds Continue Losartan 25 mg QD - he was started back on this Rx when he gained weight and his BP went back up Have advised patient to continue monitoring his blood pressure regularly (3) Asthma: Code(s): J45.909 - Unspecified asthma, uncomplicated Category: Medical Qualifiers: Asthma severity: mild Asthma persistence: intermittent Asthma complication type: uncomplicated Qualified Code(s): J45.20 - Mild intermittent asthma, uncomplicated Plan: Controlled - continue Montelukast 10 mg QD and Albuterol HFA 2 inhalations every 6 hours as needed (4) Obstructive sleep apnea: Comment: Mild to moderate degree of sleep apnea. The AHI was 15/hr and oxygen denise was 86%. Code(s): G47.33 - Obstructive sleep apnea (adult) (pediatric) Category: Medical Plan: He was diagnosed with moderate RADHA on previous sleep study Continue using his CPAP device when sleeping at night Follow up with Sleep Medicine as scheduled (5) Vitamin D deficiency: Code(s): E55.9 - Vitamin D deficiency, unspecified Category: Medical Plan: He has not been taking his Vitamin D supplements for a couple of years now Have advised patient that his Vitamin D level is low on his recent labs so will have patient start back on Vitamin D3 2000 units QD (6) Periumbilical hernia: Code(s): K42.9 - Umbilical hernia without obstruction or gangrene Category: Medical Plan: Resolved - S/P umbilical hernia repair by Dr. Chen a couple of months ago on 11/26/2024 (7) Anxiety: Code(s): F41.9 - Anxiety disorder, unspecified Category: Medical Plan: He used to take Hydroxyzine PRN but stopped taking it a while back when he felt that his anxiety was better controlled although he has been getting more anxious again lately due to his recurrent chest symptoms He still does not wish to take anything for his anxiety at this time (8) Obesity (BMI 30-39.9): Code(s): E66.9 - Obesity, unspecified Category: Medical Plan: Reinforced diet/exercise as tolerated/lose weight Per request, we tried starting him on Zepbound 2.5 mg SQ once a week but Rx was denied by his insurance Plan To return as scheduled in August 2025 for his next annual physical examination Orders: Orders Complete Blood Count Auto Diff 08/27/25 D64.9 - Anemia, unspecified, Z00.00 - Encounter for general adult medical examination without abnormal findings Comprehensive [place]. Panel Fast 08/27/25 E78.00 - Pure hypercholesterolemia, unspecified, Z00.00 - Encounter for general adult medical examination without abnormal findings Vitamin B12 and Folate 08/27/25 E53.8 - Deficiency of other specified B group vitamins, Z00.00 - Encounter for general adult medical examination without abnormal findings Vitamin D 25-OH Total 08/27/25 E55.9 - Vitamin D deficiency, unspecified, Z00.00 - Encounter for general adult medical examination without abnormal findings UA CC w/rflx Micro + Cult 08/27/25 R30.0 - Dysuria, Z00.00 - Encounter for general adult medical examination without abnormal findings Lipid Panel 08/27/25 E78.00 - Pure hypercholesterolemia, unspecified, Z00.00 - Encounter for general adult medical examination without abnormal findings TSH reflex Free T4 08/27/25 E78.00 - Pure hypercholesterolemia, unspecified, Z00.00 - Encounter for general adult medical examination without abnormal findings Medications: New cholecalciferol (vitamin D3) 50 mcg PO DAILY 90 caps 3RF 90 days E55.9 - Vitamin D deficiency, unspecified
== END 2025-01-14 11:51 | disposition home or self-care (01) ==
LOC: HO.HMCH 10:13
PROVIDERS: PCP Internal Medicine; Visit Provider Internal Medicine
DX: E78.00 Pure hypercholesterolemia, unspecified (principal); E66.9 Obesity, unspecified; Z68.39 Body mass index [BMI] 39.0-39.9, adult; I10 Essential (primary) hypertension; J45.20 Mild intermittent asthma, uncomplicated; G47.33 Obstructive sleep apnea (adult) (pediatric); E55.9 Vitamin D deficiency, unspecified; K42.9 Umbilical hernia without obstruction or gangrene; F41.9 Anxiety disorder, unspecified

== ENCOUNTER 2025-02-07 09:34 | Outpatient (AMB) | payer OTHER, SELFPAY ==
[2025-02-07 09:46] VITALS: BP 150/98; PULSE 76; O2SAT 97; BMI 41.0
--- NOTE | 2025-02-07 09:46 | A.OFFVIS_ITS ---
Vital Signs 02/07/25 09:46 Height 6 ft Weight 302 lb BMI 41.0 BP 150/98 H Blood Pressure Location Rt brachial Position Sitting Pulse 76 Pulse Source Pulse Oximeter Pulse Oximetry (%) 97 Oxygen Delivery Method Room Air Intake Visit Reasons: 6 mo follow up Intake Note: Patient presents follow up for RADHA. Compliance in chart. 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 02/22/21 sleep study result was significant for mild to moderate degree of sleep apena. The AHI was 15/hr and oxygen denise was 86%. Patient reports that he is in eligible to receive a new CPAP machine onto 08/09/2026. However, his respiratory company has provided him a loaner while the repair his current machine. He notes that as his machine is no longer under warranty, it will cost him 70 dollars to have the humidification heating system repaired. He states he is willing to pay this. Previous CPAP compliance report: CPAP compliance report reviewed between 04/28/2024 and 07/26/2024 Overall usage 94% Usage greater than 4 hours 94% Average usage on days used 6 hours and 59 minutes APAP 5-20 cm H2O with EPR set to 2 Maximum pressure 11.2 cm H2O Average leaks 24 L/min Residual AHI 2.8 per hour [facility] Medical History Umbilical hernia (11/24/24) Obstructive sleep apnea Elevated blood pressure reading Excess skin of abdominal wall Paresthesia of left arm Anxiety Obesity (BMI 30-39.9) Pure hypercholesterolemia Vitamin D deficiency Asthma Surgical History History of umbilical hernia repair History of hip surgery History of tonsillectomy Family History Father Healthy adult Mother No problems noted. 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 Cognitive needs: No Hearing needs: No Vision needs: Yes (Glasses) Physical Exam Vital Signs: Last Vital Signs Pulse 76 02/07/25 09:46 BP 150/98 H 02/07/25 09:46 Pulse Ox 97 02/07/25 09:46 Oxygen Delivery Method Room Air 02/07/25 09:46 BMI result Body Mass Index 41.0 Const General: no acute distress Orientation/consciousness: patient oriented x3 Resp Effort & Inspection: normal respiratory effort and able to speak in complete sentences Neuro General: patient oriented x3 Psych Mental Status: mental status grossly normal Speech and movement: Clear speech present Attitude: cooperative Assessment & Plan Assessment & Plan (1) Obstructive sleep apnea: Comment: Mild to moderate degree of sleep apnea. The AHI was 15/hr and oxygen denise was 86%. Code(s): G47.33 - Obstructive sleep apnea (adult) (pediatric) Category: Medical Plan For RADHA: Continue APAP [id number] w/ EPR 2 nightly > 4 hours, as pt continues to have good clinical effect from use. Note that patient is currently using a CPAP lunar from his respiratory company. Clean CPAP machine and supplies routinely. Change CPAP supplies routinely. Advised to use distilled water in CPAP water reservoir. Pt to contact us or respiratory company with any questions or concerns. Pt to follow-up in 12 months or sooner prn. Coding Level of Care Code Est Pt Level 3 (48143) Diagnoses Obstructive sleep apnea G47.33
== END 2025-02-07 10:07 | disposition home or self-care (01) ==
LOC: HO.HSMS 09:36
PROVIDERS: Visit Provider Nurse Practitioner Family
DX: G47.33 Obstructive sleep apnea (adult) (pediatric) (principal)
CPT/HCPCS: 99213